=== PATIENT | female | born 1980 ===

== ENCOUNTER 2018-05-01 11:35 | Emergency (ER) | payer OTHER ==
[2018-05-01 14:26] LABS: BASO % 0.4 % (0.0-2.0); EOS # 0.1 K/uL (0.0-0.7); EOS % 0.6 % (0.0-4.0); HEMOGLOBIN 13.9 g/dL (12.0-16.0); LYMPH # 1.7 K/uL (1.0-4.3); LYMPH % 18.2 % (20.0-40.0); MEAN CELL VOLUME 90.2 fl (81.0-99.0); MEAN CORPUSCULAR HEMOGLOBIN 30.6 pg (27.0-31.0); MEAN CORPUSCULAR HGB CONC 33.9 g/dL (33.0-37.0); MEAN PLATELET VOLUME 8.6 fl (7.2-11.7); MONO # 0.8 K/uL (0.0-0.8); MONO % 8.7 % (0.0-10.0); NEUT # 6.6 K/uL (1.8-7.0); NEUT % 72.1 % (50.0-75.0); NRBC % 0.1 % (0.0-0.0); RBC 4.55 Mil/uL (3.80-5.20); RED CELL DISTRIBUTION WIDTH 15.8 % (11.5-14.5); WHITE BLOOD COUNT 9.1 K/uL (4.8-10.8)
[2018-05-01 14:39] LABS: ALB/GLOB RATIO 1.3 (1.0-2.1); ALBUMIN 4.2 g/dL (3.5-5.0); ALT/SGPT 56 U/L (9-52); AST/SGOT 32 U/L (14-36); BLOOD UREA NITROGEN 17 mg/dl (7-17); CALCIUM 9.4 mg/dL (8.4-10.2); GFR NON-AFRICAN AMERICAN > 60
[2018-05-01] MEDS ORDERED: Potassium Chloride 20 mEq ER Tab PO ONE (15:05)
[2018-05-01] MEDS: Potassium Chloride 20 mEq ER Tab PO ONE (15:05)
--- NOTE | 2018-05-01 15:08 | ED PDOC ---
HPI: Eye Injury/Pain Time Seen by Provider: 05/01/18 13:34 Chief Complaint (Nursing): Eye Problem History Per: Patient History/Exam Limitations: no limitations Onset/Duration Of Symptoms: Days Current Symptoms Are (Timing): Still Present Injury To Eye?: No Wears Contact Lens?: No Associated Symptoms: Decreased Vision, Swelling, Discharge From Eye. denies: Pain, FB Sensation, Itching Additional History Per: Patient Additional Complaint(s): 37 y/o female with no significant PMH presents to the ED c/o bilateral eye redness, swelling, and discomfort x 1 week. States she has intermittent yellow eye drainage. Pt has a wide range of associated complaints to include blurry vision, frontal headache, rashes on legs, and feeling tremulous. Describes vision changes as floaters. 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 Pt has never been evaluated by a clinic or PMD. Pt has not taken any medications for her symptoms. She does not wear contact lenses or glasses. Denies chemical exposure, eye trauma, fevers, chills, eye pain, ear pain, sore throat, cough, SOB, chest pain, N/V/D, abdominal pain, urinary symptoms, back pain, neck pain, numbness, weakness, paresthesias. Past Medical History Reviewed: Historical Data, Nursing Documentation, Vital Signs Vital Signs: Last Vital Signs Temp 98 F 05/01/18 11:59 Pulse 88 05/01/18 11:59 Resp 16 05/01/18 11:59 BP 158/95 H 05/01/18 11:59 Pulse Ox 99 05/01/18 11:59 - Family History Family History: States: Unknown Family Hx - Home Medications Home Medications: Ambulatory Orders Medication Instructions Recorded Hydrocortisone 1% Cream [Cortizone 1 appl TP DAILY PRN #1 tube 05/01/18 1% Cream] Metoprolol Succinate [Toprol Xl] 25 mg PO DAILY #30 tab.er.24h 05/01/18 Polymyxin B Sulf/Trimethoprim 1 drop BOTHEYES Q3H #1 bottle 05/01/18 [Polymyxin B-Tmp Eye Drops] - Allergies Allergies/Adverse Reactions: Allergies Allergy/AdvReac Type Severity Reaction Status Date / Time No Known Allergies Allergy Verified 05/01/18 12:02 Review of Systems ROS Statement: Except As Marked, All Systems Reviewed And Found Negative Constitutional: Negative for: Fever, Chills Eyes: Positive for: Vision Change, Conjunctivae Inflammation, Redness. Negative for: Pain ENT: Negative for: Ear Pain, Nose Pain, Nose Congestion, Mouth Pain, Throat Pain, Throat Swelling Cardiovascular: Negative for: Chest Pain, Palpitations, Light Headedness Respiratory: Negative for: Cough, Shortness of Breath Gastrointestinal: Negative for: Nausea, Vomiting, Abdominal Pain Genitourinary Female: Negative for: Dysuria, Frequency Musculoskeletal: Negative for: Neck Pain, Shoulder Pain, Arm Pain, Back Pain, Hand Pain, Leg Pain, Foot Pain Skin: Positive for: Rash (right leg) Neurological: Positive for: Headache, Other ("shaky"). Negative for: Weakness, Numbness, Incoordination, Change in Speech, Confusion, Seizures, Altered Mental Status, Dizziness Physical Exam - Reviewed Nursing Documentation Reviewed: Yes Vital Signs Reviewed: Yes - Physical Exam Appears: Positive for: Well, Non-toxic, No Acute Distress Head Exam: Positive for: ATRAUMATIC, NORMAL INSPECTION, NORMOCEPHALIC Skin: Positive for: Warm, Dry, Rash (eczematous rash on right calf) Eye Exam: Positive for: EOMI, PERRL, Conjunctival injection. Negative for: Periorbital swelling, Periorbital tenderness ENT: Positive for: Normal ENT Inspection Neck: Positive for: Normal, Painless ROM Cardiovascular/Chest: Positive for: Regular Rate, Rhythm Respiratory: Positive for: Normal Breath Sounds. Negative for: Decreased Breath Sounds, Rales, Rhonchi, Wheezing Pulses-Radial (L): 2+ Pulses-Radial (R): 2+ Gastrointestinal/Abdominal: Positive for: Normal Exam, Bowel Sounds (normal), Soft. Negative for: Tenderness Back: Positive for: Normal Inspection Extremity: Positive for: Normal ROM. Negative for: Tenderness, Deformity, Swelling Lymphatic: Positive for: Normal Exam. Negative for: Adenopathy Neurologic/Psych: Positive for: Alert, speech and language assistant II-XII (intact), Oriented, Cerebellar Tests (normal), Gait (steady). Negative for: Motor/Sensory Deficits, Aphasia, Facial Droop - Laboratory Results Result Diagrams: 05/01/18 14:18 05/01/18 14:18 - ECG O2 Sat by Pulse Oximetry: 99 Medical Decision Making Medical Decision Making: Initial Plan: * CBC * CMP * TSH * IVF * Visual acuity Visual acuity: 20/25 bilaterally Potassium found to be 3.3, will give 20mEq KDur. Lab work otherwise unremarkable. 1520 While trying to d/c patient, bp was noted at 157/109. Patient is also complain ing of a new onset worsening headache associated with blurry vision. Denies nausea, vomiting, SOB, focal / neuro deficits, chest pain, or hx of htn. Will order CT head and EKG. CT head: no intracranial hemorrhage. chronic changes as noted in report. EKG: rate 72, NSR, intervals normal, no ST elevations Case discussed with Dr. Hanks. 1645 BP 160/110 Will attempt to lower pressure with oral agents and observe in ED for lowering of BP. Metoprolol 25mg given. 1745 Pressure persistently elevated at 160/109, will give Clonidine 0.1mg 1845 Pressure persistently elevated at 159/108, will give Clonidine 0.2mg Pt given something to eat, resting comfortably in bed with TV on. 1925 Pressure 137/93. Will give prescription for Metoprolol 25mg daily with instructions to followup with PMD or clinic within 2 days for BP check and management. Pt reports resolution of headache, asking to be discharged home. Risks of chronically elevated BP discussed with pt at length. Educated on use of prescription medications and importance of followup with PMD, Opthamology, and neurology. Pt verbalized understanding and agrees with plan of care. Pt stable for discharge home. Impression: Conjunctivitis, Elevated BP reading Plan: * metoprolol * hydrocortisone cream * polymixin B eye drops * increase fluids * PMD/clinic followup * Neurology followup * Opthalmology followup * return for new/worsening symptoms Disposition - Clinical Impression Clinical Impression: Conjunctivitis, Elevated blood pressure reading - Patient ED Disposition Is Patient to be Admitted: No Discussed With Dr.: Thiago Hanks (Recommends lowering of BP with oral medications) Counseled Patient/Family Regarding: Studies Performed, Diagnosis, Need For Followup, Rx Given - Disposition Referrals: Rupert Aguilar MD [Staff Provider] - Edward Adams MD [Medical Doctor] - [facility] [Outside] [facility] [Outside] Disposition: Routine/Home Disposition Time: 15:08 Condition: IMPROVED Additional Instructions: Use gotas para los ojos, cassidy gota por marycruz cada 3 horas mientras est despierto Irena metoprolol acssidy vez al da. Seguimiento con clnica dentro de 2 miles por presin arterial. Seguimiento con neurologa en 2 miles. Seguimiento con oftalmologa en 2 miles. Volver a la jude de emergencias con sntomas nuevos o que empeoran Prescriptions: Hydrocortisone 1% Cream [Cortizone 1% Cream] 1 appl TP DAILY PRN #1 tube PRN Reason: Itching / Pruritus Metoprolol Succinate [Toprol Xl] 25 mg PO DAILY #30 tab.er.24h Polymyxin B Sulf/Trimethoprim [Polymyxin B-Tmp Eye Drops] 1 drop BOTHEYES Q3H #1 bottle Instructions: Conjunctivitis (Pinkeye), Hypertension (ED) Forms: [employer] (Grenadian) Print Language: GAMBIAN
[2018-05-01 15:25] VITALS: RESP 18
--- NOTE | 2018-05-01 15:59 | CT ---
Date of service: 05/01/2018 PROCEDURE: CT HEAD WITHOUT CONTRAST. HISTORY: headache COMPARISON: None available. TECHNIQUE: Axial computed tomography images were obtained through the head/brain without intravenous contrast. Radiation dose: Total exam DLP = 725.14 mGy-cm. This CT exam was performed using one or more of the following dose reduction techniques: Automated exposure control, adjustment of the mA and/or kV according to patient size, and/or use of iterative reconstruction technique. FINDINGS: HEMORRHAGE: No intracranial hemorrhage. BRAIN: Evaluation of the intracranial parenchyma is remarkable only for dense calcifications at the medial bilateral basal ganglia. Intraparenchymal calcifications in patient under 40 years are abnormal, frequently the basis of inflammatory or infectious causes in the past. The differential diagnosis for this pattern is quite broad when the etiology is unknown and could include toxic poisoning (are monoxide, methanol and others), systemic metabolic abnormality (liver disease, hyperglycemia or hypoglycemia, Silviano disease and others), brain degenerative disorders such is Gates disease and neuro degenerative with brain iron accumulation, with neoplasm not excluded though this is symmetry of the current findings. The remainder of the cerebellum, brainstem and cerebellum appear normal. No mass effect. No suspicious extra-axial collection. VENTRICLES: Unremarkable. No hydrocephalus. CALVARIUM: Unremarkable. PARANASAL SINUSES: Unremarkable as visualized. No significant inflammatory changes. MASTOID AIR CELLS: Unremarkable as visualized. No inflammatory changes. OTHER FINDINGS: None. IMPRESSION: Dense bilateral basal ganglia calcifications are identified potentially from post infectious or post inflammatory causes though etiology is nonspecific. There is a lengthy differential diagnosis an neurological follow-up is advised. Please see discussion above. Exam otherwise unremarkable.
[2018-05-01 16:47] VITALS: O2SAT 99
[2018-05-01 19:52] VITALS: BP 137/90; PULSE 76; TEMP 98
--- NOTE | 2018-05-02 07:14 | CARD ---
APPROVED REPORT Date of service: 05/01/2018 EKG Measurement Heart [id number] <Conclusion> Normal sinus rhythm Normal ECG
== END 2018-05-01 19:50 | disposition home or self-care (01) ==
LOC: H.ER 11:35
DX: H10.9 Unspecified conjunctivitis (principal); Z79.899 Other long term (current) drug therapy

== ENCOUNTER 2018-05-31 12:50 | Emergency (ER) | payer SELFPAY ==
[2018-05-31 12:59] VITALS: RESP 18
[2018-05-31] MEDS ORDERED: Sodium Chloride 0.9% 1,000 ML IV STA (13:17)
--- NOTE | 2018-05-31 13:19 | ED PDOC ---
HPI: Hypertension/Hypotension Time Seen by Provider: 05/31/18 13:17 Chief Complaint (Nursing): High Blood Pressure Chief Complaint (Provider): HEADACHE History Per: Patient (38 Y/O FEMALE HERE WITH HEADACHE X 10 DAYS ONGOING. NOTED TO HAVE ELEVATED BLOOD PRESSURE. HAS BEEN ON HCTZ/LISINOPRIL BUT NOTED TO HAVE LOW POTASSIUM AND HCTZ D/C TODAY. WAS STARTED ON MOTRIN AND NORTRIPTYLINE THIS WEEK FOR HEADACHE. SENT TO HOSPITAL FOR ELEVATED BLOOD PRESSURE. DENIES ANY BRYANNA ST PAIN/SOB/ETC.) Past Medical History Reviewed: Historical Data, Nursing Documentation, Vital Signs Vital Signs: Last Vital Signs Temp 97.2 F L 05/31/18 12:56 Pulse 92 H 05/31/18 12:56 Resp 18 05/31/18 12:56 BP 199/127 H 05/31/18 12:56 Pulse Ox 100 05/31/18 12:56 - Medical History PMH: HTN - Family History Family History: States: Unknown Family Hx - Home Medications Home Medications: Ambulatory Orders Medication Instructions Recorded Hydrocortisone 1% Cream [Cortizone 1 appl TP DAILY PRN #1 tube 05/01/18 1% Cream] Metoprolol Succinate [Toprol Xl] 25 mg PO DAILY #30 tab.er.24h 05/01/18 Polymyxin B Sulf/Trimethoprim 1 drop BOTHEYES Q3H #1 bottle 05/01/18 [Polymyxin B-Tmp Eye Drops] - Allergies Allergies/Adverse Reactions: Allergies Allergy/AdvReac Type Severity Reaction Status Date / Time No Known Allergies Allergy Verified 05/31/18 12:56 Review of Systems ROS Statement: Except As Marked, All Systems Reviewed And Found Negative Neurological: Positive for: Headache Physical Exam - Reviewed Nursing Documentation Reviewed: Yes Vital Signs Reviewed: Yes - Physical Exam Appears: Positive for: Well, Non-toxic, No Acute Distress Head Exam: Positive for: ATRAUMATIC, NORMAL INSPECTION, NORMOCEPHALIC Skin: Positive for: Normal Color, Warm, DRY Eye Exam: Positive for: EOMI, Normal appearance, PERRL ENT: Positive for: Normal ENT Inspection Neck: Positive for: Normal, Painless ROM Cardiovascular/Chest: Positive for: Regular Rate, Rhythm Respiratory: Positive for: CNT, Normal Breath Sounds Gastrointestinal/Abdominal: Positive for: Normal Exam, Soft Back: Positive for: Normal Inspection Extremity: Positive for: Normal ROM Neurologic/Psych: Positive for: Alert, Oriented - Laboratory Results Result Diagrams: 05/31/18 13:40 05/31/18 13:40 - ECG O2 Sat by Pulse Oximetry: 100 - Progress ED Course And Treament: REGLAN 10 MG IV X 1 DOSE ACETAMINOPHEN 975MG X 1 DOSE NS 1 LITER 500ML PER HOUR HEAD CT: IMPRESSION: Stable unenhanced head CT with no acute interval findings as compared prior CT dated 05/01/2018. Bilateral medial basal ganglia calcifications are reiterated of uncertain origin. Clinically correlate further. REPEAT BP IMPROVED 142/82 Disposition - Clinical Impression Clinical Impression: Bilateral headaches, Hypertension - Patient ED Disposition Is Patient to be Admitted: No - Disposition Disposition: Routine/Home Disposition Time: 15:05 Condition: FAIR Instructions: Headache, Adult, DASH Diet Print Language: SETSWANA
[2018-05-31 13:50] LABS: URINE BILIRUBIN NEGATIVE (NEGATIVE); URINE BLOOD NEGATIVE (NEGATIVE); URINE CLARITY CLOUDY (Clear); URINE COLOR YELLOW (YELLOW); URINE GLUCOSE (UA) NEG (Normal); URINE LEUKOCYTE ESTERASE TRACE Leu/uL (Negative); URINE PROTEIN NEGATIVE (NEGATIVE); URINE UROBILINOGEN 0.2-1.0 mg/dL (0.2-1.0)
[2018-05-31 14:03] LABS: BASO % 0.2 % (0.0-2.0); EOS % 0.1 % (0.0-4.0); HEMOGLOBIN 12.9 g/dL (12.0-16.0); LYMPH # 1.2 K/uL (1.0-4.3); LYMPH % 9.3 % (20.0-40.0); MEAN CELL VOLUME 90.8 fl (81.0-99.0); MEAN CORPUSCULAR HEMOGLOBIN 30.1 pg (27.0-31.0); MEAN CORPUSCULAR HGB CONC 33.2 g/dL (33.0-37.0); MEAN PLATELET VOLUME 8.5 fl (7.2-11.7); MONO # 0.7 K/uL (0.0-0.8); MONO % 5.5 % (0.0-10.0); NEUT # 10.6 K/uL (1.8-7.0); NEUT % 84.9 % (50.0-75.0); NRBC % 0.1 % (0.0-0.0); PLATELET COUNT 229 K/uL (130-400); RBC 4.28 Mil/uL (3.80-5.20); RED CELL DISTRIBUTION WIDTH 16.2 % (11.5-14.5); WHITE BLOOD COUNT 12.5 K/uL (4.8-10.8)
--- NOTE | 2018-05-31 14:05 | CT ---
Date of service: 05/31/2018 PROCEDURE: CT HEAD WITHOUT CONTRAST. HISTORY: HEADACHE/HTN COMPARISON: Noncontrast head CT 05/01/2018. TECHNIQUE: Axial computed tomography images were obtained through the head/brain without intravenous contrast. Radiation dose: Total exam DLP = 769.65 mGy-cm. This CT exam was performed using one or more of the following dose reduction techniques: Automated exposure control, adjustment of the mA and/or kV according to patient size, and/or use of iterative reconstruction technique. FINDINGS: HEMORRHAGE: No intracranial hemorrhage. BRAIN: Stable dense bilateral medial basal ganglia calcifications are identified once again. Nevertheless, no interval disruption of the corticomedullary differentiation is appreciated overall, above and below the tentorium. There is no cortical edema or mass effect. Midline brain anatomy remains normal appearing as well as the posterior fossa contents. VENTRICLES: Unremarkable. No hydrocephalus. CALVARIUM: Unremarkable. PARANASAL SINUSES: Unremarkable as visualized. No significant inflammatory changes. MASTOID AIR CELLS: Unremarkable as visualized. No inflammatory changes. OTHER FINDINGS: None. IMPRESSION: Stable unenhanced head CT with no acute interval findings as compared prior CT dated 05/01/2018. Bilateral medial basal ganglia calcifications are reiterated of uncertain origin. Clinically correlate further.
[2018-05-31 14:16] LABS: ALB/GLOB RATIO 1.3 (1.0-2.1); ALBUMIN 4.1 g/dL (3.5-5.0); ALT/SGPT 43 U/L (9-52); AST/SGOT 26 U/L (14-36); BLOOD UREA NITROGEN 21 mg/dl (7-17); CALCIUM 9.1 mg/dL (8.4-10.2); GFR NON-AFRICAN AMERICAN > 60
[2018-05-31 14:26] LABS: SQUAMOUS EPITHIAL 5 /hpf (0-5)
[2018-05-31 15:17] LABS: LYMPHOCYTE 10 % (20-50); MONOCYTE 8 % (0-10); NEUTROPHIL 82 % (42-75); PLATELET ESTIMATE NORMAL (NORMAL); TOTAL CELLS COUNTED 100
[2018-05-31 15:18] LABS: ANISOCYTOSIS SLIGHT; LARGE PLATELETS PRESENT; MICROCYTOSIS SLIGHT; OVALOCYTES SLIGHT; POIKILOCYTOSIS SLIGHT; TEARDROP CELLS SLIGHT
[2018-05-31 16:05] VITALS: BP 146/78; PULSE 79; TEMP 97.9; O2SAT 98
--- NOTE | 2018-05-31 18:30 | CARD ---
APPROVED REPORT Date of service: 05/31/2018 EKG Measurement Heart [id number] <Conclusion> Normal sinus rhythm Normal ECG
== END 2018-05-31 16:03 | disposition home or self-care (01) ==
LOC: H.ER 12:50
DX: R51 Headache (principal); I10 Essential (primary) hypertension
CPT/HCPCS: 70450; 80053; 81003; 81025; 83735; 84484; 85025; 93005; 96374; 99284; J2765; J7030

== ENCOUNTER 2018-08-21 12:52 | Emergency (ER) | payer SELFPAY ==
[2018-08-21 12:52] VITALS: BMI 38.6
--- NOTE | 2018-08-21 15:40 | ED PDOC ---
HPI: General Adult Time Seen by Provider: 08/21/18 15:14 Chief Complaint (Nursing): Abnormal Labs Chief Complaint (Provider): Abnormal Labs History Per: Patient History/Exam Limitations: no limitations Onset/Duration Of Symptoms: Days Current Symptoms Are (Timing): Still Present Additional Complaint(s): Connor Hoang is a 38 year old female with a past medical history of hypertension who was sent to the ED by PMD for evaluation of abnormal labs. Patient states that she was recently diagnosed with an adrenal tumor and had lab workup done yesterday when they discovered that her potassium level was low and her PMD recommended her to present to the ED for evaluation. She reports that she is scheduled for a follow up PMD appointment next Sunday and is scheduled for an appointment with her transcription typist next Sunday. Patient also admits that she has had chronic weakness, body aches, and feeling of pressure in chest but states that it has been going on for some time and it isnt worse today. PMD: Lenny Thrasher Past Medical History Reviewed: Historical Data, Nursing Documentation, Vital Signs Vital Signs: Last Vital Signs Temp 97.4 F L 08/21/18 13:58 Pulse 94 H 08/21/18 13:58 Resp 16 08/21/18 13:58 BP 152/102 H 08/21/18 13:58 Pulse Ox 96 08/21/18 13:58 - Medical History PMH: HTN - Surgical History Surgical History: Cholecystectomy Other surgeries: Hysterectomy - Family History Family History: States: Unknown Family Hx - Social History Current smoker - smoking cessation education provided: No Alcohol: None Drugs: Denies - Immunization History Hx Tetanus Toxoid Vaccination: No Hx Influenza Vaccination: No Hx Pneumococcal Vaccination: No - Home Medications Home Medications: Ambulatory Orders Medication Instructions Recorded RX: Prednisone 50 mg PO DAILY #5 tablet 04/12/16 - Allergies Allergies/Adverse Reactions: Allergies Allergy/AdvReac Type Severity Reaction Status Date / Time No Known Allergies Allergy Verified 08/21/18 13:58 Review of Systems ROS Statement: Except As Marked, All Systems Reviewed And Found Negative Constitutional: Positive for: Weakness, Other (body aches ) Cardiovascular: Positive for: Chest Pain (pressure ) Physical Exam - Reviewed Nursing Documentation Reviewed: Yes Vital Signs Reviewed: Yes - Physical Exam Appears: Positive for: Well (overweight ), Non-toxic, No Acute Distress Head Exam: Positive for: ATRAUMATIC, NORMAL INSPECTION, NORMOCEPHALIC Skin: Positive for: Normal Color, Warm, DRY Eye Exam: Positive for: EOMI, Normal appearance, PERRL ENT: Positive for: Normal ENT Inspection Cardiovascular/Chest: Positive for: Regular Rate, Rhythm. Negative for: Murmur Respiratory: Positive for: Normal Breath Sounds. Negative for: Respiratory Distress Gastrointestinal/Abdominal: Positive for: Normal Exam, Soft. Negative for: Tenderness Extremity: Positive for: Normal ROM. Negative for: Deformity, Swelling Neurologic/Psych: Positive for: Alert, Oriented. Negative for: Motor/Sensory Deficits - Laboratory Results Result Diagrams: 08/21/18 16:11 08/21/18 21:10 - ECG ECG Rhythm: Positive for: Normal QRS, Normal ST Segment, Sinus Rhythm Rate: 82 O2 Sat by Pulse Oximetry: 96 (RA) Pulse Ox Interpretation: Normal Medical Decision Making Medical Decision Making: Time: 15:27 A/P: workup for hypokalemia --Basic labs, EKG --If potassium level within normal limits and labs otherwise unremarkable, patient will be discharged -- Will treat based on any abnormalities found Time: 2221 --Patient's potassium improved to 3.7 and patient is already instructed to follow up with transcription typist and PMD. --Return parameters were discussed. Scribe Attestation: Documented by Sheyla Sanchez, acting as a scribe for Terri Miller MD. Provider Scribe Attestation: All medical record entries made by the Scribe were at my direction and personally dictated by me. I have reviewed the chart and agree that the record accurately reflects my personal performance of the history, physical exam, medical decision making, and the department course for this patient. I have also personally directed, reviewed, and agree with the discharge instructions and disposition. Disposition - Clinical Impression Clinical Impression: Hypokalemia - Disposition Disposition: Routine/Home Disposition Time: 22:22 Condition: IMPROVED Additional Instructions: Follow up with transcription typist and primary medical doctor. Return to the emergency department if you develop chest pain, trouble breathing, weakness/dizziness, or other new symptoms. Instructions: Hypokalemia (DC) Forms: [employer] (Russian), [employer] (Sinhala) Print Language: CONGOLESE
[2018-08-21 16:34] LABS: BASO % 0.2 % (0.0-2.0); EOS % 0.2 % (0.0-4.0); HEMOGLOBIN 13.2 g/dL (12.0-16.0); LYMPH # 1.3 K/uL (1.0-4.3); MEAN CELL VOLUME 90.8 fl (81.0-99.0); MEAN CORPUSCULAR HEMOGLOBIN 30.7 pg (27.0-31.0); MEAN CORPUSCULAR HGB CONC 33.8 g/dL (33.0-37.0); MEAN PLATELET VOLUME 8.1 fl (7.2-11.7); MONO # 0.5 K/uL (0.0-0.8); MONO % 4.9 % (0.0-10.0); NEUT # 8.9 K/uL (1.8-7.0); NEUT % 82.7 % (50.0-75.0); NRBC % 0.2 % (0.0-0.0); RBC 4.29 Mil/uL (3.80-5.20); WHITE BLOOD COUNT 10.8 K/uL (4.8-10.8)
[2018-08-21 16:51] LABS: BLOOD UREA NITROGEN 20 mg/dl (7-17); CALCIUM 9.6 mg/dL (8.4-10.2); GFR NON-AFRICAN AMERICAN > 60
[2018-08-21] MEDS ORDERED: Potassium Chloride 20 mEq ER Tab PO ONE ×3 (16:58→20:54)
[2018-08-21] MEDS ORDERED: Potassium CL 10 MEQ/50 ML 100 ML ONE (17:03)
[2018-08-21] MEDS: Potassium CL 10 MEQ/50 ML 50 ML IVPB SCH ×2 (17:09→18:09)
[2018-08-21] MEDS ORDERED: Potassium Chloride 20 mEq ER Tab PO STA (19:54)
[2018-08-21 21:32] LABS: BLOOD UREA NITROGEN 16 mg/dl (7-17); CALCIUM 8.6 mg/dL (8.4-10.2); GFR NON-AFRICAN AMERICAN > 60
[2018-08-22 05:26] VITALS: BP 133/77; RESP 18; TEMP 97.7
[2018-08-24 09:49] VITALS: PULSE 82; O2SAT 96
== END 2018-08-21 22:35 | disposition home or self-care (01) ==
LOC: H.ER 12:52
DX: E87.6 Hypokalemia (principal); I10 Essential (primary) hypertension
CPT/HCPCS: 80048; 81025; 85025; 99284; J3480

== ENCOUNTER 2018-09-08 16:51 | Observation (INO) | payer MEDICAID, SELFPAY ==
[2018-09-08 16:51] VITALS: BMI 38.6
[2018-09-08 17:55] LABS: VENOUS BLOOD GAS BASE EXCESS 4.8 mmol/L (0.0-2.0); VENOUS BLOOD GAS PCO2 45 mmHg (40-60); VENOUS BLOOD GAS PO2 41 mm/Hg (30-55); VENOUS BLOOD PH 7.43 (7.32-7.43)
--- NOTE | 2018-09-08 17:55 | ED PDOC ---
HPI: Chest Pain Time Seen by Provider: 09/08/18 17:10 Chief Complaint (Nursing): Chest Pain Chief Complaint (Provider): Chest Pain History Per: Patient History/Exam Limitations: no limitations Onset/Duration Of Symptoms: Days Current Symptoms Are (Timing): Still Present Additional Complaint(s): 38 y/o female with a PMHx of keith's disease and HTN presents to the ED for evaluation of chest pain and shortness of breath. Patient reports of having mild chest pain over the past six months since being diagnosed with Keith's Disease. Patient states over the last two weeks, symptoms have worsened. Patient notes of getting progressively short of breath and having decreasing exercise tolerance. Patient reports of feeling her whole body getting more swollen, severely weak and notes of developing a rash to the upper chest and legs. Patient states she is additionally feeling anxious and lightheaded. Of note, patient reports of developing a non-productive cough, sore throat and rhinorrhea over the last two days. PMD: Lenny Thrasher Against Medical Advice - AMA Patient Left Against Medical Advice: The patient declines admission to the hospital and wishes to leave the Emergency Department. This action is against my medical advice. This decision was made with informed refusal. The patient was told that admission to the hospital is necessary. Explanation of the reasons why were discussed. The risks of leaving were explained to the patient and include, but are not limited to, worsening of known or currently unknown conditions, permanent disability and from undiagnosed or untreated conditions. The patient has the capacity to make this informed decision and understands my explanation of the current medical problem and risks of leaving. The patient voluntarily accepts these risks and signed an AMA form documenting our conversation. The patient was given the opportunity to ask questions and reconsider. The patient was encouraged to return to the Emergency Department at any time for further care. Past Medical History Reviewed: Historical Data, Nursing Documentation, Vital Signs Vital Signs: Last Vital Signs Temp 97.6 F 09/08/18 16:59 Pulse 98 H 09/08/18 17:09 Resp 16 09/08/18 16:59 BP 144/88 09/08/18 17:09 Pulse Ox 94 L 09/08/18 16:59 - Medical History PMH: [place]qu[place]'s Syndrome (with adrenal mass plan for surgical resection ), HTN - Surgical History Surgical History: Cholecystectomy - Family History Family History: States: No Known Family Hx - Social History Current smoker - smoking cessation education provided: No - Immunization History Hx Tetanus Toxoid Vaccination: No Hx Influenza Vaccination: No Hx Pneumococcal Vaccination: No - Home Medications Home Medications: Ambulatory Orders Medication Instructions Recorded Prednisone 50 mg PO DAILY #5 tablet 04/12/16 - Allergies Allergies/Adverse Reactions: Allergies Allergy/AdvReac Type Severity Reaction Status Date / Time No Known Allergies Allergy Verified 08/21/18 13:58 Review of Systems ROS Statement: Except As Marked, All Systems Reviewed And Found Negative (as per HPI) Constitutional: Positive for: Weakness, Other (decreasing exercise tolerance. 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 Truncal obesity noted) Head Exam: Positive for: ATRAUMATIC, NORMOCEPHALIC Skin: Positive for: Warm, Dry Eye Exam: Positive for: EOMI, PERRL ENT: Negative for: Pharyngeal Erythema, Tonsillar Exudate Neck: Positive for: Painless ROM, Supple Cardiovascular/Chest: Positive for: Regular Rate, Rhythm. Negative for: Murmur Respiratory: Positive for: Normal Breath Sounds. Negative for: Respiratory Distress Gastrointestinal/Abdominal: Positive for: Soft. Negative for: Tenderness Back: Positive for: Normal Inspection. Negative for: Decreased ROM Extremity: Positive for: Other (Non-pitting bilateral leg and arm edema) Lymphatic: Negative for: Adenopathy Neurologic/Psych: Positive for: Alert, Oriented (x3), Mood/Affect (Anxious Mood and Affect). 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 Plan: -- Type and Screen -- VBG -- EKG -- B-Type Natriuretic -- CMP -- Electrolyte, Urine -- Magnesium -- Phosphorus -- Thyroid Stimulating Hormone -- Troponin I -- ED Urine Dipstick -- CBC with Differentials -- D Dimer -- PTT -- Prothrombin Time -- CXR Portable -- Glucose, POC -- Blood Culture -- Urine Culture -- IV Insertion -- Influenza A B -- Urinalysis Accession No. : [id number] Patient Name / ID : TIM RENDON / [id number] Exam Date : 09/08/2018 17:49:34 ( Approved ) Study Comment : Sex / Age : F / 38Y Creator : Michael Butcher MD Dictator : Michael Butcher MD Chief Passenger Ship Steward/Stewardess : Analytical Consultant : Michael Butcher MD Approver2 : Report Date : 09/08/2018 18:23:18 My Comment : Date of service: 09/08/2018 HISTORY: sob COMPARISON: Chest radiograph dated 07/28/2009. FINDINGS: LUNGS: No active pulmonary disease. PLEURA: No significant pleural effusion identified, no pneumothorax apparent. CARDIOVASCULAR: No aortic atherosclerotic calcification present. Normal cardiac size. No pulmonary vascular congestion. OSSEOUS STRUCTURES: No significant abnormalities. VISUALIZED UPPER ABDOMEN: Normal. OTHER FINDINGS: None. IMPRESSION: No active disease. Time: 1917 -- Labs are unremarkable. Patient needs hospitalization for chest pain and shortness of breath with new onset DM. Discussed with Dr. Estrada, hospitalist who will be admitting the clinic patient. Time: 1941 -- Patient is requesting to leave against medical advice. [facility] [employer] Lead Jamel, #[id number] used. __ Scribe Attestation: Documented by Sergio Bella, acting as a scribe for Diamond Mojica MD. Provider Scribe Attestation: All medical record entries made by the Scribe were at my direction and personally dictated by me. I have reviewed the chart and agree that the record accurately reflects my personal performance of the history, physical exam, medical decision making, and the department course for this patient. I have also personally directed, reviewed, and agree with the discharge instructions and disposition. Disposition - Clinical Impression Clinical Impression: Chest pain, Shortness of breath - Patient ED Disposition Is Patient to be Admitted: No Counseled Patient/Family Regarding: Studies Performed, Diagnosis - Disposition Disposition: Against Medical Advice Disposition Time: 19:43 Condition: UNKNOWN
--- NOTE | 2018-09-08 18:26 | RAD ---
Date of service: 09/08/2018 HISTORY: sob COMPARISON: Chest radiograph dated 07/28/2009. FINDINGS: LUNGS: No active pulmonary disease. PLEURA: No significant pleural effusion identified, no pneumothorax apparent. CARDIOVASCULAR: No aortic atherosclerotic calcification present. Normal cardiac size. No pulmonary vascular congestion. OSSEOUS STRUCTURES: No significant abnormalities. VISUALIZED UPPER ABDOMEN: Normal. OTHER FINDINGS: None. IMPRESSION: No active disease.
[2018-09-08 18:28] LABS: BASO % 0.1 % (0.0-2.0); EOS % 0.1 % (0.0-4.0); HEMOGLOBIN 11.5 g/dL (12.0-16.0); LYMPH # 0.9 K/uL (1.0-4.3); LYMPH % 8.4 % (20.0-40.0); MEAN CELL VOLUME 91.3 fl (81.0-99.0); MEAN CORPUSCULAR HEMOGLOBIN 30.2 pg (27.0-31.0); MEAN CORPUSCULAR HGB CONC 33.1 g/dL (33.0-37.0); MEAN PLATELET VOLUME 8.4 fl (7.2-11.7); MONO # 0.7 K/uL (0.0-0.8); MONO % 6.5 % (0.0-10.0); NEUT # 9.3 K/uL (1.8-7.0); NEUT % 84.9 % (50.0-75.0); PLATELET COUNT 222 K/uL (130-400); RBC 3.82 Mil/uL (3.80-5.20); RED CELL DISTRIBUTION WIDTH 17.1 % (11.5-14.5)
[2018-09-08 18:39] LABS: ALB/GLOB RATIO 1.3 (1.0-2.1); ALBUMIN 3.6 g/dL (3.5-5.0); ALT/SGPT 46 U/L (9-52); AST/SGOT 19 U/L (14-36); BLOOD UREA NITROGEN 16 mg/dl (7-17); CALCIUM 8.8 mg/dL (8.4-10.2); GFR NON-AFRICAN AMERICAN > 60
[2018-09-08 18:42] LABS: INR 0.9; PROTHROMBIN TIME 10.6 Seconds (9.8-13.1)
[2018-09-08 18:45] LABS: PARTIAL THROMBOPLASTIN TIME 23.6 Seconds (25.6-37.1)
[2018-09-08 18:48] LABS: B-TYPE NATRIURETIC PEPTIDE 62.8 pg/ml (0-450)
[2018-09-08 18:52] LABS: D DIMER < 200 ng/mlDDU (0-230); SQUAMOUS EPITHIAL 10 /hpf (0-5); URINE BILIRUBIN NEGATIVE (NEGATIVE); URINE BLOOD NEGATIVE (NEGATIVE); URINE CLARITY SLIGHTY-CLOUDY (Clear); URINE COLOR YELLOW (YELLOW); URINE GLUCOSE (UA) >=500 mg/dL (NEGATIVE); URINE LEUKOCYTE ESTERASE TRACE Leu/uL (Negative); URINE PROTEIN NEGATIVE (NEGATIVE); URINE UROBILINOGEN 0.2-1.0 mg/dL (0.2-1.0)
[2018-09-08 19:06] LABS: BANDS 2 % (0-2); LYMPHOCYTE 9 % (20-50); MONOCYTE 5 % (0-10); NEUTROPHIL 84 % (42-75); PLATELET ESTIMATE NORMAL (NORMAL); TOTAL CELLS COUNTED 100
[2018-09-08] MEDS ORDERED: Insulin Regular 100 units/ml SC STA (19:12)
[2018-09-08 19:56] VITALS: BP 147/90; RESP 22; TEMP 98
[2018-09-08 20:09] VITALS: PULSE 91; O2SAT 94
--- NOTE | 2018-09-09 07:53 | CARD ---
APPROVED REPORT Date of service: 09/08/2018 EKG Measurement Heart [id number] <Conclusion> Normal sinus rhythm ST & T wave abnormality, consider lateral ischemia Abnormal ECG
== END 2018-09-08 20:16 | disposition left against medical advice (07) ==
LOC: H.ER 16:51 → H.ERHOLD 19:15
PROVIDERS: ADMIT Student in an Organized Health Care Education/Training Program; ATTEND Student in an Organized Health Care Education/Training Program
DX: R07.9 Chest pain, unspecified (principal); E24.9 Cushing's syndrome, unspecified; I10 Essential (primary) hypertension; R53.1 Weakness
CPT/HCPCS: 71045; 80053; 81003; 82436; 82803; 82948; 83735; 83880; 84100; 84132; 84300; 84443; 84484; 85025; 85378; 85610; 85730; 86850; 86900; 87040; 87086; 87804; 93005; 96372; 99285; G0378

== ENCOUNTER 2018-09-18 15:37 | Observation (INO) | payer MEDICAID, SELFPAY ==
--- NOTE | 2018-09-18 16:32 | ED PDOC ---
HPI: General Adult Time Seen by Provider: 09/18/18 16:10 Chief Complaint (Nursing): Abnormal Labs Chief Complaint (Provider): Abnormal Labs History Per: Patient History/Exam Limitations: no limitations Onset/Duration Of Symptoms: Days (x7) Current Symptoms Are (Timing): Still Present Additional Complaint(s): 38 year old female with a past medical history of Cushings disease and hypertension who is presenting to the ED for evaluation after being sent to the ER for low potassium. Patient reports feeling muscle pain diffusely associated with generalized weakness, body aches, shortness of breath, and fatigue ongoing for 1 week. She admits that she had outpatient blood work done and was called today to present to the ED for a potassium level of 2.9. Patient denies any fevers and offers no other medical complaints at this time. 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 ), HTN - Surgical History Surgical History: Cholecystectomy - Family History Family History: States: Unknown Family Hx - Social History Current smoker - smoking cessation education provided: No Alcohol: None Drugs: Denies - Immunization History Hx Tetanus Toxoid Vaccination: No Hx Influenza Vaccination: No Hx Pneumococcal Vaccination: No - Home Medications Home Medications: Ambulatory Orders Medication Instructions Recorded Doxazosin [Cardura] 1 mg PO HS 09/18/18 Lisinopril [Zestril] 20 mg PO DAILY 09/18/18 Blanco-3 Fatty Acids [Blanco-3] 1 cap PO DAILY 09/18/18 Spironolactone [Aldactone] 50 mg PO HS 09/18/18 amLODIPine [Norvasc] 10 mg PO DAILY 09/18/18 - Allergies Allergies/Adverse Reactions: Allergies Allergy/AdvReac Type Severity Reaction Status Date / Time No Known Allergies Allergy Verified 09/18/18 16:01 Review of Systems ROS Statement: Except As Marked, All Systems Reviewed And Found Negative Constitutional: Positive for: Chills, Weakness (generalized ), Other (fatigue and body aches with facial swelling ). Negative for: Fever Respiratory: Positive for: Shortness of Breath Physical Exam - Reviewed Nursing Documentation Reviewed: Yes Vital Signs Reviewed: Yes - Physical Exam Appears: Positive for: No Acute Distress (tired appearing; chan face consistent with Cushings syndrome ) Head Exam: Positive for: ATRAUMATIC, NORMOCEPHALIC Skin: Positive for: Warm, Dry Eye Exam: Positive for: EOMI, PERRL ENT: Negative for: Pharyngeal Erythema, Tonsillar Exudate Neck: Positive for: Painless ROM, Supple Cardiovascular/Chest: Positive for: Regular Rate, Rhythm. Negative for: Murmur Respiratory: Positive for: Normal Breath Sounds. Negative for: Respiratory Distress Gastrointestinal/Abdominal: Positive for: Normal Exam, Soft, Other (central obesity ). Negative for: Tenderness, Distended, Rebound Back: Positive for: Normal Inspection. Negative for: Muscle Spasm Extremity: Positive for: Other (bilateral lower extremities: tenderness to palpation diffusely with trace edema ) Lymphatic: Negative for: Adenopathy Neurological/Psych: Positive for: Awake, Alert. Negative for: Motor/Sensory Deficits - Laboratory Results Result Diagrams: 09/18/18 16:33 09/18/18 16:33 - ECG ECG: Positive for: Interpreted By Ms ECG Rhythm: Positive for: Normal QRS, Normal ST Segment, Sinus Rhythm Rate: 96 O2 Sat by Pulse Oximetry: 96 (RA) Pulse Ox Interpretation: Normal - Radiology X-Ray: Interpreted by Ms X-Ray Interpretation: No Acute Disease Medical Decision Making Medical Decision Making: Time: 16:17 Impression: hypokalemia Differentials: electrolyte abnormality, dehydration, renal failure Plan: --Blood Type and Screen --VBG --EKG --BNP --CMP --Cortisol --Magnesium --Osmolarity, Serum --Phosphorous --Troponin --ED Urine --ED Urine Dipstick --CBC --Coags --Chest x-ray --Urine Culture --Urinalysis Potassium in labwork 3.[address] Doe Vasquez Scribe Attestation: Documented by Sheyla Sanchez, acting as a scribe for Diamond Mojica MD. Provider Scribe Attestation: All medical record entries made by the Scribe were at my direction and personally dictated by me. I have reviewed the chart and agree that the record accurately reflects my personal performance of the history, physical exam, medical decision making, and the department course for this patient. I have also personally directed, reviewed, and agree with the discharge instructions and disposition. Disposition - Clinical Impression Clinical Impression: Hypokalemia Counseled Patient/Family Regarding: Studies Performed, Diagnosis - Disposition Disposition Time: 17:00 Condition: FAIR - Pt Status Changed To: Hospital Disposition Of: Observation - POA Present On Arrival: None
[2018-09-18 16:47] LABS: VENOUS BLOOD GAS BASE EXCESS 9.4 mmol/L (0.0-2.0); VENOUS BLOOD GAS PCO2 46 mmHg (40-60); VENOUS BLOOD GAS PO2 46 mm/Hg (30-55); VENOUS BLOOD PH 7.48 (7.32-7.43)
--- NOTE | 2018-09-18 17:00 | RAD ---
Date of service: 09/18/2018 HISTORY: hypokalemia COMPARISON: 09/08/2018 FINDINGS: LUNGS: No active pulmonary disease. PLEURA: No significant pleural effusion identified, no pneumothorax apparent. CARDIOVASCULAR: No aortic atherosclerotic calcification present. Normal cardiac size. No pulmonary vascular congestion. OSSEOUS STRUCTURES: No significant abnormalities. VISUALIZED UPPER ABDOMEN: Normal. OTHER FINDINGS: None. IMPRESSION: No active disease. New support apparatus since the prior study:
[2018-09-18 17:01] LABS: BASO % 0.1 % (0.0-2.0); EOS % 0.3 % (0.0-4.0); HEMOGLOBIN 12.8 g/dL (12.0-16.0); LYMPH # 1.3 K/uL (1.0-4.3); LYMPH % 11.4 % (20.0-40.0); MEAN CELL VOLUME 89.9 fl (81.0-99.0); MEAN CORPUSCULAR HEMOGLOBIN 30.1 pg (27.0-31.0); MEAN CORPUSCULAR HGB CONC 33.5 g/dL (33.0-37.0); MEAN PLATELET VOLUME 7.9 fl (7.2-11.7); MONO # 0.7 K/uL (0.0-0.8); MONO % 6.3 % (0.0-10.0); NEUT # 9.2 K/uL (1.8-7.0); NEUT % 81.9 % (50.0-75.0); NRBC % 0.1 % (0.0-0.0); RBC 4.24 Mil/uL (3.80-5.20); RED CELL DISTRIBUTION WIDTH 16.3 % (11.5-14.5); WHITE BLOOD COUNT 11.2 K/uL (4.8-10.8)
[2018-09-18 17:04] LABS: PROTHROMBIN TIME 11.2 Seconds (9.8-13.1)
[2018-09-18 17:07] LABS: PARTIAL THROMBOPLASTIN TIME 24.4 Seconds (25.6-37.1)
[2018-09-18 17:19] LABS: ALB/GLOB RATIO 1.4 (1.0-2.1); ALT/SGPT 66 U/L (9-52); AST/SGOT 35 U/L (14-36); BLOOD UREA NITROGEN 26 mg/dl (7-17); CALCIUM 9.4 mg/dL (8.4-10.2); GFR NON-AFRICAN AMERICAN > 60
[2018-09-18 17:20] LABS: B-TYPE NATRIURETIC PEPTIDE 75.9 pg/ml (0-450)
[2018-09-18] MEDS ORDERED: Potassium Chloride 20 mEq ER Tab PO STA (17:27)
[2018-09-18 17:30] LABS: SQUAMOUS EPITHIAL 3 /hpf (0-5); URINE BACTERIA OCC (<OCC); URINE BILIRUBIN NEGATIVE (NEGATIVE); URINE BLOOD NEGATIVE (NEGATIVE); URINE CLARITY SLIGHTY-CLOUDY (Clear); URINE COLOR YELLOW (YELLOW); URINE GLUCOSE (UA) NEG (NEGATIVE); URINE LEUKOCYTE ESTERASE NEG Leu/uL (Negative); URINE PROTEIN 30 mg/dL (NEGATIVE); URINE UROBILINOGEN 0.2-1.0 mg/dL (0.2-1.0)
[2018-09-18] MEDS ORDERED: Potassium Chloride 20 mEq ER Tab PO ONE (18:15)
--- NOTE | 2018-09-18 19:46 | CP.PCM.CON ---
History of Present Illness - History of Present Illness History of Present Illness: General Surgery Note for Dr. Mirza Reason for consult: left adrenal mass 38 year old Female with PMH that includes recently diagnosed [place]'s disease, left adrenal mass, hypertension and obesity who presents to [facility] ED for hypokale norman after she received a call from her PMD today. Patient was seen and evaluated in the ED. Patient reports generalized fatigue and malaise for last few months but worsening since Sunday. She also states she had been experiencing dizziness, photophobia, flushing, palpitations and vertigo. Patient reports she has robotic adrenalectomy scheduled for 09/25/18 at [address] Jayde Morrison yesterday for cardiac risk stratification for the procedure. Denies any fever/chills, chest pain, SOB, nausea/vomiting, abdominal pain, diarrhea, urinary symptoms, constipation, numbness/tingling. PMH: Keith's disease, left adrenal mass, hypertension and obesity Meds: amlodipine, spironolactone, lisinopril, doxazosin Allergies: NKDA PSH: Cholecystectomy, Tubal ligation FH: Father: DMII, Maternal aunt: unknown [place] Social: Denies tobacco/EtOH/illicit drug use Review of Systems - Review of Systems All systems: reviewed and no additional remarkable complaints except (as per HPI) Past Patient History - Infectious Disease Hx of Infectious Diseases: None - Past Medical History & Family History Past Medical History?: Yes - Past Social History Smoking Status: Never Smoked - CARDIAC Hx Cardiac Disorders: Yes Hx Hypertension: Yes - PULMONARY Hx Respiratory Disorders: No - NEUROLOGICAL Hx Neurological Disorder: No - HEENT Hx HEENT Problems: No - RENAL Other/Comment: KEITH SYNDROME - ENDOCRINE/METABOLIC Other/Comment: KEITH SYNDROME - HEMATOLOGICAL/ONCOLOGICAL Hx Blood Disorders: No Hx Blood Transfusions: No - INTEGUMENTARY Hx Dermatological Problems: No - MUSCULOSKELETAL/RHEUMATOLOGICAL Hx Musculoskeletal Disorders: Yes Hx Back Pain: Yes Hx Falls: No - GASTROINTESTINAL Hx Gastrointestinal Disorders: No - GENITOURINARY/GYNECOLOGICAL Hx Genitourinary Disorders: No - PSYCHIATRIC Hx Psychophysiologic Disorder: No - SURGICAL HISTORY Hx Surgeries: Yes Hx Tubal Ligation: Yes (3 1/2 YEARS AGO) Other/Comment: GALLBLADDER SURGERY - ANESTHESIA Hx Anesthesia: Yes Hx Anesthesia Reactions: No Hx Malignant Hyperthermia: No Meds Allergies/Adverse Reactions: Allergies Allergy/AdvReac Type Severity Reaction Status Date / Time No Known Allergies Allergy Verified 09/18/18 16:01 - Medications Medications: Current Medications Amlodipine Besylate (Norvasc) 10 mg PO DAILY [facility] Doxazosin Mesylate (Cardura) 1 mg PO HS [facility] Enoxaparin Sodium (Lovenox) 40 mg SC DAILY [facility]; Protocol Home Med (Navarre-3 Fatty Acids [Navarre-3]) 1 cap PO DAILY [facility] Lisinopril (Zestril) 20 mg PO DAILY [facility] Pantoprazole Sodium (Protonix Ec Tab) 40 mg PO DAILY [facility] Spironolactone (Aldactone) 50 mg PO HS [facility] Physical Exam - Constitutional Appears: No Acute Distress - Head Exam Head Exam: ATRAUMATIC, NORMOCEPHALIC - Eye Exam Eye Exam: EOMI, Normal appearance - ENT Exam ENT Exam: Mucous Membranes Dry - Respiratory Exam Respiratory Exam: Clear to Auscultation Bilateral, NORMAL BREATHING PATTERN - Cardiovascular Exam Cardiovascular Exam: REGULAR RHYTHM, +S1, +S2 - GI/Abdominal Exam GI & Abdominal Exam: Normal Bowel Sounds, Soft. absent: Tenderness - Rectal Exam Rectal Exam: Deferred - Extremities Exam Extremities exam: Positive for: normal capillary refill, pedal pulses present. Negative for: calf tenderness - Back Exam Back exam: absent: CVA tenderness (L), CVA tenderness (R) - Neurological Exam Neurological exam: Alert, CN II-XII Intact, Oriented x3 - Psychiatric Exam Psychiatric exam: Normal Affect, Normal Mood - Skin Skin Exam: Dry, Warm Additional comments: some flushing noted on extremities Results - Vital Signs Recent Vital Signs: Last Vital Signs Temp 98.1 F 09/18/18 16:01 Pulse 96 H 09/18/18 16:34 Resp 16 09/18/18 16:01 BP 145/84 09/18/18 16:01 Pulse Ox 96 09/18/18 16:34 - Labs Result Diagrams: 09/18/18 16:33 09/18/18 16:33 Labs: Laboratory Results - last 24 hr 09/18/18 09/18/18 09/18/18 16:33 16:33 16:33 WBC 11.2 H RBC 4.24 Hgb 12.8 Hct 38.1 MCV 89.9 MCH 30.1 MCHC 33.5 RDW 16.3 H Plt Count 251 MPV 7.9 Neut % (Auto) 81.9 H Lymph % (Auto) 11.4 L Young % (Auto) 6.3 Eos % (Auto) 0.3 Baso % (Auto) 0.1 Neut # (Auto) 9.2 H Lymph # (Auto) 1.3 Young # (Auto) 0.7 Eos # (Auto) 0.0 Baso # (Auto) 0.0 PT 11.2 INR 1.0 APTT 24.4 L pO2 VBG pH VBG pCO2 VBG HCO3 VBG Total CO2 VBG O2 Sat (Calc) VBG Base Excess VBG Potassium Glucose Lactate FiO2 Sodium 143 Potassium 3.0 L Chloride 102 Carbon Dioxide 32 H Anion Gap 12 BUN 26 H Creatinine 0.9 Est GFR ( Amer) > 60 Est GFR (Non-Af Amer) > 60 POC Glucose (mg/dL) Random Glucose 142 H Serum Osmolality Calcium 9.4 Phosphorus 3.6 Magnesium 2.4 H Total Bilirubin 0.4 AST 35 ALT 66 H Alkaline Phosphatase 71 Troponin I < 0.0120 NT-Pro-B Natriuret Pep 75.9 Total Protein 6.9 Albumin 4.0 Globulin 2.9 Albumin/Globulin Ratio 1.4 Venous Blood Potassium Urine Color Urine Clarity Urine pH Ur Specific [place] Urine Protein Urine Glucose (UA) Urine Ketones Urine Blood Urine Nitrate Urine Bilirubin Urine Urobilinogen Ur Leukocyte Esterase Urine RBC (Auto) Urine Microscopic WBC Ur Squamous Epith Cells Urine Bacteria Blood Type Antibody Screen BBK History Checked 09/18/18 09/18/18 09/18/18 16:33 16:33 16:33 WBC RBC Hgb Hct MCV MCH MCHC RDW Plt Count MPV Neut % (Auto) Lymph % (Auto) Young % (Auto) Eos % (Auto) Baso % (Auto) Neut # (Auto) Lymph # (Auto) Young # (Auto) Eos # (Auto) Baso # (Auto) PT INR APTT pO2 VBG pH VBG pCO2 VBG HCO3 VBG Total CO2 VBG O2 Sat (Calc) VBG Base Excess VBG Potassium Glucose Lactate FiO2 Sodium Potassium Chloride Carbon Dioxide Anion Gap BUN Creatinine Est GFR ( Amer) Est GFR (Non-Af Amer) POC Glucose (mg/dL) Random Glucose Serum Osmolality 307 H Calcium Phosphorus Magnesium Total Bilirubin AST ALT Alkaline Phosphatase Troponin I NT-Pro-B Natriuret Pep Total Protein Albumin Globulin Albumin/Globulin Ratio Venous Blood Potassium Urine Color Yellow Urine Clarity Slighty-cloudy Urine pH 6.0 Ur Specific [place] 1.021 Urine Protein 30 Urine Glucose (UA) Neg Urine Ketones Negative Urine Blood Negative Urine Nitrate Negative Urine Bilirubin Negative Urine Urobilinogen 0.2-1.0 Ur Leukocyte Esterase Neg Urine RBC (Auto) 4 H Urine Microscopic WBC 2 Ur Squamous Epith Cells 3 Urine Bacteria Occ H Blood Type A POSITIVE Antibody Screen Negative BBK History Checked Patient has bt 09/18/18 09/18/18 16:40 16:53 WBC RBC Hgb Hct MCV MCH MCHC RDW Plt Count MPV Neut % (Auto) Lymph % (Auto) Young % (Auto) Eos % (Auto) Baso % (Auto) Neut # (Auto) Lymph # (Auto) Young # (Auto) Eos # (Auto) Baso # (Auto) PT INR APTT pO2 46 VBG pH 7.48 H VBG pCO2 46 VBG HCO3 31.9 VBG Total CO2 35.7 H VBG O2 Sat (Calc) 88.7 H VBG Base Excess 9.4 H VBG Potassium 2.9 L Glucose 144 H Lactate 1.5 FiO2 21.0 Sodium 141.0 Potassium Chloride 105.0 Carbon Dioxide Anion Gap BUN Creatinine Est GFR ( Amer) Est GFR (Non-Af Amer) POC Glucose (mg/dL) 176 H Random Glucose Serum Osmolality Calcium Phosphorus Magnesium Total Bilirubin AST ALT Alkaline Phosphatase Troponin I NT-Pro-B Natriuret Pep Total Protein Albumin Globulin Albumin/Globulin Ratio Venous Blood Potassium 2.9 L Urine Color Urine Clarity Urine pH Ur Specific [place] Urine Protein Urine Glucose (UA) Urine Ketones Urine Blood Urine Nitrate Urine Bilirubin Urine Urobilinogen Ur Leukocyte Esterase Urine RBC (Auto) Urine Microscopic WBC Ur Squamous Epith Cells Urine Bacteria Blood Type Antibody Screen BBK History Checked Assessment & Plan - Assessment and Plan (Free Text) Assessment: 38 F38 year old Female with PMH that includes recently diagnosed Keith's disease, left adrenal mass, hypertension and obesity who presents to [facility] ED for hypokalemia, fatigue, weakness, flushing Plan: -Regular diet -IV fluids -Pain control -Medical management as per primary team -Will continue to follow -Discussed with Dr. Hermes Andino PGY2 - Date & Time Date: 09/18/18 Time: 08:30
--- NOTE | 2018-09-18 20:04 | CP.PCM.HP ---
<Sultan Garett - Last Filed: 09/18/18 21:24> History of Present Illness - History of Present Illness History of Present Illness: CC: low serum potassium HPI: 38 year old Female with PMHx of recently diagnosed (~6 months ago) [place]'s disease 2/2 left adrenal mass, hypertension and obesity prented to [facility] ED for hypokalemia of 2.9 after she received a call from her PMD today. Patient reports generalized bodyaches especially lower extremities, fatigue and tired for last few months but worsened for 1 week. Patient reports she has adrenalectomy scheduled for 09/25/[address] Mirza. Patient recently seen by Dr. Jayde Morrison yesterday at outpatient cardiology for cardiac clearance and was cleared for surgery. Denies any chest pain, dyspnea, nausea, vomiting, abdominal pain or dizziness. ROS: All 12 systems reviwed and negative except as mentioned in HPI. 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, hypertension and obesity Surgical hx: Cholecystectomy in 2008, Tubal ligation in 2014 Social hx: Denies smoking cigarettes, drinking ETOH or using drugs Family hx: Father: DMII, Maternal aunt: unkown [place] Allergies: NKDA Medications: reviewed Present on Admission - Present on Admission Any Indicators Present on Admission: No Review of Systems - Review of Systems Review of Systems: All 12 systems reviewed and negative except as mentioned in HPI Past Patient History - Infectious Disease Hx of Infectious Diseases: None - Past Medical History & Family History Past Medical History?: Yes - Past Social History Smoking Status: Never Smoked - CARDIAC Hx Cardiac Disorders: Yes Hx Hypertension: Yes - PULMONARY Hx Respiratory Disorders: No - NEUROLOGICAL Hx Neurological Disorder: No - HEENT Hx HEENT Problems: No - RENAL Other/Comment: KEITH SYNDROME - ENDOCRINE/METABOLIC Other/Comment: KEITH SYNDROME - HEMATOLOGICAL/ONCOLOGICAL Hx Blood Disorders: No Hx Blood Transfusions: No - INTEGUMENTARY Hx Dermatological Problems: No - MUSCULOSKELETAL/RHEUMATOLOGICAL Hx Musculoskeletal Disorders: Yes Hx Back Pain: Yes Hx Falls: No - GASTROINTESTINAL Hx Gastrointestinal Disorders: No - GENITOURINARY/GYNECOLOGICAL Hx Genitourinary Disorders: No - PSYCHIATRIC Hx Psychophysiologic Disorder: No - SURGICAL HISTORY Hx Surgeries: Yes Hx Tubal Ligation: Yes (3 1/2 YEARS AGO) Other/Comment: GALLBLADDER SURGERY - ANESTHESIA Hx Anesthesia: Yes Hx Anesthesia Reactions: No Hx Malignant Hyperthermia: No Meds Allergies/Adverse Reactions: Allergies Allergy/AdvReac Type Severity Reaction Status Date / Time No Known Allergies Allergy Verified 09/18/18 16:01 Physical Exam - Constitutional Appears: No Acute Distress Additional comments: obese with chan facies - Head Exam Head Exam: NORMAL INSPECTION - Eye Exam Eye Exam: Normal appearance - ENT Exam ENT Exam: Mucous Membranes Moist - Neck Exam Neck exam: Positive for: Normal Inspection - Respiratory Exam Respiratory Exam: Clear to Auscultation Bilateral, NORMAL BREATHING PATTERN. absent: Rhonchi, Wheezes - Cardiovascular Exam Cardiovascular Exam: REGULAR RHYTHM, +S1, +S2 - GI/Abdominal Exam GI & Abdominal Exam: Normal Bowel Sounds, Soft. absent: Tenderness - Extremities Exam Extremities exam: Positive for: normal inspection. Negative for: calf tenderness - Neurological Exam Neurological exam: Alert, Oriented x3 - Psychiatric Exam Psychiatric exam: Normal Affect - Skin Skin Exam: Normal Color Results - Vital Signs Recent Vital Signs: Last Vital Signs Temp 98.1 F 09/18/18 16:01 Pulse 96 H 09/18/18 16:34 Resp 16 09/18/18 16:01 BP 145/84 09/18/18 16:01 Pulse Ox 96 09/18/18 16:34 - Labs Result Diagrams: 09/18/18 16:33 09/18/18 16:33 Labs: Laboratory Results - last 24 hr 09/18/18 09/18/18 09/18/18 16:33 16:33 16:33 WBC 11.2 H RBC 4.24 Hgb 12.8 Hct 38.1 MCV 89.9 MCH 30.1 MCHC 33.5 RDW 16.3 H Plt Count 251 MPV 7.9 Neut % (Auto) 81.9 H Lymph % (Auto) 11.4 L [place] % (Auto) 6.3 Eos % (Auto) 0.3 Baso % (Auto) 0.1 Neut # (Auto) 9.2 H Lymph # (Auto) 1.3 [place] # (Auto) 0.7 Eos # (Auto) 0.0 Baso # (Auto) 0.0 PT 11.2 INR 1.0 APTT 24.4 L pO2 VBG pH VBG pCO2 VBG HCO3 VBG Total CO2 VBG O2 Sat (Calc) VBG Base Excess VBG Potassium Glucose Lactate FiO2 Sodium 143 Potassium 3.0 L Chloride 102 Carbon Dioxide 32 H Anion Gap 12 BUN 26 H Creatinine 0.9 Est GFR ( Amer) > 60 Est GFR (Non-Af Amer) > 60 POC Glucose (mg/dL) Random Glucose 142 H Serum Osmolality Calcium 9.4 Phosphorus 3.6 Magnesium 2.4 H Total Bilirubin 0.4 AST 35 ALT 66 H Alkaline Phosphatase 71 Troponin I < 0.0120 NT-Pro-B Natriuret Pep 75.9 Total Protein 6.9 Albumin 4.0 Globulin 2.9 Albumin/Globulin Ratio 1.4 Venous Blood Potassium Urine Color Urine Clarity Urine pH Ur Specific [place] Urine Protein Urine Glucose (UA) Urine Ketones Urine Blood Urine Nitrate Urine Bilirubin Urine Urobilinogen Ur Leukocyte Esterase Urine RBC (Auto) Urine Microscopic WBC Ur Squamous Epith Cells Urine Bacteria Blood Type Antibody Screen BBK History Checked 09/18/18 09/18/18 09/18/18 16:33 16:33 16:33 WBC RBC Hgb Hct MCV MCH MCHC RDW Plt Count MPV Neut % (Auto) Lymph % (Auto) [place] % (Auto) Eos % (Auto) Baso % (Auto) Neut # (Auto) Lymph # (Auto) [place] # (Auto) Eos # (Auto) Baso # (Auto) PT INR APTT pO2 VBG pH VBG pCO2 VBG HCO3 VBG Total CO2 VBG O2 Sat (Calc) VBG Base Excess VBG Potassium Glucose Lactate FiO2 Sodium Potassium Chloride Carbon Dioxide Anion Gap BUN Creatinine Est GFR ( Amer) Est GFR (Non-Af Amer) POC Glucose (mg/dL) Random Glucose Serum Osmolality 307 H Calcium Phosphorus Magnesium Total Bilirubin AST ALT Alkaline Phosphatase Troponin I NT-Pro-B Natriuret Pep Total Protein Albumin Globulin Albumin/Globulin Ratio Venous Blood Potassium Urine Color Yellow Urine Clarity Slighty-cloudy Urine pH 6.0 Ur Specific [place] 1.021 Urine Protein 30 Urine Glucose (UA) Neg Urine Ketones Negative Urine Blood Negative Urine Nitrate Negative Urine Bilirubin Negative Urine Urobilinogen 0.2-1.0 Ur Leukocyte Esterase Neg Urine RBC (Auto) 4 H Urine Microscopic WBC 2 Ur Squamous Epith Cells 3 Urine Bacteria Occ H Blood Type A POSITIVE Antibody Screen Negative BBK History Checked Patient has bt 09/18/18 09/18/18 16:40 16:53 WBC RBC Hgb Hct MCV MCH MCHC RDW Plt Count MPV Neut % (Auto) Lymph % (Auto) [place] % (Auto) Eos % (Auto) Baso % (Auto) Neut # (Auto) Lymph # (Auto) [place] # (Auto) Eos # (Auto) Baso # (Auto) PT INR APTT pO2 46 VBG pH 7.48 H VBG pCO2 46 VBG HCO3 31.9 VBG Total CO2 35.7 H VBG O2 Sat (Calc) 88.7 H VBG Base Excess 9.4 H VBG Potassium 2.9 L Glucose 144 H Lactate 1.5 FiO2 21.0 Sodium 141.0 Potassium Chloride 105.0 Carbon Dioxide Anion Gap BUN Creatinine Est GFR ( Amer) Est GFR (Non-Af Amer) POC Glucose (mg/dL) 176 H Random Glucose Serum Osmolality Calcium Phosphorus Magnesium Total Bilirubin AST ALT Alkaline Phosphatase Troponin I NT-Pro-B Natriuret Pep Total Protein Albumin Globulin Albumin/Globulin Ratio Venous Blood Potassium 2.9 L Urine Color Urine Clarity Urine pH Ur Specific [place] Urine Protein Urine Glucose (UA) Urine Ketones Urine Blood Urine Nitrate Urine Bilirubin Urine Urobilinogen Ur Leukocyte Esterase Urine RBC (Auto) Urine Microscopic WBC Ur Squamous Epith Cells Urine Bacteria Blood Type Antibody Screen BBK History Checked Assessment & Plan - Assessment and Plan (Free Text) Assessment: 38 year old Female with PMHx of recently diagnosed (~6 months ago) [place]'s disease 2/2 left adrenal mass, hypertension and obesity prented to [facility] ED for hypokalemia of 2.9 after she received a call from her PMD today. Patient reports generalized bodyaches especially lower extremities, fatigue and tired for last few months but worsened for 1 week. In the ED, patient's potassium was 3.0 and ECG shows normal sinus rhythm @97 bpm. No T wave changes or U wave seen. Patient is admitted for hypokemia. Plan: Hypokalemia: -Potassium 3.0 - ECG shows normal sinus rhythm @97 bpm. No T wave changes or U wave seen -s/p 40 meq KCL in ED -F/U BMP in 6 hours -f/u AM labs [place]'s disease 2/2 left adrenal mass -consult general surgery, Dr. Mirza --f/u recs -Consult endocrinolgoist, Dr. Beckham -- f/u recs Secondary HTN -stable -c/w home medications (norvasc 5 mg, doxazosin 1 mg, lisinopril 10 mg and spironolactone 50 mg) DVT prophylaxis -Lovenox 40 mg sc daily Plan discussed with Dr. Doe Bajwa, pgy-[id number] <Levi Azar - Last Filed: 09/19/18 09:56> Results - Vital Signs Recent Vital Signs: Last Vital Signs Temp 98.2 F 09/19/18 08:14 Pulse 93 H 09/19/18 08:29 Resp 20 09/19/18 08:14 BP 145/104 H 09/19/18 08:29 Pulse Ox 98 09/19/18 08:14 - Labs Result Diagrams: 09/19/18 05:30 09/19/18 05:30 Labs: Laboratory Results - last 24 hr 09/18/18 09/18/18 09/18/18 16:33 16:33 16:33 WBC 11.2 H RBC 4.24 Hgb 12.8 Hct 38.1 MCV 89.9 MCH 30.1 MCHC 33.5 RDW 16.3 H Plt Count 251 MPV 7.9 Neut % (Auto) 81.9 H Lymph % (Auto) 11.4 L [place] % (Auto) 6.3 Eos % (Auto) 0.3 Baso % (Auto) 0.1 Neut # (Auto) 9.2 H Lymph # (Auto) 1.3 [place] # (Auto) 0.7 Eos # (Auto) 0.0 Baso # (Auto) 0.0 PT INR APTT pO2 VBG pH VBG pCO2 VBG HCO3 VBG Total CO2 VBG O2 Sat (Calc) VBG Base Excess VBG Potassium Glucose Lactate FiO2 Sodium 143 Potassium 3.0 L Chloride 102 Carbon Dioxide 32 H Anion Gap 12 BUN 26 H Creatinine 0.9 Est GFR ( Amer) > 60 Est GFR (Non-Af Amer) > 60 POC Glucose (mg/dL) Random Glucose 142 H Serum Osmolality Calcium 9.4 Phosphorus 3.6 Magnesium 2.4 H Total Bilirubin 0.4 AST 35 ALT 66 H Alkaline Phosphatase 71 Troponin I < 0.0120 NT-Pro-B Natriuret Pep 75.9 Total Protein 6.9 Albumin 4.0 Globulin 2.9 Albumin/Globulin Ratio 1.4 TSH 3rd Generation Plasma Cortisol PM 16.9 H Venous Blood Potassium Urine Color Urine Clarity Urine pH Ur Specific [place] Urine Protein Urine Glucose (UA) Urine Ketones Urine Blood Urine Nitrate Urine Bilirubin Urine Urobilinogen Ur Leukocyte Esterase Urine RBC (Auto) Urine Microscopic WBC Ur Squamous Epith Cells Urine Bacteria Blood Type Antibody Screen BBK History Checked 09/18/18 09/18/18 09/18/18 16:33 16:33 16:33 WBC RBC Hgb Hct MCV MCH MCHC RDW Plt Count MPV Neut % (Auto) Lymph % (Auto) [place] % (Auto) Eos % (Auto) Baso % (Auto) Neut # (Auto) Lymph # (Auto) [place] # (Auto) Eos # (Auto) Baso # (Auto) PT 11.2 INR 1.0 APTT 24.4 L pO2 VBG pH VBG pCO2 VBG HCO3 VBG Total CO2 VBG O2 Sat (Calc) VBG Base Excess VBG Potassium Glucose Lactate FiO2 Sodium Potassium Chloride Carbon Dioxide Anion Gap BUN Creatinine Est GFR ( Amer) Est GFR (Non-Af Amer) POC Glucose (mg/dL) Random Glucose Serum Osmolality Calcium Phosphorus Magnesium Total Bilirubin AST ALT Alkaline Phosphatase Troponin I NT-Pro-B Natriuret Pep Total Protein Albumin Globulin Albumin/Globulin Ratio TSH 3rd Generation Plasma Cortisol PM Venous Blood Potassium Urine Color Yellow Urine Clarity Slighty-cloudy Urine pH 6.0 Ur Specific [place] 1.021 Urine Protein 30 Urine Glucose (UA) Neg Urine Ketones Negative Urine Blood Negative Urine Nitrate Negative Urine Bilirubin Negative Urine Urobilinogen 0.2-1.0 Ur Leukocyte Esterase Neg Urine RBC (Auto) 4 H Urine Microscopic WBC 2 Ur Squamous Epith Cells 3 Urine Bacteria Occ H Blood Type A POSITIVE Antibody Screen Negative BBK History Checked Patient has bt 09/18/18 09/18/18 09/18/18 16:33 16:40 16:53 WBC RBC Hgb Hct MCV MCH MCHC RDW Plt Count MPV Neut % (Auto) Lymph % (Auto) [place] % (Auto) Eos % (Auto) Baso % (Auto) Neut # (Auto) Lymph # (Auto) [place] # (Auto) Eos # (Auto) Baso # (Auto) PT INR APTT pO2 46 VBG pH 7.48 H VBG pCO2 46 VBG HCO3 31.9 VBG Total CO2 35.7 H VBG O2 Sat (Calc) 88.7 H VBG Base Excess 9.4 H VBG Potassium 2.9 L Glucose 144 H Lactate 1.5 FiO2 21.0 Sodium 141.0 Potassium Chloride 105.0 Carbon Dioxide Anion Gap BUN Creatinine Est GFR ( Amer) Est GFR (Non-Af Amer) POC Glucose (mg/dL) 176 H Random Glucose Serum Osmolality 307 H Calcium Phosphorus Magnesium Total Bilirubin AST ALT Alkaline Phosphatase Troponin I NT-Pro-B Natriuret Pep Total Protein Albumin Globulin Albumin/Globulin Ratio TSH 3rd Generation Plasma Cortisol PM Venous Blood Potassium 2.9 L Urine Color Urine Clarity Urine pH Ur Specific [place] Urine Protein Urine Glucose (UA) Urine Ketones Urine Blood Urine Nitrate Urine Bilirubin Urine Urobilinogen Ur Leukocyte Esterase Urine RBC (Auto) Urine Microscopic WBC Ur Squamous Epith Cells Urine Bacteria Blood Type Antibody Screen BBK History Checked 09/18/18 09/18/18 09/19/18 22:49 22:53 05:22 WBC RBC Hgb Hct MCV MCH MCHC RDW Plt Count MPV Neut % (Auto) Lymph % (Auto) [place] % (Auto) Eos % (Auto) Baso % (Auto) Neut # (Auto) Lymph # (Auto) [place] # (Auto) Eos # (Auto) Baso # (Auto) PT INR APTT pO2 VBG pH VBG pCO2 VBG HCO3 VBG Total CO2 VBG O2 Sat (Calc) VBG Base Excess VBG Potassium Glucose Lactate FiO2 Sodium 144 Potassium 3.7 Chloride 105 Carbon Dioxide 31 H Anion Gap 12 BUN 24 H Creatinine 0.8 Est GFR ( Amer) > 60 Est GFR (Non-Af Amer) > 60 POC Glucose (mg/dL) 211 H 140 H Random Glucose 197 H Serum Osmolality Calcium 9.0 Phosphorus Magnesium Total Bilirubin AST ALT Alkaline Phosphatase Troponin I NT-Pro-B Natriuret Pep Total Protein Albumin Globulin Albumin/Globulin Ratio TSH 3rd Generation Plasma Cortisol PM Venous Blood Potassium Urine Color Urine Clarity Urine pH Ur Specific [place] Urine Protein Urine Glucose (UA) Urine Ketones Urine Blood Urine Nitrate Urine Bilirubin Urine Urobilinogen Ur Leukocyte Esterase Urine RBC (Auto) Urine Microscopic WBC Ur Squamous Epith Cells Urine Bacteria Blood Type Antibody Screen BBK History Checked 09/19/18 09/19/18 05:30 05:30 WBC 8.4 RBC 3.92 Hgb 12.1 Hct 35.6 MCV 90.9 MCH 30.9 MCHC 34.0 RDW 16.8 H Plt Count 239 MPV 8.0 Neut % (Auto) 78.8 H Lymph % (Auto) 13.8 L [place] % (Auto) 6.9 Eos % (Auto) 0.3 Baso % (Auto) 0.2 Neut # (Auto) 6.6 Lymph # (Auto) 1.2 [place] # (Auto) 0.6 Eos # (Auto) 0.0 Baso # (Auto) 0.0 PT INR APTT pO2 VBG pH VBG pCO2 VBG HCO3 VBG Total CO2 VBG O2 Sat (Calc) VBG Base Excess VBG Potassium Glucose Lactate FiO2 Sodium 141 Potassium 3.5 L Chloride 105 Carbon Dioxide 29 Anion Gap 11 BUN 19 H Creatinine 0.7 Est GFR ( Amer) > 60 Est GFR (Non-Af Amer) > 60 POC Glucose (mg/dL) Random Glucose 151 H Serum Osmolality Calcium 9.0 Phosphorus Magnesium 2.6 H Total Bilirubin 0.4 AST 24 ALT 59 H Alkaline Phosphatase 63 Troponin I NT-Pro-B Natriuret Pep Total Protein 6.4 Albumin 3.6 Globulin 2.8 Albumin/Globulin Ratio 1.3 TSH 3rd Generation 0.74 Plasma Cortisol PM Venous Blood Potassium Urine Color Urine Clarity Urine pH Ur Specific [place] Urine Protein Urine Glucose (UA) Urine Ketones Urine Blood Urine Nitrate Urine Bilirubin Urine Urobilinogen Ur Leukocyte Esterase Urine RBC (Auto) Urine Microscopic WBC Ur Squamous Epith Cells Urine Bacteria Blood Type Antibody Screen BBK History Checked Attending/Attestation - Attestation I have personally seen and examined this patient.: Yes I have fully participated in the care of the patient.: Yes I have reviewed all pertinent clinical information: Yes Notes (Text): 09/19/18 09:54 Patient seen and examined. Case discussed and agreed with assessment and plan. 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
[2018-09-18 22:46] VITALS: BMI 34.6
[2018-09-18 23:22] LABS: BLOOD UREA NITROGEN 24 mg/dl (7-17); GFR NON-AFRICAN AMERICAN > 60
[2018-09-19 05:14] VITALS: RESP 20
[2018-09-19 06:00] LABS: BASO % 0.2 % (0.0-2.0); EOS % 0.3 % (0.0-4.0); HEMOGLOBIN 12.1 g/dL (12.0-16.0); LYMPH # 1.2 K/uL (1.0-4.3); LYMPH % 13.8 % (20.0-40.0); MEAN CELL VOLUME 90.9 fl (81.0-99.0); MEAN CORPUSCULAR HEMOGLOBIN 30.9 pg (27.0-31.0); MONO # 0.6 K/uL (0.0-0.8); MONO % 6.9 % (0.0-10.0); NEUT # 6.6 K/uL (1.8-7.0); NEUT % 78.8 % (50.0-75.0); NRBC % 0.2 % (0.0-0.0); RBC 3.92 Mil/uL (3.80-5.20); RED CELL DISTRIBUTION WIDTH 16.8 % (11.5-14.5); WHITE BLOOD COUNT 8.4 K/uL (4.8-10.8)
[2018-09-19 06:21] LABS: ALB/GLOB RATIO 1.3 (1.0-2.1); ALBUMIN 3.6 g/dL (3.5-5.0); ALT/SGPT 59 U/L (9-52); AST/SGOT 24 U/L (14-36); BLOOD UREA NITROGEN 19 mg/dl (7-17); GFR NON-AFRICAN AMERICAN > 60
[2018-09-19] MEDS ORDERED: Potassium Chloride 20 mEq ER Tab PO ONE ×2 (06:40→10:53)
[2018-09-19] MEDS ORDERED: Omega-3-Acid Ethyl Esters 1 GM Cap PO SCH (09:00)
[2018-09-19] MEDS ORDERED: Enoxaparin 40 mg Syringe SC SCH (09:00)
[2018-09-19] MEDS ORDERED: Pantoprazole 40 mg EC Tab PO SCH (09:00)
--- NOTE | 2018-09-19 09:07 | CARD ---
APPROVED REPORT Date of service: 09/18/2018 EKG Measurement Heart [id number] <Conclusion> Normal sinus rhythm Normal ECG
--- NOTE | 2018-09-19 10:23 | CP.PCM.PN ---
Subjective - Date & Time of Evaluation Date of Evaluation: 09/19/18 Time of Evaluation: 07:15 - Subjective Subjective: Patient seen and examined this am at bedisde. State she is feeling well and denies VALDIVIA, f/c, n/v, abdominal pain, CP and SOB. Objective - Vital Signs/Intake and Output Vital Signs (last 24 hours): Temp Pulse Resp BP Pulse Ox 98.2 F 93 H 20 145/104 H 98 09/19/18 08:14 09/19/18 08:29 09/19/18 08:14 09/19/18 08:29 09/19/18 08:14 - Medications Medications: Current Medications Amlodipine Besylate (Norvasc) 10 mg PO DAILY [facility] Last Admin: 09/19/18 08:29 Dose: 10 mg Doxazosin Mesylate (Cardura) 1 mg PO HS [facility] Enoxaparin Sodium (Lovenox) 40 mg SC DAILY [facility]; Protocol Last Admin: 09/19/18 08:30 Dose: 40 mg Lisinopril (Zestril) 20 mg PO DAILY [facility] Last Admin: 09/19/18 08:28 Dose: 20 mg [id number] Ethyl Esters (Lovaza) 1 gm PO DAILY [facility] Last Admin: 09/19/18 08:29 Dose: 1 gm Pantoprazole Sodium (Protonix Ec Tab) 40 mg PO DAILY [facility] Last Admin: 09/19/18 08:28 Dose: 40 mg Spironolactone (Aldactone) 50 mg PO HS [facility] Last Admin: 09/19/18 01:33 Dose: Not Given - Labs Labs: 09/19/18 05:30 09/19/18 05:30 PT 11.2 Seconds (9.8-13.1) 09/18/18 16:33 INR 1.0 09/18/18 16:33 APTT 24.4 Seconds (25.6-37.1) L 09/18/18 16:33 - Constitutional Appears: Well, Non-toxic, No Acute Distress, Other (cushingoid, chan facies) - Head Exam Head Exam: ATRAUMATIC Additional comments: chan facies - Eye Exam Eye Exam: EOMI - Respiratory Exam Respiratory Exam: NORMAL BREATHING PATTERN - Cardiovascular Exam Cardiovascular Exam: REGULAR RHYTHM - GI/Abdominal Exam GI & Abdominal Exam: Soft. absent: Tenderness, Rebound - Neurological Exam Neurological Exam: Alert, Awake, Oriented x3 - Psychiatric Exam Psychiatric exam: Normal Affect, Normal Mood - Skin Skin Exam: Dry, Intact, Normal Color, Warm Assessment and Plan - Assessment and Plan (Free Text) Assessment: 38 year old Female with PMH that includes recently diagnosed Keith's disease, left adrenal mass, hypertension and obesity who presents to [facility] ED for hypoka lemia, fatigue, weakness, flushing Plan: -Regular diet -IV fluids -Pain control -Medical management as per primary team -Will continue to follow -further recs per Dr. Hermes Fernandes, PGY 1
[2018-09-19 12:14] VITALS: BP 125/85; PULSE 100; TEMP 97.6; O2SAT 96
--- NOTE | 2018-09-19 12:22 | CP.PCM.DIS ---
<Khadijah Lucy Sarmiento - Last Filed: 09/19/18 13:10> Provider - Provider Date of Admission: 09/18/18 17:34 Attending physician: Levi Azar MD Consults: 09/18/18 18:10 Endocrinology Consult Stat Comment: Consulting Provider: Haleigh Beckham Consulting Physician: Haleigh Beckham Reason for Consult: [place] syndrome, Left Adrenal Mass General Surgery Consult Stat Comment: Consulting Provider: Janet Mirza Consulting Physician: Janet Mirza Reason for Consult: left adrenal mass Time Spent in preparation of Discharge (in minutes): 33 Diagnosis - Discharge Diagnosis (1) Hypokalemia Status: Acute Priority: High (2) Elevated blood pressure reading Status: Chronic Priority: Medium (3) [place] syndrome Status: Chronic Priority: Medium (4) Left adrenal mass Status: Chronic Priority: Medium Hospital Course - Lab Results Lab Results: Most Recent Lab Values WBC 8.4 K/uL (4.8-10.8) 09/19/18 05:30 RBC 3.92 Mil/uL (3.80-5.20) 09/19/18 05:30 Hgb 12.1 g/dL (12.0-16.0) 09/19/18 05:30 Hct 35.6 % (34.0-47.0) 09/19/18 05:30 MCV 90.9 fl (81.0-99.0) 09/19/18 05:30 MCH 30.9 pg (27.0-31.0) 09/19/18 05:30 MCHC 34.0 g/dL (33.0-37.0) 09/19/18 05:30 RDW 16.8 % (11.5-14.5) H 09/19/18 05:30 Plt Count 239 K/uL (130-400) 09/19/18 05:30 MPV 8.0 fl (7.2-11.7) 09/19/18 05:30 Neut % (Auto) 78.8 % (50.0-75.0) H 09/19/18 05:30 Lymph % (Auto) 13.8 % (20.0-40.0) L 09/19/18 05:30 [place] % (Auto) 6.9 % (0.0-10.0) 09/19/18 05:30 Eos % (Auto) 0.3 % (0.0-4.0) 09/19/18 05:30 Baso % (Auto) 0.2 % (0.0-2.0) 09/19/18 05:30 Neut # (Auto) 6.6 K/uL (1.8-7.0) 09/19/18 05:30 Lymph # (Auto) 1.2 K/uL (1.0-4.3) 09/19/18 05:30 [place] # (Auto) 0.6 K/uL (0.0-0.8) 09/19/18 05:30 Eos # (Auto) 0.0 K/uL (0.0-0.7) 09/19/18 05:30 Baso # (Auto) 0.0 K/uL (0.0-0.2) 09/19/18 05:30 PT 11.2 Seconds (9.8-13.1) 09/18/18 16:33 INR 1.0 09/18/18 16:33 APTT 24.4 Seconds (25.6-37.1) L 09/18/18 16:33 pO2 46 mm/Hg (30-55) 09/18/18 16:40 VBG pH 7.48 (7.32-7.43) H 09/18/18 16:40 VBG pCO2 46 mmHg (40-60) 09/18/18 16:40 VBG HCO3 31.9 mmol/L 09/18/18 16:40 VBG Total CO2 35.7 mmol/L (22-28) H 09/18/18 16:40 VBG O2 Sat (Calc) 88.7 % (40-65) H 09/18/18 16:40 VBG Base Excess 9.4 mmol/L (0.0-2.0) H 09/18/18 16:40 VBG Potassium 2.9 mmol/L (3.6-5.2) L 09/18/18 16:40 Sodium 141.0 mmol/L (132-148) 09/18/18 16:40 Chloride 105.0 mmol/L (98-107) 09/18/18 16:40 Glucose 144 mg/dL (65-105) H 09/18/18 16:40 Lactate 1.5 mmol/L (0.7-2.1) 09/18/18 16:40 FiO2 21.0 % 09/18/18 16:40 Sodium 141 mmol/l (132-148) 09/19/18 05:30 Potassium 3.5 MMOL/L (3.6-5.0) L 09/19/18 05:30 Chloride 105 mmol/L (98-107) 09/19/18 05:30 Carbon Dioxide 29 mmol/L (22-30) 09/19/18 05:30 Anion Gap 11 (10-20) 09/19/18 05:30 BUN 19 mg/dl (7-17) H 09/19/18 05:30 Creatinine 0.7 mg/dl (0.7-1.2) 09/19/18 05:30 Est GFR ( Amer) > 60 09/19/18 05:30 Est GFR (Non-Af Amer) > 60 09/19/18 05:30 POC Glucose (mg/dL) 203 mg/dL (65-110) H 09/19/18 11:12 Random Glucose 151 mg/dL (65-105) H 09/19/18 05:30 Serum Osmolality 307 mosm/kg (272-300) H 09/18/18 16:33 Calcium 9.0 mg/dL (8.4-10.2) 09/19/18 05:30 Phosphorus 3.6 mg/dl (2.5-4.5) 09/18/18 16:33 Magnesium 2.6 MG/DL (1.6-2.3) H 09/19/18 05:30 Total Bilirubin 0.4 mg/dl (0.2-1.3) 09/19/18 05:30 AST 24 U/L (14-36) 09/19/18 05:30 ALT 59 U/L (9-52) H 09/19/18 05:30 Alkaline Phosphatase 63 U/L (38-126) 09/19/18 05:30 Troponin I < 0.0120 ng/mL (0.00-0.120) 09/18/18 16:33 NT-Pro-B Natriuret Pep 75.9 pg/ml (0-450) 09/18/18 16:33 Total Protein 6.4 G/DL (6.3-8.2) 09/19/18 05:30 Albumin 3.6 g/dL (3.5-5.0) 09/19/18 05:30 Globulin 2.8 gm/dL (2.2-3.9) 09/19/18 05:30 Albumin/Globulin Ratio 1.3 (1.0-2.1) 09/19/18 05:30 TSH 3rd Generation 0.74 mIU/ML (0.46-4.68) 09/19/18 05:30 Plasma Cortisol PM 16.9 ug/dL (1.7-14.1) H 09/18/18 16:33 Venous Blood Potassium 2.9 mmol/L (3.6-5.2) L 09/18/18 16:40 Urine Color Yellow (YELLOW) 09/18/18 16:33 Urine Clarity Slighty-cloudy (Clear) 09/18/18 16:33 Urine pH 6.0 (5.0-8.0) 09/18/18 16:33 Ur Specific [place] 1.021 (1.003-1.030) 09/18/18 16:33 Urine Protein 30 mg/dL (NEGATIVE) 09/18/18 16:33 Urine Glucose (UA) Neg mg/dL (NEGATIVE) 09/18/18 16:33 Urine Ketones Negative mg/dL (NEGATIVE) 09/18/18 16:33 Urine Blood Negative (NEGATIVE) 09/18/18 16:33 Urine Nitrate Negative (NEGATIVE) 09/18/18 16:33 Urine Bilirubin Negative (NEGATIVE) 09/18/18 16:33 Urine Urobilinogen 0.2-1.0 mg/dL (0.2-1.0) 09/18/18 16:33 Ur Leukocyte Esterase Neg Igor/uL (Negative) 09/18/18 16:33 Urine RBC (Auto) 4 /hpf (0-3) H 09/18/18 16:33 Urine Microscopic WBC 2 /hpf (0-5) 09/18/18 16:33 Ur Squamous Epith Cells 3 /hpf (0-5) 09/18/18 16:33 Urine Bacteria Occ (<OCC) H 09/18/18 16:33 Blood Type A POSITIVE 09/18/18 16:33 Antibody Screen Negative 09/18/18 16:33 BBK History Checked Patient has bt 09/18/18 16:33 - Hospital Course Hospital Course: 38 Y/O female with PMH of [place]'s disease due to left adrenal mass diagnosed 6 months ago, obesity and HTN sent to [facility] ED by PMD for hypokalemia of 2.9, patient also reported c/o fatigue, LE weakness and cramps which had worsened in the last 3 to 4 days. In the ED patient's chemistry confirmed hypokalemia K 3.0 with Mag normal 2.4, Na 143, EKG NSR w/ no ST segment T wave abnormalities noted. Patient was admitted to [facility] due to symptomatic hypokalemia. During Hptal course Potassium was replaced with rounds of oral doses and monitoring of blood level with BMP, improving K to 3.7. Patient today endorses feeling better, denies weakness of LE or cramps. Patient is for DC home today with instructions to f/u as outpatient with PMD, she is hemodinamically stable, VS stable, denies chest pain, SOB, abdominal pain, N/V/D, fever or dizziness. Of note patient reports she has adrenalectomy surgery scheduled for 09/25/[address] Mirza, also she was evaluated by surgery during this stay and endocrinology Dr Beckham. Patient will be discharge on KCL 10 meq PO QD. F/u OP with PMD. Patient is stable, Potassium 3.5 at discharge. Discharge Exam - Head Exam Head Exam: ATRAUMATIC, NORMOCEPHALIC - Eye Exam Eye Exam: EOMI - ENT Exam ENT Exam: Mucous Membranes Moist - Respiratory Exam Respiratory Exam: Clear to PA & Lateral - Cardiovascular Exam Cardiovascular Exam: REGULAR RHYTHM, +S1, +S2 - GI/Abdominal Exam GI & Abdominal Exam: Soft. absent: Tenderness - Neurological Exam Neurological exam: Alert, Oriented x3 - Psychiatric Exam Psychiatric exam: Normal Affect - Skin Skin Exam: Normal Color, Warm Discharge Plan - Discharge Medications Prescriptions: Potassium Chloride [Klor-Con 10] 10 meq PO DAILY #10 ter - Follow Up Plan Condition: FAIR Disposition: HOME/ ROUTINE Instructions: Hypokalemia (DC) Additional Instructions: follow up appt in the clinic in 1 week ED precautions given Referrals: [facility] [place] [Outside] <Levi Azar - Last Filed: 09/19/18 13:33> Provider - Provider Date of Admission: 09/18/18 17:34 Attending physician: Levi Azar MD Consults: 09/18/18 18:10 Endocrinology Consult Stat Comment: Consulting Provider: Haleigh Beckham Consulting Physician: Haleigh Beckham Reason for Consult: [place] syndrome, Left Adrenal Mass General Surgery Consult Stat Comment: Consulting Provider: Janet Mirza Consulting Physician: Janet Mirza Reason for Consult: left adrenal mass Hospital Course - Lab Results Lab Results: Most Recent Lab Values WBC 8.4 K/uL (4.8-10.8) 09/19/18 05:30 RBC 3.92 Mil/uL (3.80-5.20) 09/19/18 05:30 Hgb 12.1 g/dL (12.0-16.0) 09/19/18 05:30 Hct 35.6 % (34.0-47.0) 09/19/18 05:30 MCV 90.9 fl (81.0-99.0) 09/19/18 05:30 MCH 30.9 pg (27.0-31.0) 09/19/18 05:30 MCHC 34.0 g/dL (33.0-37.0) 09/19/18 05:30 RDW 16.8 % (11.5-14.5) H 09/19/18 05:30 Plt Count 239 K/uL (130-400) 09/19/18 05:30 MPV 8.0 fl (7.2-11.7) 09/19/18 05:30 Neut % (Auto) 78.8 % (50.0-75.0) H 09/19/18 05:30 Lymph % (Auto) 13.8 % (20.0-40.0) L 09/19/18 05:30 [place] % (Auto) 6.9 % (0.0-10.0) 09/19/18 05:30 Eos % (Auto) 0.3 % (0.0-4.0) 09/19/18 05:30 Baso % (Auto) 0.2 % (0.0-2.0) 09/19/18 05:30 Neut # (Auto) 6.6 K/uL (1.8-7.0) 09/19/18 05:30 Lymph # (Auto) 1.2 K/uL (1.0-4.3) 09/19/18 05:30 [place] # (Auto) 0.6 K/uL (0.0-0.8) 09/19/18 05:30 Eos # (Auto) 0.0 K/uL (0.0-0.7) 09/19/18 05:30 Baso # (Auto) 0.0 K/uL (0.0-0.2) 09/19/18 05:30 PT 11.2 Seconds (9.8-13.1) 09/18/18 16:33 INR 1.0 09/18/18 16:33 APTT 24.4 Seconds (25.6-37.1) L 09/18/18 16:33 pO2 46 mm/Hg (30-55) 09/18/18 16:40 VBG pH 7.48 (7.32-7.43) H 09/18/18 16:40 VBG pCO2 46 mmHg (40-60) 09/18/18 16:40 VBG HCO3 31.9 mmol/L 09/18/18 16:40 VBG Total CO2 35.7 mmol/L (22-28) H 09/18/18 16:40 VBG O2 Sat (Calc) 88.7 % (40-65) H 09/18/18 16:40 VBG Base Excess 9.4 mmol/L (0.0-2.0) H 09/18/18 16:40 VBG Potassium 2.9 mmol/L (3.6-5.2) L 09/18/18 16:40 Sodium 141.0 mmol/L (132-148) 09/18/18 16:40 Chloride 105.0 mmol/L (98-107) 09/18/18 16:40 Glucose 144 mg/dL (65-105) H 09/18/18 16:40 Lactate 1.5 mmol/L (0.7-2.1) 09/18/18 16:40 FiO2 21.0 % 09/18/18 16:40 Sodium 141 mmol/l (132-148) 09/19/18 05:30 Potassium 3.5 MMOL/L (3.6-5.0) L 09/19/18 05:30 Chloride 105 mmol/L (98-107) 09/19/18 05:30 Carbon Dioxide 29 mmol/L (22-30) 09/19/18 05:30 Anion Gap 11 (10-20) 09/19/18 05:30 BUN 19 mg/dl (7-17) H 09/19/18 05:30 Creatinine 0.7 mg/dl (0.7-1.2) 09/19/18 05:30 Est GFR ( Amer) > 60 09/19/18 05:30 Est GFR (Non-Af Amer) > 60 09/19/18 05:30 POC Glucose (mg/dL) 203 mg/dL (65-110) H 09/19/18 11:12 Random Glucose 151 mg/dL (65-105) H 09/19/18 05:30 Serum Osmolality 307 mosm/kg (272-300) H 09/18/18 16:33 Calcium 9.0 mg/dL (8.4-10.2) 09/19/18 05:30 Phosphorus 3.6 mg/dl (2.5-4.5) 09/18/18 16:33 Magnesium 2.6 MG/DL (1.6-2.3) H 09/19/18 05:30 Total Bilirubin 0.4 mg/dl (0.2-1.3) 09/19/18 05:30 AST 24 U/L (14-36) 09/19/18 05:30 ALT 59 U/L (9-52) H 09/19/18 05:30 Alkaline Phosphatase 63 U/L (38-126) 09/19/18 05:30 Troponin I < 0.0120 ng/mL (0.00-0.120) 09/18/18 16:33 NT-Pro-B Natriuret Pep 75.9 pg/ml (0-450) 09/18/18 16:33 Total Protein 6.4 G/DL (6.3-8.2) 09/19/18 05:30 Albumin 3.6 g/dL (3.5-5.0) 09/19/18 05:30 Globulin 2.8 gm/dL (2.2-3.9) 09/19/18 05:30 Albumin/Globulin Ratio 1.3 (1.0-2.1) 09/19/18 05:30 TSH 3rd Generation 0.74 mIU/ML (0.46-4.68) 09/19/18 05:30 Plasma Cortisol PM 16.9 ug/dL (1.7-14.1) H 09/18/18 16:33 Venous Blood Potassium 2.9 mmol/L (3.6-5.2) L 09/18/18 16:40 Urine Color Yellow (YELLOW) 09/18/18 16:33 Urine Clarity Slighty-cloudy (Clear) 09/18/18 16:33 Urine pH 6.0 (5.0-8.0) 09/18/18 16:33 Ur Specific [place] 1.021 (1.003-1.030) 09/18/18 16:33 Urine Protein 30 mg/dL (NEGATIVE) 09/18/18 16:33 Urine Glucose (UA) Neg mg/dL (NEGATIVE) 09/18/18 16:33 Urine Ketones Negative mg/dL (NEGATIVE) 09/18/18 16:33 Urine Blood Negative (NEGATIVE) 09/18/18 16:33 Urine Nitrate Negative (NEGATIVE) 09/18/18 16:33 Urine Bilirubin Negative (NEGATIVE) 09/18/18 16:33 Urine Urobilinogen 0.2-1.0 mg/dL (0.2-1.0) 09/18/18 16:33 Ur Leukocyte Esterase Neg Igor/uL (Negative) 09/18/18 16:33 Urine RBC (Auto) 4 /hpf (0-3) H 09/18/18 16:33 Urine Microscopic WBC 2 /hpf (0-5) 09/18/18 16:33 Ur Squamous Epith Cells 3 /hpf (0-5) 09/18/18 16:33 Urine Bacteria Occ (<OCC) H 09/18/18 16:33 Blood Type A POSITIVE 09/18/18 16:33 Antibody Screen Negative 09/18/18 16:33 BBK History Checked Patient has bt 09/18/18 16:33 Attending/Attestation - Attestation I have personally seen and examined this patient.: Yes I have fully participated in the care of the patient.: Yes I have reviewed all pertinent clinical information, including history, physical exam and plan: Yes Notes (Text): 09/19/18 13:32 Patient seen and examined. Casr discussed and agreed with assessment. Patient discharged in stable condition. She will follow up with Dr Mirza for surgical removal of left adrenal mass on September 25.
--- NOTE | 2018-09-20 02:22 | CON ---
DATE: 09/19/2018 LOCATION: In room 403. HISTORY OF PRESENT ILLNESS: This is a 38-year-old female with recent diagnosis of [place] syndrome with an underlying adrenal adenoma and is now being referred for endocrine evaluation and management. PAST MEDICAL HISTORY: As mentioned above, the patient has been diagnosed two months ago with a left adrenal adenoma and MRI showed a 3.0 x 2.3 cm left adrenal gland mass as noted and has also a history of refractory hypertension with underlying obesity as noted. PAST SURGICAL HISTORY: She had a tubal ligation in 2014 and a cholecystectomy in 2008. FAMILY HISTORY: Positive for hypertension and heart disease. Positive also for diabetes in the paternal side of her family. SOCIAL HISTORY: The patient has a supportive family. No known substance use. REVIEW OF SYSTEMS: Recent generalized body weakness with episodic bouts of dizziness and lightheadedness. No chest pains or palpitations or PND. Her oral intake has been variable with occasional nausea and dyspepsia. No recent alterations of bowel and urinary patterns. PHYSICAL EXAMINATION: GENERAL: This is an obese female, in no apparent distress. VITAL SIGNS: Blood pressure of 150/90, pulse of 100 beats per minute and regular, temperature 98, respirations 20, height 5 feet 4 inches, and weight is 201 pounds. HEENT: Head normocephalic. Eyes anicteric with pink conjunctivae. Funduscopy not possible at this time. Ears, nose and throat otherwise normal. NECK: Supple. Thyroid gland is normal size. No carotid bruits or any cervical adenopathy. CARDIOPULMONARY: Some adynamic precordium. S1 and S2. Rapid and regular. LUNGS: Clear to auscultation. ABDOMEN: Obese and soft with positive bowel sounds. EXTREMITIES: No peripheral edema. Pulses are +2 bilaterally. LABORATORY DATA: Her chemistry showed a BUN of 19, sodium 141, potassium 3.5, chloride 105, CO2 of 29, glucose 151, and creatinine 0.7. Her A1c is 5.9%. Her initial potassium was reported as 3. ASSESSMENT: This is a 38-year-old female with a previous known diagnosis of [place] syndrome related to an underlying left adrenal adenoma with concomitant elevation of cortisol level done randomly in the evening with a value of 16.9 mcg/dL. She is scheduled actually for adrenalectomy on 09/25/2018 as noted and will be done by Dr. Janet Mirza. However, with a persistent hypokalemia, we also have to make certain that we are not missing an aldosterone-secreting adenoma with the same adrenal gland as noted. However, the histopathology will tell us the exact nature of this adrenal adenoma postoperatively. PLAN OF MANAGEMENT: We will obtain a fasting serum cortisol level to be obtained today with an ACTH level as ordered. We will also obtain baseline thyroid studies and a hemoglobin A1c as ordered. We will obtain serial chemistries and supplement accordingly as needed. We will also do a 24-hour urinary free cortisol if the patient will stay another night in this hospital. We will follow. We will also consider a plasma aldosterone and plasma renin activity if not already done in the previous admission. Haleigh Beckham MD
[2018-09-20] MEDS ORDERED: Potassium Chloride 10 mEq ER Tab PO SCH (09:00)
== END 2018-09-19 13:30 | disposition home or self-care (01) ==
LOC: H.ER 15:37 → H.ERHOLD 17:34 → H.TEL 23:10
DX: E87.6 Hypokalemia (principal); E24.9 Cushing's syndrome, unspecified; E66.9 Obesity, unspecified; Z68.34 Body mass index [BMI] 34.0-34.9, adult; R03.0 Elevated blood-pressure reading, without diagnosis of hypertension
CPT/HCPCS: 36415; 71045; 80053; 81003; 81025; 82533; 82803; 82948; 83036; 83735; 83880; 83930; 84100; 84443; 84484; 85025; 85610; 85730; 86850; 86900; 87086; 93005; 96372; 99285; G0378; J1650

== ENCOUNTER 2018-09-25 11:16 | Inpatient (IN) | payer MEDICAID, SELFPAY ==
[2018-09-25] MEDS ORDERED: Bupivacaine HCl 0.5% PF (30 ml) Inj ONE (11:39)
[2018-09-25] MEDS ORDERED: Lidocaine 1% Inj (20ml) ONE (11:40)
[2018-09-25] MEDS ORDERED: Propofol 10 mg/ml Inj (20 ML) ONE (12:17)
[2018-09-25] MEDS ORDERED: Rocuronium 10 mg/ml (5 ml) ONE ×2 (12:18→12:20)
[2018-09-25] MEDS ORDERED: Midazolam 2 MG/2 ML VIAL ONE (12:18)
[2018-09-25] MEDS ORDERED: Lidocaine 4% (Laryng-O-Jet) Kit MM ONE (12:19)
[2018-09-25] MEDS ORDERED: Phenylephrine 10 mg/ml Inj ONE (12:23)
[2018-09-25] MEDS ORDERED: Succinylcholine Chloride 20 mg/ml Syr (5 ml) IV ONE (12:27)
[2018-09-25] MEDS ORDERED: Lactated Ringer's 1,000 ML IV ONE ×2 (13:15→14:50)
[2018-09-25] MEDS ORDERED: Sodium Chloride 0.9% 1,000 ML IV ONE (13:16)
[2018-09-25] MEDS ORDERED: Desflurane Inhalation Anesthetic Liq (240 ml) ONE (14:23)
[2018-09-25] MEDS ORDERED: Bupivacaine 0.25%-Epinephrine 1:200,000 (30 ml) Inj ONE (16:01)
[2018-09-25] MEDS ORDERED: HEMOSTATIC MATRIX 10 ML DIS.NEEDLE TOP ONE (16:08)
[2018-09-25] MEDS ORDERED: Neostigmine 1:1000 (1 mg/ml) Inj ONE (16:13)
[2018-09-25] MEDS ORDERED: HYDROmorphone 0.5 mg/0.5 ml ISec IVP PRN (17:04)
--- NOTE | 2018-09-25 17:12 | PCM.ANESB5 ---
Transverse Abdominis Block - Transverse Abdominis Plane Date of Procedure: 09/25/18 Anesthesiologist: Mikhail Del Cid Pre-Procedure Diagnosis: [place]'s Post-Procedure Diagnosis: Same Procedure Performed: Transverse Abdominis Plane Nerve Block Left - Procedure Transverse Abdominis Plane Nerve Block: The procedure was explained to the patient that it is for post-operative pain management and would be performed after surgery. Consent was obtained prior to surgery after a thorough discussion with the patient regarding the benefits and possible complications of transverse abdominis plane block. After the surgery had concluded and before the patient emerged from general anesthesia, time-out was held with the circulating nurse to re-confirm the appropriate block. With the patient in right lateral decubitus position, the ultrasound probe was placed transverse to the LEFT abdominal wall at the mid-axillary line above the iliac crest of the appropriate side. The LEFT skin, subcutaneous tissue, fat, external oblique muscle, internal oblique muscle, and the transverse abdominis muscle were identified. The general area of the block site was then prepped with Chloraprep. At this point, a # 21-gauge Stimuplex 4-inch needle was inserted posterior to and in plane with the ultrasound probe and directed anteriorly. Needle was advanced under direct ultrasound visualization until it reached the plane between the internal oblique and transverse abdominis muscles. After appropriate placement, 2mL of local anesthetic solution was injected. When the transverse abdominis plane was observed expanding in an ellipsoid way, the rest of the solution was slowly injected. A total of ___30__ mL of __0.25__ % bupivacaine with [id number] epinephrine was used for this block. The needle was then removed and sterile dressing was applied. The patient had stable vital signs throughout and had no untoward complications after emergence from general anesthesia in the recovery room.
--- NOTE | 2018-09-25 17:14 | PCM.SURG1 ---
Surgeon's Initial Post Op Note - Surgeon's Notes Surgeon: Dr. Lockwood Control Panel Builder: Dr. Chris, Dr. Reeves PGY3, Dr. Andino PGY2 Type of Anesthesia: General Endo Anesthesia Administered By: Dr. Del Cid, Dr. Fischer Pre-Operative Diagnosis: [place] Operative Findings: See operative dictation Post-Operative Diagnosis: Same Operation Performed: Robotic Adrenalectomy Specimen/Specimens Removed: Adrenal Gland Estimated Blood Loss: EBL {In ML}: 20 Blood Products Given: N/A Drains Used: No Drains Post-Op Condition: Good Date of Surgery/Procedure: 09/25/18 Time of Surgery/Procedure: 17:17
[2018-09-25] MEDS ORDERED: Lactated Ringer's 1,000 ML IV SCH (17:15)
[2018-09-25] MEDS ORDERED: Hydrocortisone- 50 MG in Sodium Chloride 0.9% 100 ML IV SCH (18:00)
[2018-09-25] MEDS: Lactated Ringer's 1,000 ML IV SCH (22:30)
[2018-09-26 05:07] LABS: HEMOGLOBIN 11.5 g/dL (12.0-16.0); MEAN CELL VOLUME 91.6 fl (81.0-99.0); MEAN CORPUSCULAR HEMOGLOBIN 30.2 pg (27.0-31.0); RBC 3.81 Mil/uL (3.80-5.20); WHITE BLOOD COUNT 9.9 K/uL (4.8-10.8)
[2018-09-26 05:14] LABS: BLOOD UREA NITROGEN 14 mg/dl (7-17); CALCIUM 9.1 mg/dL (8.4-10.2); GFR NON-AFRICAN AMERICAN > 60
[2018-09-26] MEDS: Lactated Ringer's 1,000 ML IV SCH (05:30)
[2018-09-26] MEDS ORDERED: ceFAZolin 1 GM in Sodium Chloride 0.9% 100 ML IVPB SCH (06:30)
[2018-09-26] MEDS: ceFAZolin 1 GM in Sodium Chloride 0.9% 100 ML IVPB SCH ×2 (07:37→15:56)
[2018-09-26] MEDS: Omega-3-Acid Ethyl Esters 1 GM Cap PO SCH (08:37)
[2018-09-26] MEDS: Potassium Chloride 10 mEq ER Tab PO SCH (08:37)
[2018-09-26] MEDS: Oxycodone/Acetaminophen 5/325 mg Tab PO PRN ×3 (09:00→17:53)
[2018-09-27] MEDS: Oxycodone/Acetaminophen 5/325 mg Tab PO PRN ×2 (01:37→12:38)
[2018-09-27] MEDS: Potassium Chloride 10 mEq ER Tab PO SCH (09:03)
[2018-09-27] MEDS: Omega-3-Acid Ethyl Esters 1 GM Cap PO SCH (09:04)
--- NOTE | 2018-09-27 10:22 | CP.PCM.DIS ---
Provider - Provider Date of Admission: 09/25/18 17:06 Attending physician: Jean Lockwood MD Time Spent in preparation of Discharge (in minutes): 35 Diagnosis - Discharge Diagnosis (1) [place] syndrome Status: Resolved Priority: Medium (2) Left adrenal mass Status: Resolved Priority: Medium Hospital Course - Lab Results Lab Results: Most Recent Lab Values WBC 9.9 K/uL (4.8-10.8) 09/26/18 05:00 RBC 3.81 Mil/uL (3.80-5.20) 09/26/18 05:00 Hgb 11.5 g/dL (12.0-16.0) L 09/26/18 05:00 Hct 34.9 % (34.0-47.0) 09/26/18 05:00 MCV 91.6 fl (81.0-99.0) 09/26/18 05:00 MCH 30.2 pg (27.0-31.0) 09/26/18 05:00 MCHC 33.0 g/dL (33.0-37.0) 09/26/18 05:00 RDW 17.0 % (11.5-14.5) H 09/26/18 05:00 Plt Count 223 K/uL (130-400) 09/26/18 05:00 Sodium 140 mmol/l (132-148) 09/26/18 05:00 Potassium 3.7 MMOL/L (3.6-5.0) 09/26/18 05:00 Chloride 103 mmol/L (98-107) 09/26/18 05:00 Carbon Dioxide 31 mmol/L (22-30) H 09/26/18 05:00 Anion Gap 10 (10-20) 09/26/18 05:00 BUN 14 mg/dl (7-17) 09/26/18 05:00 Creatinine 0.6 mg/dl (0.7-1.2) L 09/26/18 05:00 Est GFR ( Amer) > 60 09/26/18 05:00 Est GFR (Non-Af Amer) > 60 09/26/18 05:00 POC Glucose (mg/dL) 112 mg/dL (65-110) H 09/27/18 07:07 Random Glucose 109 mg/dL (65-105) H 09/26/18 05:00 Calcium 9.1 mg/dL (8.4-10.2) 09/26/18 05:00 Cortisol AM Sample 35.1 ug/dL (4.46-22.7) H 09/26/18 05:00 Blood Type A POSITIVE 09/25/18 12:15 Antibody Screen Negative 09/25/18 12:15 Crossmatch See Detail 09/25/18 12:15 BBK History Checked Patient has bt 09/25/18 12:15 - Hospital Course Hospital Course: Pt was admitted on 09/25/18 for a robotic adrenalectomy. The surgery was unevenful. Her post operative course was likewise unevenful. Imediatly post p she was placed on low does mineralcorticoids which were discontineud without any issue, she was also discontinued from her multiple blood pressure medications which she tolerated well. She was kept for a second day due to pain and concern over her 12 stairs. Today she loos well no distress and is clear for disharge home. Discharge Exam - Head Exam Head Exam: ATRAUMATIC, NORMOCEPHALIC - Eye Exam Eye Exam: EOMI, Normal appearance - Respiratory Exam Respiratory Exam: NORMAL BREATHING PATTERN - Cardiovascular Exam Cardiovascular Exam: +S1, +S2 - GI/Abdominal Exam GI & Abdominal Exam: Soft. absent: Distended, Firm, Guarding, Hernia, Rigid, Tenderness Additional comments: Incisions well approximated with neha in place. - Neurological Exam Neurological exam: Alert, Oriented x3 - Psychiatric Exam Psychiatric exam: Normal Affect, Normal Mood - Skin Skin Exam: Dry, Intact Discharge Plan - Follow Up Plan Condition: GOOD Disposition: HOME/ ROUTINE Patient education suggested?: Yes Instructions: Adrenalectomy, Laparoscopic Surgery Additional Instructions: No heavy lifting over 20lbs for 4 weeks nothing over 40 lbs for 8 weeks. You may shower however no soaking or baths. If you develop new or concerning symptoms please return to the ED. Otherwise followup in family medicine clinic for adjustment of your home medications as they will likely change after the surgery. Follow up in surgery clinic in 2 weeks. For pain take advil and/or tylenol as decribed on the bottle.
[2018-09-27 12:35] VITALS: BP 119/84; PULSE 90; RESP 26; TEMP 97.8; O2SAT 95
--- NOTE | 2018-09-28 18:35 | OP ---
PROCEDURE DATE: 09/25/2018 PREOPERATIVE DIAGNOSIS: Adrenal adenoma causing [place]. POSTOPERATIVE DIAGNOSIS: Adrenal adenoma causing Keith. PROCEDURE: Robotic left adrenalectomy. SURGEONS: Jean Lockwood MD and Allan Chris M.D. SURGEON ISRAEL: Jay Reeves, PGY-3. CHECK CLERK: Dr. Andino, PGY-2 TYPE OF ANESTHESIA: General anesthesia. ANESTHESIOLOGISTS: Kenny Del Cid MD and Justin Fischer MD INDICATIONS: This is a 38-year-old female who presented to clinic with poorly controlled hypertension, on multiple medications, abdominal striae, buffalo hump; typical Cushingoid species. 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 So, therefore, a left adrenalectomy was indicated. The risks, benefits, and alternatives of surgery were discussed with the patient and informed consent was contained prior to entry to the operating room by Dr. Lockwood himself. DETAILS OF THE OPERATION: The patient was brought to the operating room, was placed on the operating table in the supine position. Time-outs were performed using both pre-induction and pre-incision safety checklist to verify the correct patient, procedure, site, additional criteria, critical information. Prior to beginning the procedure, intravenous antibiotics and subcutaneous heparin were administered. After induction of general endotracheal anesthesia, a Zuniga catheter was inserted. The abdomen was prepped in the usual sterile fashion. The patient was then positioned in a full right lateral decubitus position with appropriate padding. The abdomen was approached under direct visualization using an optical 8 mm trocar and pneumoperitoneum was induced. The next three 8-mm trocars were then placed along the costal margin extending from medial to lateral and a 12mm assist port was placed inferior to the medial 8mm port the robot was docked and the camera was inserted and targeted. All the instruments were then placed inside the abdomen. Next, exploration of the abdomen showed no damage had occurred during placement of the trocars. Then the splenic flexure was mobilized and the white line of Toldt then incised using the robotic monopolar mega. The colon was then bluntly dissected in the alveolar plane under direct visualization. It was retracted medially, layer by layer in a pristine fashion until the psoas tendon was then visible. Just medial to the psoas tendon, the gonadal vein was then identified. The dissection was then continued superiorly tracing the gonadal vein until it reached the renal vein. The renal vein was then followed to adrenal takeoff. Using Hem-o-martha clips, the gonadal vein was then doubly clipped on the side closest to the renal vein and singly clipped on the side distal to the renal vein. It was then cut using a robotic vessel sealer. All tissue planes were very visible. There was no distortion of the tissue plane. Dissection was then carried out using the vessel sealer hugging up against the left kidney until the adrenal gland had been completely dissected off the kidney. Hemostasis was maintained the whole time with minimal blood loss. All arterial supply to the adrenal gland was dissected using the robotic vessel sealer without any issues. The left adrenal gland was then placed in a impermeable EndoCatch bag and was removed through the patient care nursing assistant port. The extraction site was then closed using a 0 PDS suture. Pneumoperitoneum was released to 5 mmHg and then re-inflated to check for bleeding. No bleeding was noted. The rest of the abdomen was inspected. The robot was then undocked. The ports were removed. All port sites were closed using a 2-0 Vicryl stitch as well as a 4-0 Monocryl suture and neha after nurses reported all counts being correct. There was minimal blood loss. Dr. Allan Chris and Dr. Jean Lockwood were in the room all time until the patient was extubated. The patient tolerated the procedure well and was transferred to the ICU for monitoring. Jay Reeves DO Jean Lockwood M.D. LELE
== END 2018-09-27 15:00 | disposition home or self-care (01) | DRG 401 ==
LOC: H.OPSURG 11:16 → H.ICU/CCU 17:06
PROVIDERS: ADMIT Urology; ATTEND Urology
PROC: 3E0T3BZ Introduction of Anesthetic Agent into Peripheral Nerves and Plexi, Percutaneous Approach (ICD-10-PCS; 2018-09-25)
PROC: 0GT24ZZ Resection of Left Adrenal Gland, Percutaneous Endoscopic Approach (ICD-10-PCS; principal; 2018-09-25 13:00)
PROC: 8E0W4CZ Robotic Assisted Procedure of Trunk Region, Percutaneous Endoscopic Approach (ICD-10-PCS; 2018-09-25 13:00)
DX: E24.9 Cushing's syndrome, unspecified (principal); I10 Essential (primary) hypertension; D13.4 Benign neoplasm of liver; D35.00 Benign neoplasm of unspecified adrenal gland

== ENCOUNTER 2018-10-02 16:55 | Inpatient (IN) | payer MEDICAID, SELFPAY ==
--- NOTE | 2018-10-02 17:34 | ED PDOC ---
HPI: General Adult Time Seen by Provider: 10/02/18 17:11 Chief Complaint (Nursing): Palpitations Chief Complaint (Provider): rapid heart rate History Per: Garden Worker ([id number]) History/Exam Limitations: no limitations Current Symptoms Are (Timing): Still Present Severity: Moderate Recently: Treated By A Physician, Hospitalized Additional Complaint(s): 38yo female one week post op from lap partial adrenalectomy, went for followup to clinic today found to be tachycardic with some mild SOB in clinic, sent to ED for further eval. Denies fever, admits to mild cough, notes ongoing mild abd pain, denies bleeding or drainage from surgical sites. Admits to some leg pains/swelling, denies falls, syncope, vomiting or diarrhea. 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 ), HTN Denies: Chronic Kidney Disease - Surgical History Surgical History: Cholecystectomy Other surgeries: as per HPI - Family History Family History: States: Unknown Family Hx - Living Arrangements Living Arrangements: With Family - Social History Current smoker - smoking cessation education provided: No - Immunization History Hx Tetanus Toxoid Vaccination: No Hx Influenza Vaccination: No Hx Pneumococcal Vaccination: No - Home Medications Home Medications: Ambulatory Orders Medication Instructions Recorded Doxazosin [Cardura] 1 mg PO HS 09/18/18 Lisinopril [Zestril] 20 mg PO DAILY 09/18/18 [place]-3 Fatty Acids [[place]-3] 1 cap PO DAILY 09/18/18 Spironolactone [Aldactone] 50 mg PO HS 09/18/18 amLODIPine [Norvasc] 10 mg PO DAILY 09/18/18 Potassium Chloride [Klor-Con 10] 10 meq PO DAILY #10 ter 09/19/18 - Allergies Allergies/Adverse Reactions: Allergies Allergy/AdvReac Type Severity Reaction Status Date / Time No Known Allergies Allergy Verified 10/02/18 17:01 Review of Systems Constitutional: Positive for: Weakness, Malaise. Negative for: Fever Respiratory: Positive for: Cough, Shortness of Breath Gastrointestinal: Negative for: Nausea, Abdominal Pain Genitourinary Female: Negative for: Dysuria Musculoskeletal: Negative for: Neck Pain Skin: Negative for: Rash, Lesions Neurological: Negative for: Weakness, Numbness Psych: Negative for: Anxiety Physical Exam - Reviewed Nursing Documentation Reviewed: Yes Vital Signs Reviewed: Yes - Physical Exam Appears: Positive for: Non-toxic, No Acute Distress Head Exam: Positive for: ATRAUMATIC, NORMAL INSPECTION, NORMOCEPHALIC Skin: Positive for: Normal Color, Warm, DRY Eye Exam: Positive for: EOMI, Normal appearance, PERRL ENT: Positive for: Normal ENT Inspection Neck: Positive for: Normal, Painless ROM Cardiovascular/Chest: Positive for: Regular Rate, Rhythm Respiratory: Positive for: Decreased Breath Sounds Gastrointestinal/Abdominal: Positive for: Soft. Negative for: Tenderness, Guarding Back: Positive for: Normal Inspection Extremity: Positive for: Normal ROM Neurological/Psych: Positive for: Awake, Alert, Normal Tone. Negative for: Mood/Affect - Laboratory Results Result Diagrams: 10/02/18 17:39 10/02/18 17:39 - ECG ECG: Positive for: Interpreted By Fl ECG Rhythm: Positive for: Normal QRS, Normal ST Segment, Sinus Tachycardia, Nons pecific Changes O2 Sat by Pulse Oximetry: 98 Pulse Ox Interpretation: Normal - Radiology X-Ray: Interpreted by Fl X-Ray Interpretation: Other (poor inspiratory effort) Medical Decision Making Medical Decision Making: labs and CTA chest/ abd pel ordered to r/o PE and eval surgical site given unexplained resting tachycardia labs reviewed and normal WBC, normal lactate CTA prelim read +bilateral pneumonia, neg for PE, surgical beds post operative inflammatory changes noted Antibiotics initiated after cultures obtained IVF initiated admit hospitalist for clinic, Dr Montez aware 945pm tylenol and morphine ordered for post operative pain, 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
[2018-10-02 17:54] LABS: BASO % 0.7 % (0.0-2.0); EOS # 0.1 K/uL (0.0-0.7); EOS % 1.4 % (0.0-4.0); HEMOGLOBIN 12.4 g/dL (12.0-16.0); LYMPH # 1.4 K/uL (1.0-4.3); MEAN CELL VOLUME 89.2 fl (81.0-99.0); MEAN CORPUSCULAR HEMOGLOBIN 29.8 pg (27.0-31.0); MEAN CORPUSCULAR HGB CONC 33.4 g/dL (33.0-37.0); MEAN PLATELET VOLUME 8.2 fl (7.2-11.7); MONO # 0.5 K/uL (0.0-0.8); MONO % 8.1 % (0.0-10.0); NEUT # 4.4 K/uL (1.8-7.0); NEUT % 67.8 % (50.0-75.0); NRBC % 0.1 % (0.0-0.0); RBC 4.17 Mil/uL (3.80-5.20); RED CELL DISTRIBUTION WIDTH 17.2 % (11.5-14.5); WHITE BLOOD COUNT 6.5 K/uL (4.8-10.8)
[2018-10-02 18:05] LABS: ALB/GLOB RATIO 1.3 (1.0-2.1); ALBUMIN 4.1 g/dL (3.5-5.0); ALT/SGPT 211 U/L (9-52); AST/SGOT 101 U/L (14-36); BLOOD UREA NITROGEN 13 mg/dl (7-17); GFR NON-AFRICAN AMERICAN > 60
[2018-10-02 18:18] LABS: B-TYPE NATRIURETIC PEPTIDE 30.1 pg/ml (0-450)
[2018-10-02 19:27] LABS: VENOUS BLOOD GAS BASE EXCESS 2.4 mmol/L (0.0-2.0); VENOUS BLOOD GAS PCO2 42 mmHg (40-60); VENOUS BLOOD GAS PO2 26 mm/Hg (30-55); VENOUS BLOOD PH 7.42 (7.32-7.43)
[2018-10-02 20:34] LABS: SQUAMOUS EPITHIAL 5 /hpf (0-5); URINE BACTERIA RARE (<OCC); URINE BILIRUBIN NEGATIVE (NEGATIVE); URINE BLOOD MODERATE (NEGATIVE); URINE CLARITY SLIGHTY-CLOUDY (Clear); URINE COLOR YELLOW (YELLOW); URINE GLUCOSE (UA) NEG (NEGATIVE); URINE LEUKOCYTE ESTERASE TRACE Leu/uL (Negative); URINE PROTEIN NEGATIVE (NEGATIVE); URINE UROBILINOGEN 0.2-1.0 mg/dL (0.2-1.0)
[2018-10-02] MEDS ORDERED: Piperacillin/Tazobact 4.5 GM in Sodium Chloride 0.9% 100 ML IVPB STA (21:31)
[2018-10-02] MEDS ORDERED: Sodium Chloride 0.9% 1,000 ML IV STA ×2 (21:32→21:43)
[2018-10-02] MEDS ORDERED: Vancomycin 1 g Inj ONE (21:46)
[2018-10-02] MEDS ORDERED: Sodium Chloride 3% for Inhalation 4 ML VIAL.NEB IH PRN (23:23)
[2018-10-02 23:55] VITALS: BMI 38.1
--- NOTE | 2018-10-03 00:45 | CP.PCM.HP ---
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 --Pt complains of 2 days Hx of mild chest pain, mild SOB, generalized bodyaches, nausea, lack of appetite, generalized weakness, headache, chills, tremors. No ill contacts. No recent travel. Pt denies fever, sweats, nasal congestion, cough, vomiting, diarrhea or new onset rash. PMD: Dr Lenny Thrasher at [facility]. NKDA Meds: Norvasc 5 MG Once a day; Lisinopril 10 MG Once a day; Spironolactone 50mg PO HS, KCL 10 mEq PO daily. Pt reports she recently stopped Doxazosin as per PCP. 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 -SHx: Denies smoking cigarettes, drinking ETOH or using drugs -FHx: Father: DMII, Maternal aunt: unkown [place] ED Course: --VS: WNL except for HR 126-high. --Lactic acid 1.3-WNL. --CMP wnl except for elevated AST/ALT 101/211. --Pro-BNP 30.1-wnl, troponin neg. --CT Chest/Abdomen/Pelvis: no evidence of PE, b/l lower lobes consolidation (pneumonia), moderate cardiomegaly w/ pulmonary venous congestive changes, non- obstructing calculus in lower pole of R kidney. Present on Admission - Present on Admission Any Indicators Present on Admission: No Review of Systems - Constitutional Constitutional: Chills, Weakness. absent: Fever - EENT Eyes: absent: Change in Vision Nose/Mouth/Throat: absent: Nasal Congestion, Throat Swelling, Neck Pain, Neck Mass - Cardiovascular Cardiovascular: Chest Pain, Dyspnea, Palpitations. absent: Pedal Edema - Respiratory Respiratory: Dyspnea. absent: Cough, Wheezing - Gastrointestinal Gastrointestinal: Nausea. absent: Diarrhea, Vomiting - Genitourinary Genitourinary: absent: Dysuria, Flank Pain, Hematuria Past Patient History - Infectious Disease Hx of Infectious Diseases: None - Past Medical History & Family History Past Medical History?: Yes - Past Social History Smoking Status: Never Smoked - CARDIAC Hx Hypertension: Yes - PULMONARY Hx Respiratory Disorders: No - NEUROLOGICAL Hx Neurological Disorder: No - HEENT Hx HEENT Problems: No - RENAL Hx Chronic Kidney Disease: No - ENDOCRINE/METABOLIC Hx Endocrine Disorders: Yes Other/Comment: KEITH SYNDROME - HEMATOLOGICAL/ONCOLOGICAL Hx Blood Disorders: No Hx Blood Transfusions: No Other/Comment: keith syndrome - INTEGUMENTARY Hx Dermatological Problems: No - MUSCULOSKELETAL/RHEUMATOLOGICAL Hx Musculoskeletal Disorders: No Hx Back Pain: Yes Hx Falls: No - GASTROINTESTINAL Hx Gastrointestinal Disorders: No - GENITOURINARY/GYNECOLOGICAL Hx Genitourinary Disorders: No - PSYCHIATRIC Hx Psychophysiologic Disorder: No Hx Substance Use: No - SURGICAL HISTORY Hx Cholecystectomy: Yes - ANESTHESIA Hx Anesthesia: Yes Hx Anesthesia Reactions: No Hx Malignant Hyperthermia: No Meds Allergies/Adverse Reactions: Allergies Allergy/AdvReac Type Severity Reaction Status Date / Time No Known Allergies Allergy Verified 10/02/18 17:01 Physical Exam - Constitutional Appears: No Acute Distress - Head Exam Head Exam: ATRAUMATIC, NORMAL INSPECTION - Eye Exam Eye Exam: EOMI, Normal appearance - ENT Exam ENT Exam: Mucous Membranes Moist - Neck Exam Neck exam: Positive for: Full Rom, Normal Inspection. Negative for: Meningismus - Respiratory Exam Respiratory Exam: Decreased Breath Sounds (on b/l lower lobes.), NORMAL ARTI ATHING PATTERN. absent: Rhonchi, Wheezes, Respiratory Distress - Cardiovascular Exam Cardiovascular Exam: Tachycardia, +S1, +S2 - GI/Abdominal Exam GI & Abdominal Exam: Soft. absent: Guarding, Rebound, Rigid, Tenderness Additional comments: Presence of striae on inspection. - Extremities Exam Extremities exam: Positive for: full ROM, normal inspection. Negative for: calf tenderness, pedal edema, tenderness - Back Exam Back exam: absent: CVA tenderness (L), CVA tenderness (R) - Neurological Exam Neurological exam: Alert, Oriented x3 - Psychiatric Exam Psychiatric exam: Normal Affect, Normal Mood Results - Vital Signs Recent Vital Signs: Last Vital Signs Temp 99.5 F 10/02/18 22:29 Pulse 111 H 10/02/18 23:30 Resp 16 10/02/18 22:29 BP 127/80 10/02/18 22:29 Pulse Ox 98 10/02/18 23:39 - Labs Result Diagrams: 10/02/18 17:39 10/02/18 17:39 Labs: Laboratory Results - last 24 hr 10/02/18 10/02/18 10/02/18 17:39 17:39 17:39 WBC 6.5 RBC 4.17 Hgb 12.4 Hct 37.2 MCV 89.2 D MCH 29.8 MCHC 33.4 RDW 17.2 H Plt Count 229 MPV 8.2 Neut % (Auto) 67.8 Lymph % (Auto) 22.0 [place] % (Auto) 8.1 Eos % (Auto) 1.4 Baso % (Auto) 0.7 Neut # (Auto) 4.4 Lymph # (Auto) 1.4 [place] # (Auto) 0.5 Eos # (Auto) 0.1 Baso # (Auto) 0.0 pO2 VBG pH VBG pCO2 VBG HCO3 VBG Total CO2 VBG O2 Sat (Calc) VBG Base Excess VBG Potassium Glucose Lactate FiO2 Sodium 139 Potassium 4.1 Chloride 103 Carbon Dioxide 27 Anion Gap 13 BUN 13 Creatinine 0.7 Est GFR ( Amer) > 60 Est GFR (Non-Af Amer) > 60 POC Glucose (mg/dL) Random Glucose 131 H Calcium 10.0 Total Bilirubin 1.3 AST 101 H D ALT 211 H D Alkaline Phosphatase 88 Troponin I < 0.0120 NT-Pro-B Natriuret Pep 30.1 Total Protein 7.2 Albumin 4.1 Globulin 3.2 Albumin/Globulin Ratio 1.3 Venous Blood Potassium Urine Color Urine Clarity Urine pH Ur Specific [place] Urine Protein Urine Glucose (UA) Urine Ketones Urine Blood Urine Nitrate Urine Bilirubin Urine Urobilinogen Ur Leukocyte Esterase Urine RBC (Auto) Urine Microscopic WBC Ur Squamous Epith Cells Urine Bacteria Blood Type A POSITIVE Antibody Screen Negative BBK History Checked Patient has bt 10/02/18 10/02/18 10/02/18 17:52 19:10 19:39 WBC RBC Hgb Hct MCV MCH MCHC RDW Plt Count MPV Neut % (Auto) Lymph % (Auto) [place] % (Auto) Eos % (Auto) Baso % (Auto) Neut # (Auto) Lymph # (Auto) [place] # (Auto) Eos # (Auto) Baso # (Auto) pO2 26 L VBG pH 7.42 VBG pCO2 42 VBG HCO3 25.5 VBG Total CO2 28.5 H VBG O2 Sat (Calc) 52.2 VBG Base Excess 2.4 H VBG Potassium 4.1 Glucose 113 H Lactate 1.3 FiO2 21.0 Sodium 138.0 Potassium Chloride 105.0 Carbon Dioxide Anion Gap BUN Creatinine Est GFR ( Amer) Est GFR (Non-Af Amer) POC Glucose (mg/dL) 119 H Random Glucose Calcium Total Bilirubin AST ALT Alkaline Phosphatase Troponin I NT-Pro-B Natriuret Pep Total Protein Albumin Globulin Albumin/Globulin Ratio Venous Blood Potassium 4.1 Urine Color Yellow Urine Clarity Slighty-cloudy Urine pH 6.0 Ur Specific [place] 1.009 Urine Protein Negative Urine Glucose (UA) Neg Urine Ketones Negative Urine Blood Moderate Urine Nitrate Negative Urine Bilirubin Negative Urine Urobilinogen 0.2-1.0 Ur Leukocyte Esterase Trace Urine RBC (Auto) 6 H Urine Microscopic WBC 5 Ur Squamous Epith Cells 5 Urine Bacteria Rare Blood Type Antibody Screen BBK History Checked Assessment & Plan - Assessment and Plan (Free Text) Assessment: 38 year old Female with 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 --Pro-BNP 30.1-wnl, troponin neg. --CT Chest/Abdomen/Pelvis: no evidence of PE, b/l lower lobes consolidation (pneumonia), moderate cardiomegaly w/ pulmonary venous congestive changes, non- obstructing calculus in lower pole of R kidney. PLAN: >Sinus tachycardia --Afebrile, no leukocytosis, no lactic acidosis, s/p robotic surgery 1 week ago. --Well's score of 3.0 points => Moderate risk group: 16.2% chance of PE in an ED population. --Unknown etiology, PE ruled out by CT Chest, no clear septic picture. --Thyroid profile ordered. --Metoprolol 12.5mg PO Q12H initiated. >Bilateral Lower Lobe pneumonia. --Likely hospital-acquired pneumonia. --Pro-calcitonin, Strep penumo Ag, Legonela Ag, Mycoplasma Ab and sputum culture ordered. --Vancomycin IV, Zosyn IV and IV Azithromycin were ordered as empiric treatment. 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 >Transaminitis --CMP wnl except for elevated AST/ALT 101/211. --No liver abnormalities on CT Abdomen. --Repeat CMP. 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 Beckham >DVT prophylaxis -Lovenox 40 mg sc daily Case discussed with Dr Zi Montez PGY-2 - Date & Time Date: 10/02/18 Time: 22:44 <Richard Pinon - Last Filed: 10/03/18 06:25> Results - Vital Signs Recent Vital Signs: Last Vital Signs Temp 98.1 F 10/03/18 04:31 Pulse 97 H 10/03/18 04:43 Resp 19 10/03/18 04:43 BP 122/80 10/03/18 04:31 Pulse Ox 96 10/03/18 03:59 - Labs Result Diagrams: 10/02/18 17:39 10/02/18 17:39 Labs: Laboratory Results - last 24 hr 10/02/18 10/02/18 10/02/18 17:39 17:39 17:39 WBC 6.5 RBC 4.17 Hgb 12.4 Hct 37.2 MCV 89.2 D MCH 29.8 MCHC 33.4 RDW 17.2 H Plt Count 229 MPV 8.2 Neut % (Auto) 67.8 Lymph % (Auto) 22.0 [place] % (Auto) 8.1 Eos % (Auto) 1.4 Baso % (Auto) 0.7 Neut # (Auto) 4.4 Lymph # (Auto) 1.4 [place] # (Auto) 0.5 Eos # (Auto) 0.1 Baso # (Auto) 0.0 pO2 VBG pH VBG pCO2 VBG HCO3 VBG Total CO2 VBG O2 Sat (Calc) VBG Base Excess VBG Potassium Glucose Lactate FiO2 Sodium 139 Potassium 4.1 Chloride 103 Carbon Dioxide 27 Anion Gap 13 BUN 13 Creatinine 0.7 Est GFR ( Amer) > 60 Est GFR (Non-Af Amer) > 60 POC Glucose (mg/dL) Random Glucose 131 H Calcium 10.0 Total Bilirubin 1.3 AST 101 H D ALT 211 H D Alkaline Phosphatase 88 Troponin I < 0.0120 NT-Pro-B Natriuret Pep 30.1 Total Protein 7.2 Albumin 4.1 Globulin 3.2 Albumin/Globulin Ratio 1.3 Venous Blood Potassium Urine Color Urine Clarity Urine pH Ur Specific [place] Urine Protein Urine Glucose (UA) Urine Ketones Urine Blood Urine Nitrate Urine Bilirubin Urine Urobilinogen Ur Leukocyte Esterase Urine RBC (Auto) Urine Microscopic WBC Ur Squamous Epith Cells Urine Bacteria Blood Type A POSITIVE Antibody Screen Negative BBK History Checked Patient has bt 10/02/18 10/02/18 10/02/18 17:52 19:10 19:39 WBC RBC Hgb Hct MCV MCH MCHC RDW Plt Count MPV Neut % (Auto) Lymph % (Auto) [place] % (Auto) Eos % (Auto) Baso % (Auto) Neut # (Auto) Lymph # (Auto) [place] # (Auto) Eos # (Auto) Baso # (Auto) pO2 26 L VBG pH 7.42 VBG pCO2 42 VBG HCO3 25.5 VBG Total CO2 28.5 H VBG O2 Sat (Calc) 52.2 VBG Base Excess 2.4 H VBG Potassium 4.1 Glucose 113 H Lactate 1.3 FiO2 21.0 Sodium 138.0 Potassium Chloride 105.0 Carbon Dioxide Anion Gap BUN Creatinine Est GFR ( Amer) Est GFR (Non-Af Amer) POC Glucose (mg/dL) 119 H Random Glucose Calcium Total Bilirubin AST ALT Alkaline Phosphatase Troponin I NT-Pro-B Natriuret Pep Total Protein Albumin Globulin Albumin/Globulin Ratio Venous Blood Potassium 4.1 Urine Color Yellow Urine Clarity Slighty-cloudy Urine pH 6.0 Ur Specific [place] 1.009 Urine Protein Negative Urine Glucose (UA) Neg Urine Ketones Negative Urine Blood Moderate Urine Nitrate Negative Urine Bilirubin Negative Urine Urobilinogen 0.2-1.0 Ur Leukocyte Esterase Trace Urine RBC (Auto) 6 H Urine Microscopic WBC 5 Ur Squamous Epith Cells 5 Urine Bacteria Rare Blood Type Antibody Screen BBK History Checked Attending/Attestation - Attestation I have personally seen and examined this patient.: Yes I have fully participated in the care of the patient.: Yes I have reviewed all pertinent clinical information: Yes Notes (Text): Patient seen and examined with the resident, agree with above Seen by her PMD for f/u after robotic surgery for adrenalectomy for Keith Disease. Noted to be tachycardic and thus referred here for further evaluation. Reports mild sob, no palpitations. EKG with sinus tachycardia, no acute ischemic changes noted CT chest/abd/pelvis - negative for PE, noted to have lower lobe infiltrates - started on broad spectrum Abx Afebrile. Hemodynamically stable. Started on Lopressor for rate control, BP stable Endocrinology for their expert opinion.
[2018-10-03] MEDS: Piperacillin/Tazobact 4.5 GM in Sodium Chloride 0.9% 100 ML IVPB SCH ×2 (05:33→13:25)
[2018-10-03 06:14] LABS: HEMOGLOBIN 10.8 g/dL (12.0-16.0); MEAN CELL VOLUME 89.4 fl (81.0-99.0); MEAN CORPUSCULAR HEMOGLOBIN 30.4 pg (27.0-31.0); RBC 3.54 Mil/uL (3.80-5.20); RED CELL DISTRIBUTION WIDTH 17.7 % (11.5-14.5); WHITE BLOOD COUNT 4.6 K/uL (4.8-10.8)
[2018-10-03 06:31] LABS: ALB/GLOB RATIO 1.2 (1.0-2.1); ALBUMIN 3.3 g/dL (3.5-5.0); ALT/SGPT 179 U/L (9-52); AST/SGOT 80 U/L (14-36); BLOOD UREA NITROGEN 9 mg/dl (7-17); CALCIUM 8.8 mg/dL (8.4-10.2); GFR NON-AFRICAN AMERICAN > 60
[2018-10-03 06:48] LABS: T3 1.51 nmol/L (1.49-2.60)
[2018-10-03 08:03] VITALS: RESP 18
[2018-10-03] MEDS ORDERED: Potassium Chloride 10 mEq ER Tab PO SCH (09:00)
[2018-10-03] MEDS ORDERED: Vancomycin 1.5 GM in Sodium Chloride 0.9% 500 ML IVPB SCH (09:00)
[2018-10-03] MEDS ORDERED: Azithromycin 500 MG in Sodium Chloride 0.9% 250 ML IVPB SCH (09:00)
[2018-10-03] MEDS ORDERED: Enoxaparin 40 mg Syringe SC SCH (09:00)
--- NOTE | 2018-10-03 10:54 | CP.PCM.DIS ---
Provider - Provider Date of Admission: 10/02/18 21:43 Attending physician: Richard Pinon Consults: 10/02/18 23:22 Endocrinology Consult Routine Comment: Consulting Provider: Haleigh Beckham Consulting Physician: Haleigh Beckham Reason for Consult: Keith disease, tachycardia, s/p L aderenalectomy Time Spent in preparation of Discharge (in minutes): 20 Diagnosis - Discharge Diagnosis (1) Atelectasis of both lungs Status: Acute (2) Tachycardia Status: Acute (3) Keith syndrome Status: Resolved Priority: Medium Hospital Course - Lab Results Lab Results: Most Recent Lab Values WBC 4.6 K/uL (4.8-10.8) L 10/03/18 05:45 RBC 3.54 Mil/uL (3.80-5.20) L 10/03/18 05:45 Hgb 10.8 g/dL (12.0-16.0) L 10/03/18 05:45 Hct 31.7 % (34.0-47.0) L 10/03/18 05:45 MCV 89.4 fl (81.0-99.0) 10/03/18 05:45 MCH 30.4 pg (27.0-31.0) 10/03/18 05:45 MCHC 34.0 g/dL (33.0-37.0) 10/03/18 05:45 RDW 17.7 % (11.5-14.5) H 10/03/18 05:45 Plt Count 201 K/uL (130-400) 10/03/18 05:45 MPV 8.2 fl (7.2-11.7) 10/02/18 17:39 Neut % (Auto) 67.8 % (50.0-75.0) 10/02/18 17:39 Lymph % (Auto) 22.0 % (20.0-40.0) 10/02/18 17:39 [place] % (Auto) 8.1 % (0.0-10.0) 10/02/18 17:39 Eos % (Auto) 1.4 % (0.0-4.0) 10/02/18 17:39 Baso % (Auto) 0.7 % (0.0-2.0) 10/02/18 17:39 Neut # (Auto) 4.4 K/uL (1.8-7.0) 10/02/18 17:39 Lymph # (Auto) 1.4 K/uL (1.0-4.3) 10/02/18 17:39 [place] # (Auto) 0.5 K/uL (0.0-0.8) 10/02/18 17:39 Eos # (Auto) 0.1 K/uL (0.0-0.7) 10/02/18 17:39 Baso # (Auto) 0.0 K/uL (0.0-0.2) 10/02/18 17:39 pO2 26 mm/Hg (30-55) L 10/02/18 19:10 VBG pH 7.42 (7.32-7.43) 10/02/18 19:10 VBG pCO2 42 mmHg (40-60) 10/02/18 19:10 VBG HCO3 25.5 mmol/L 10/02/18 19:10 VBG Total CO2 28.5 mmol/L (22-28) H 10/02/18 19:10 VBG O2 Sat (Calc) 52.2 % (40-65) 10/02/18 19:10 VBG Base Excess 2.4 mmol/L (0.0-2.0) H 10/02/18 19:10 VBG Potassium 4.1 mmol/L (3.6-5.2) 10/02/18 19:10 Sodium 138.0 mmol/L (132-148) 10/02/18 19:10 Chloride 105.0 mmol/L (98-107) 10/02/18 19:10 Glucose 113 mg/dL (65-105) H 10/02/18 19:10 Lactate 1.3 mmol/L (0.7-2.1) 10/02/18 19:10 FiO2 21.0 % 10/02/18 19:10 Sodium 139 mmol/l (132-148) 10/03/18 05:45 Potassium 4.0 MMOL/L (3.6-5.0) 10/03/18 05:45 Chloride 106 mmol/L (98-107) 10/03/18 05:45 Carbon Dioxide 25 mmol/L (22-30) 10/03/18 05:45 Anion Gap 12 (10-20) 10/03/18 05:45 BUN 9 mg/dl (7-17) 10/03/18 05:45 Creatinine 0.7 mg/dl (0.7-1.2) 10/03/18 05:45 Est GFR ( Amer) > 60 10/03/18 05:45 Est GFR (Non-Af Amer) > 60 10/03/18 05:45 POC Glucose (mg/dL) 119 mg/dL (65-110) H 10/02/18 17:52 Random Glucose 151 mg/dL (65-105) H 10/03/18 05:45 Calcium 8.8 mg/dL (8.4-10.2) 10/03/18 05:45 Total Bilirubin 1.3 mg/dl (0.2-1.3) 10/03/18 05:45 AST 80 U/L (14-36) H D 10/03/18 05:45 ALT 179 U/L (9-52) H 10/03/18 05:45 Alkaline Phosphatase 71 U/L (38-126) 10/03/18 05:45 Troponin I < 0.0120 ng/mL (0.00-0.120) 10/02/18 17:39 NT-Pro-B Natriuret Pep 30.1 pg/ml (0-450) 10/02/18 17:39 Total Protein 6.1 G/DL (6.3-8.2) L 10/03/18 05:45 Albumin 3.3 g/dL (3.5-5.0) L 10/03/18 05:45 Globulin 2.8 gm/dL (2.2-3.9) 10/03/18 05:45 Albumin/Globulin Ratio 1.2 (1.0-2.1) 10/03/18 05:45 Free T4 1.88 ng/dL (0.78-2.19) 10/03/18 05:45 Total T3 1.51 nmol/L (1.49-2.60) 10/03/18 05:45 TSH 3rd Generation 2.65 mIU/ML (0.46-4.68) 10/03/18 05:45 Venous Blood Potassium 4.1 mmol/L (3.6-5.2) 10/02/18 19:10 Urine Color Yellow (YELLOW) 10/02/18 19:39 Urine Clarity Slighty-cloudy (Clear) 10/02/18 19:39 Urine pH 6.0 (5.0-8.0) 10/02/18 19:39 Ur Specific [place] 1.009 (1.003-1.030) 10/02/18 19:39 Urine Protein Negative mg/dL (NEGATIVE) 10/02/18 19:39 Urine Glucose (UA) Neg mg/dL (NEGATIVE) 10/02/18 19:39 Urine Ketones Negative mg/dL (NEGATIVE) 10/02/18 19:39 Urine Blood Moderate (NEGATIVE) 10/02/18 19:39 Urine Nitrate Negative (NEGATIVE) 10/02/18 19:39 Urine Bilirubin Negative (NEGATIVE) 10/02/18 19:39 Urine Urobilinogen 0.2-1.0 mg/dL (0.2-1.0) 10/02/18 19:39 Ur Leukocyte Esterase Trace Igor/uL (Negative) 10/02/18 19:39 Urine RBC (Auto) 6 /hpf (0-3) H 10/02/18 19:39 Urine Microscopic WBC 5 /hpf (0-5) 10/02/18 19:39 Ur Squamous Epith Cells 5 /hpf (0-5) 10/02/18 19:39 Urine Bacteria Rare (<OCC) 10/02/18 19:39 Blood Type A POSITIVE 10/02/18 17:39 Antibody Screen Negative 10/02/18 17:39 BBK History Checked Patient has bt 10/02/18 17:39 - Hospital Course Hospital Course: 38 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 Patient admitted for evaluation and treatment of sinus tachycardia and B/L lower lobe pneumonia. -ED Course: --VS: WNL except for HR 126-high. --Lactic acid 1.3-WNL. --CMP wnl except for elevated AST/ALT 101/211. --Pro-BNP 30.1-wnl, troponin neg. CT Chest/Abdomen/Pelvis: no evidence of PE, b/l lower lobes consolidation (pneumonia), moderate cardiomegaly w/ pulmonary venous congestive changes, non- obstructing calculus in lower pole of R kidney. During her stay patient had no sign of sepsis, PE was ruled out, Patient was placed on metoprolol 12.5mg PO Q12H. DUe patient CT finding, Patient placed on Vanco/Zosyn and IV azithromycin for emperic treatment . Pro-calcitonin, strep ag, legonela ag, mycoplasma, and sputum culture were ordered and should be followed as Outpatient Patient seen and examined at bedside today. No acute event overnight. Patient denies fever, chills, chest pain, sob, abd pain, constipation, diarrhea. disuria or polyuria. Patient remain afebrile, and with no leukocytosis. Patient will be discharged home to follow up with PCP. Eduaction given to patient, Patient urged to use spirometry, Medication add: Metoprolol 12.5 q12h Levaquin 750mg for 5 days. Need to follow up Pro-calcitonin strep ag legonela ag mycoplasma and sputum Patient need to follow up with Surgery for surgical wound check and stable removal. Discharge Exam - Head Exam Head Exam: ATRAUMATIC, NORMAL INSPECTION - Eye Exam Eye Exam: EOMI, Normal appearance, PERRL Pupil Exam: NORMAL ACCOMODATION, PERRL - Respiratory Exam Respiratory Exam: Clear to PA & Lateral, NORMAL BREATHING PATTERN, UNREMARKABLE - Cardiovascular Exam Cardiovascular Exam: REGULAR RHYTHM, +S1, +S2 - GI/Abdominal Exam GI & Abdominal Exam: Normal Bowel Sounds, Unremarkable Additional comments: surgical scar noted on abdomen with stables - Rectal Exam Rectal Exam: NORMAL INSPECTION - Extremities Exam Extremities exam: normal inspection - Back Exam Back exam: NORMAL INSPECTION - Neurological Exam Neurological exam: Alert, CN II-XII Intact, Normal Gait, Oriented x3, Reflexes Normal - Psychiatric Exam Psychiatric exam: Normal Affect, Normal Mood Discharge Plan - Discharge Medications Prescriptions: levoFLOXacin [Levaquin] 750 mg PO DAILY #5 tab Metoprolol Tartrate 12.5 mg PO Q12H #60 tablet - Follow Up Plan Condition: FAIR Disposition: HOME/ ROUTINE Instructions: Cardioversion (DC)
--- NOTE | 2018-10-03 11:15 | CARD ---
APPROVED REPORT Date of service: 10/02/2018 EKG Measurement Heart [id number] <Conclusion> Sinus tachycardia Otherwise normal ECG
--- NOTE | 2018-10-03 11:20 | CT ---
Date of service: 10/02/2018 PROCEDURE: CT Chest, Abdomen and Pelvis with intravenous contrast HISTORY: post op adenalectomy, chest/abd pain/tachycardia COMPARISON: None available. TECHNIQUE: IV dose administered: 95 cc Visipaque 320 Radiation dose: Total exam DLP = 1170.89 mGy-cm. This CT exam was performed using one or more of the following dose reduction techniques: Automated exposure control, adjustment of the mA and/or kV according to patient size, and/or use of iterative reconstruction technique. FINDINGS: CT CHEST WITH CONTRAST: LUNGS: Dependent lower lobe platelike atelectasis. No nodule, mass or consolidation. 1 cm granuloma anterior segment right upper lobe. MEDIASTINUM: Unremarkable. Normal caliber aorta and pulmonary arterial trunk. No aortic dissection. Normal size heart. LYMPH NODES: Unremarkable. PLEURA: Unremarkable. No pneumothorax. No pleural fluid. BONES: Unremarkable. OTHER FINDINGS: None. CT ABDOMEN AND PELVIS: LIVER: Hepatic steatosis. No focal masses. No intrahepatic bile duct dilatation or perihepatic ascites. GALLBLADDER AND BILE DUCTS: Status post cholecystectomy. No abnormality is seen in the gallbladder fossa. PANCREAS: Unremarkable. No gross lesion or ductal dilatation. SPLEEN: Unremarkable. ADRENALS: Unremarkable. No mass. KIDNEYS AND URETERS: Unremarkable. No hydronephrosis. No solid mass. VASCULATURE: No aortic atherosclerotic calcification or mural plaque present. Unremarkable. No aortic aneurysm. BOWEL: Diverticulosis without an acute inflammatory component or other associated pathologic process. APPENDIX: A normal appendix is visualized in it's entirety. PERITONEUM: Unremarkable. No free fluid. No free air. LYMPH NODES: Unremarkable. No enlarged lymph nodes. BLADDER: Unremarkable. REPRODUCTIVE: Unremarkable. BONES: No acute fracture. OTHER FINDINGS: None. IMPRESSION: No significant or acute findings to account for/ related to the clinical presentation. Additional benign and/or incidental findings described above. Concordant results (preliminary interpretation) provided by [email or web address]. Procedure Completed: 19:38. Preliminary Report: Interpreted and electronically signed: 21:25. Final Interpretation: 11:16.October 03, 2018.
--- NOTE | 2018-10-03 11:34 | RAD ---
Date of service: 10/02/2018 HISTORY: Tachycardia, shortness of breath. COMPARISON: 09/18/2018. FINDINGS: LUNGS: No active pulmonary disease. PLEURA: No significant pleural effusion identified, no pneumothorax apparent. CARDIOVASCULAR: No atherosclerotic calcification present Cardiomegaly. No evidence of acute, significant cardiovascular disease. OSSEOUS STRUCTURES: No significant abnormalities. VISUALIZED UPPER ABDOMEN: Normal. OTHER FINDINGS: None. IMPRESSION: No active disease. No significant interval change compared to the prior examination(s).
[2018-10-03 12:06] VITALS: BP 121/84; PULSE 105; TEMP 97.9; O2SAT 98
--- NOTE | 2018-10-04 01:32 | CON ---
DATE: 10/03/2018 ENDOCRINOLOGY CONSULTATION LOCATION: Room 414. HISTORY OF PRESENT ILLNESS: This is a 38-year-old female with known history of Keith syndrome and underwent a recent left adrenalectomy and is now admitted with sudden onset of fever and pleuritic chest pain and has been evaluated to have pneumonia and currently receiving IV antibiotic management and is being referred now for endocrine evaluation. PAST MEDICAL HISTORY: As mentioned above, history of [place] disease with a previous left adrenal adenoma which was resected more than a week ago and underwent a left adrenalectomy as noted. FAMILY HISTORY: Positive for hypertension and diabetes. SOCIAL HISTORY The patient has supportive family. No known substance use. REVIEW OF SYSTEMS: Admits to episodic bouts of dizziness and lightheadedness with generalized body weakness. No chest pains but admits to productive cough with pleuritic chest pain and episodic bouts of shortness of breath. Her oral intake has been variable with very poor appetite as noted. No recent alterations of bowel and urinary patterns. PHYSICAL EXAMINATION: GENERAL: An average-built female, in no apparent distress. VITAL SIGNS: With a blood pressure of 140/80, pulse of 100 beats per minute and regular, temperature 98, respirations 20. Height is 5 feet 4 inches. Weight is 222 pounds. HEENT: Head: Normocephalic. Eyes: Anicteric with pink conjunctivae. Funduscopy not possible at this time. Ears, nose and throat otherwise normal. NECK: Supple. Thyroid gland is normal in size. No carotid bruits or cervical adenopathy. CARDIOPULMONARY: Some adynamic precordium. S1 and S2 are rapid and regular. LUNGS: Clear to auscultation. ABDOMEN: Flat, soft with positive bowel sounds. EXTREMITIES: No peripheral edema. Pulses are +2 bilaterally. LABORATORY DATA: Chemistry showed a BUN of 9, sodium 139, potassium 4, chloride 106, CO2 of 25, glucose 151 and creatinine 0.7. Her TSH is 2.65. No cortisol level has been done. ASSESSMENT AND PLAN: This is a 38-year-old female with known history of Keith syndrome and underwent a left adrenalectomy and is now being referred for further endocrine evaluation and management. We will concur with the present medical management for community-acquired pneumonia at this time. We will obtain a baseline fasting cortisol level and adrenocorticotropic hormone level, and this will guide our future management accordingly. The pathology of the adrenal adenoma would be interesting to know, and we will try to see if it is available already from the histopathology lab. We will follow and advise accordingly. Haleigh Beckham MD
== END 2018-10-03 15:48 | disposition home or self-care (01) | DRG 143 ==
LOC: H.ER 16:55 → H.ERHOLD 21:43 → H.TEL 10-03 03:56
PROVIDERS: ADMIT Hospitalist; ATTEND Hospitalist
DX: J98.11 Atelectasis (principal); E24.9 Cushing's syndrome, unspecified; I15.9 Secondary hypertension, unspecified; R00.0 Tachycardia, unspecified; E66.9 Obesity, unspecified; Z90.49 Acquired absence of other specified parts of digestive tract; D35.00 Benign neoplasm of unspecified adrenal gland; Z68.38 Body mass index [BMI] 38.0-38.9, adult; Z83.3 Family history of diabetes mellitus; Z98.51 Tubal ligation status; E11.9 Type 2 diabetes mellitus without complications

== ENCOUNTER 2018-10-06 13:14 | Inpatient (IN) | payer MEDICAID, SELFPAY ==
[2018-10-06 13:15] VITALS: BMI 38.1
[2018-10-06] MEDS ORDERED: Sodium Chloride 0.9% 1,000 ML IV SCH (13:45)
[2018-10-06 14:25] LABS: BASO # 0.1 K/uL (0.0-0.2); EOS # 0.1 K/uL (0.0-0.7); EOS % 2.2 % (0.0-4.0); HEMOGLOBIN 11.4 g/dL (12.0-16.0); LYMPH # 1.3 K/uL (1.0-4.3); LYMPH % 24.8 % (20.0-40.0); MEAN CELL VOLUME 89.6 fl (81.0-99.0); MEAN CORPUSCULAR HEMOGLOBIN 30.2 pg (27.0-31.0); MEAN CORPUSCULAR HGB CONC 33.7 g/dL (33.0-37.0); MEAN PLATELET VOLUME 8.4 fl (7.2-11.7); MONO # 0.5 K/uL (0.0-0.8); MONO % 9.1 % (0.0-10.0); NEUT # 3.4 K/uL (1.8-7.0); NEUT % 62.9 % (50.0-75.0); NRBC % 0.1 % (0.0-0.0); RBC 3.78 Mil/uL (3.80-5.20); RED CELL DISTRIBUTION WIDTH 17.8 % (11.5-14.5); WHITE BLOOD COUNT 5.4 K/uL (4.8-10.8)
[2018-10-06 14:50] LABS: ALB/GLOB RATIO 1.3 (1.0-2.1); ALBUMIN 3.8 g/dL (3.5-5.0); ALT/SGPT 219 U/L (9-52); AST/SGOT 134 U/L (14-36); BLOOD UREA NITROGEN 6 mg/dl (7-17); CALCIUM 9.6 mg/dL (8.4-10.2); GFR NON-AFRICAN AMERICAN > 60
[2018-10-06 14:54] LABS: SQUAMOUS EPITHIAL 31 /hpf (0-5); URINE BACTERIA OCC (<OCC); URINE BILIRUBIN NEGATIVE (NEGATIVE); URINE BLOOD NEGATIVE (NEGATIVE); URINE CLARITY CLOUDY (Clear); URINE COLOR YELLOW (YELLOW); URINE GLUCOSE (UA) NEG (NEGATIVE); URINE HYALINE CAST 0-2 /hpf (0-2); URINE LEUKOCYTE ESTERASE SMALL Leu/uL (Negative); URINE PROTEIN 30 mg/dL (NEGATIVE); URINE UROBILINOGEN 0.2-1.0 mg/dL (0.2-1.0)
--- NOTE | 2018-10-06 15:00 | ED PDOC ---
HPI: Psych/Substance Abuse Time Seen by Provider: 10/06/18 13:23 Chief Complaint (Nursing): Abdominal Pain Chief Complaint (Provider): Anxiety History Per: Patient History/Exam Limitations: no limitations Onset/Duration Of Symptoms: Days Current Symptoms Are (Timing): Still Present Additional Complaint(s): 38 y/o female with a PMHx of HTN and Eden's Disease presents to the ED complaining of anxiety associated with nausea, body aches and abdominal pain. Patient was seen here two weeks ago on 09/25/2018 when she had an adrenal mass removed. At that time, patient was admitted and then discharged home three days later. Patient returned to this ER on 10/02/2018 complaining of shortness of breath, chest pain and back pain. Patient was then worked up for a Pulmonary Embolism that resulted negative. Patient was admitted for bilateral pneumonia and discharged on with antibiotics. Since then, patient reports shortness has not improved but persists. Patient additionally notes of feeling anxious since night after being discharged. Patient states abdominal pain has persisted and has not increased or decreased in intensity. Otherwise, patient denies fever and urinary complaints. PMD: none provided Past Medical History Reviewed: Historical Data, Nursing Documentation, Vital Signs Vital Signs: Last Vital Signs Temp Pulse 138 H 10/06/18 13:18 Resp BP Pulse Ox - Medical History PMH: Keith's Syndrome (with adrenal mass plan for surgical resection ), HTN Denies: Chronic Kidney Disease - Surgical History Surgical History: Cholecystectomy - Family History Family History: States: Unknown Family Hx - Immunization History Hx Tetanus Toxoid Vaccination: No Hx Influenza Vaccination: No Hx Pneumococcal Vaccination: No - Home Medications Home Medications: Ambulatory Orders Medication Instructions Recorded Doxazosin [Cardura] 1 mg PO HS 09/18/18 Lisinopril [Zestril] 20 mg PO DAILY 09/18/18 Orange-3 Fatty Acids [Orange-3] 1 cap PO DAILY 09/18/18 Spironolactone [Aldactone] 50 mg PO HS 09/18/18 amLODIPine [Norvasc] 10 mg PO DAILY 09/18/18 Metoprolol Tartrate 12.5 mg PO Q12H #60 tablet 10/03/18 levoFLOXacin [Levaquin] 750 mg PO DAILY #5 tab 10/03/18 - Allergies Allergies/Adverse Reactions: Allergies Allergy/AdvReac Type Severity Reaction Status Date / Time No Known Allergies Allergy Verified 10/02/18 17:01 Review of Systems ROS Statement: Except As Marked, All Systems Reviewed And Found Negative Constitutional: Positive for: Other (myaglia). Negative for: Fever Cardiovascular: Positive for: Chest Pain Respiratory: Positive for: Shortness of Breath Gastrointestinal: Positive for: Nausea, Abdominal Pain. Negative for: Vomiting Genitourinary Female: Negative for: Dysuria, Frequency, Hematuria Musculoskeletal: Positive for: Back Pain Psych: Positive for: Anxiety Physical Exam - Reviewed Nursing Documentation Reviewed: Yes Vital Signs Reviewed: Yes - Physical Exam Appears: Positive for: Non-toxic, Uncomfortable Head Exam: Positive for: NORMAL INSPECTION (Morales face consistent with Eden's Disease) Skin: Positive for: Normal Color Eye Exam: Positive for: Normal appearance ENT: Positive for: Normal ENT Inspection Neck: Positive for: Normal Cardiovascular/Chest: Positive for: Tachycardia Respiratory: Positive for: Normal Breath Sounds (clear to auscultation bilaterally). Negative for: Respiratory Distress Pulses-Dorsalis Pedis (L): 2+ Pulses-Dorsalis Pedis (R): 2+ Pulses-Radial (L): 2+ Pulses-Radial (R): 2+ Gastrointestinal/Abdominal: Positive for: Soft, Other (Large; Four small incisions to the left of the abdomen with neha in place. No signs of infection at the site, no drainage and no induration). Negative for: Bowel Sounds (normoactive), Tenderness Back: Positive for: Normal Inspection. Negative for: L CVA Tenderness, R CVA Tenderness Extremity: Negative for: Swelling Neurological/Psych: Positive for: Awake, Alert, Normal Tone, Oriented - Laboratory Results Result Diagrams: 10/06/18 14:00 10/06/18 14:00 Lab Results: Troponin I < 0.0120 ng/mL (0.00-0.120) 10/06/18 14:00 Total Bilirubin 0.9 mg/dl (0.2-1.3) 10/06/18 14:00 AST 134 U/L (14-36) H D 10/06/18 14:00 ALT 219 U/L (9-52) H D 10/06/18 14:00 Alkaline Phosphatase 74 U/L (38-126) 10/06/18 14:00 Total Protein 6.8 G/DL (6.3-8.2) 10/06/18 14:00 Albumin 3.8 g/dL (3.5-5.0) 10/06/18 14:00 Globulin 3.0 gm/dL (2.2-3.9) 10/06/18 14:00 Albumin/Globulin Ratio 1.3 (1.0-2.1) 10/06/18 14:00 Urine POC: Negative - ECG ECG Rhythm: Positive for: Sinus Tachycardia Interpretation Of Abn EKG: hr: 128 , ekg reviewed by dr. moulton Rate: 128 Medical Decision Making Medical Decision Making: Time: 1357 Plan: -- EKG -- CMP -- Cortisol PM -- Magnesium -- Phosphorus -- Troponin I -- ED Urine -- CBC with Differentials -- D Dimer -- CXR Two Views -- Ativan 0.5 mg IVP -- Sodium Chloride IV 1000 mls/hr -- Zofran Inj 4 mg IVP -- Urinalysis -- Case discussed with Dr. Moulton. Will re-evaluate patient. 15:45: Pt reports anxiety improved post ativan. ivf infusing, will re-evaluate. 1645: Dr. Beckham called to notify that patient returned to ed and may be in adrenal crisis, cortisol level two days ago resulted <0.2 no replacement was given. Md recommend pt to be given solu-cortef q8h first dose stat. Dr. Valencia called for admission, MD will come to ED to eval and admit. b/p:115/76 hr:126. Pt tolerating PO fluids and patient ate a plum from home. 1700: Blood work from today reviewed medical decision admit to inpatient Telemetry. Dr. valencia evaluated PT in ed. Time: 1533 CXR RESULTS HISTORY: SOB COMPARISON: Made with chest radiograph and CTA of the chest both dated 10/02/2018 TECHNIQUE: Chest PA and lateral views FINDINGS: LUNGS: No active pulmonary disease. No change small calcified granuloma right middle lobe PLEURA: No significant pleural effusion identified. No pneumothorax apparent. CARDIOVASCULAR: No aortic atherosclerotic calcification present. Normal cardiac size. No pulmonary vascular congestion. OSSEOUS STRUCTURES: Old healed fracture deformity right anterior 2nd rib with mild surrounding callus formation. VISUALIZED UPPER ABDOMEN: Normal. OTHER FINDINGS: None. IMPRESSION: No active disease. Small calcified granuloma right middle lobe unchanged. Fracture deformity right anterior 2nd rib with some surrounding callus. Scribe Attestation: Documented by Sergio Bella, acting as a scribe Madelyn Morrison NP. Provider Scribe Attestation: All medical record entries made by the Scribe were at my direction and personally dictated by me. I have reviewed the chart and agree that the record accurately reflects my personal performance of the history, physical exam, medical decision making, and the department course for this patient. I have also personally directed, reviewed, and agree with the discharge instructions and disposition. Disposition - Clinical Impression Clinical Impression: Adrenal crisis syndrome - Patient ED Disposition Is Patient to be Admitted: Yes Counseled Patient/Family Regarding: Diagnosis - Disposition Disposition Time: 17:00 Condition: SERIOUS - Pt Status Changed To: Hospital Disposition Of: Inpatient - Admit Certification Admit to Inpatient:: After my assessment, the patient will require hospitalization for at least two midnights. This is because of the severity of symptoms shown, intensity of services needed, and/or the medical risk in this patient being treated as an outpatient. - POA Present On Arrival: None
--- NOTE | 2018-10-06 15:57 | RAD ---
Date of service: 10/06/2018 HISTORY: SOB COMPARISON: Made with chest radiograph and CTA of the chest both dated 10/02/2018 TECHNIQUE: Chest PA and lateral views FINDINGS: LUNGS: No active pulmonary disease. No change small calcified granuloma right middle lobe PLEURA: No significant pleural effusion identified. No pneumothorax apparent. CARDIOVASCULAR: No aortic atherosclerotic calcification present. Normal cardiac size. No pulmonary vascular congestion. OSSEOUS STRUCTURES: Old healed fracture deformity right anterior 2nd rib with mild surrounding callus formation. VISUALIZED UPPER ABDOMEN: Normal. OTHER FINDINGS: None. IMPRESSION: No active disease. Small calcified granuloma right middle lobe unchanged. Fracture deformity right anterior 2nd rib with some surrounding callus.
--- NOTE | 2018-10-06 18:13 | CP.PCM.HP ---
<Robbie Montezo - Last Filed: 10/06/18 18:56> History of Present Illness - History of Present Illness History of Present Illness: 38 year old F with a PMHx of [place]'s disease s/p L adrenalectomy on 09/25/18, hypertension and obesity presented to ED complaining of worsening anxiety and ge neralized body aches. --Pt complains of 7 days Hx of mild constant chest pain that aggravates with lying on left side, SOB with prolonged talking, generalized body aches, nausea, lack of appetite, generalized weakness, headache, chills, tremors and daily cramping diffuse abdominal pain. Pt had an episode of non-bloody vomiting today. No ill contacts. No recent travel. --Pt explains feeling more anxious and sad about the fact the she cannot take care of her children because of her feeling extremely tired and weak. Pt reports fatigue and lack of appetite. Pt denies suicidal ideation, harm to others. No much improvement after Ativan administration in ED. --Pt had a L adrenalectomy on 09/25/18. Pt was admitted on 10/02/18 due to tachycardia and SOB, PE ruled out, pneumonia found on CT. Pt discharged on 10/03/18 with treatment of PO Metoprolol and Levofloxacin. During this last admission, AM cortisol was <0.2 which is low. PMD: Dr Lenny Thrasher at [facility]. NKDA Meds: Norvasc 5 MG Once a day; Lisinopril 10 MG Once a day; Spironolactone 50mg PO HS, KCL 10 mEq PO daily. 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 -SHx: Denies smoking cigarettes, drinking ETOH or using drugs -FHx: Father: DMII, Maternal aunt: unkown [place] ED Course: --VS showed tachycardia at 138. --CBC unremarkable, CMP showed transaminitis AST/ALT 134/219. --IV fluids bolus, IV Zofran and IV Ativan 0.5mg were administered. --IV Hydrocortisone 100mg was administered. Present on Admission - Present on Admission Any Indicators Present on Admission: No Review of Systems - Constitutional Constitutional: Chills, Weakness - EENT Nose/Mouth/Throat: Neck Pain. absent: Sore Throat, Neck Mass - Cardiovascular Cardiovascular: Chest Pain, Dyspnea - Respiratory Respiratory: Dyspnea, Dyspnea on Exertion. absent: Cough, Hemoptysis - Gastrointestinal Gastrointestinal: Cramping, Nausea, Vomiting. absent: Abdominal Pain - Genitourinary Genitourinary: absent: Dysuria, Hematuria, Urinary Frequency - Endocrine Endocrine: Change in Body Appearance, Change in Libido, Fatigue, Palpitations Past Patient History - Infectious Disease Hx of Infectious Diseases: None - Past Medical History & Family History Past Medical History?: Yes - Past Social History Smoking Status: Never Smoked - CARDIAC Hx Hypertension: Yes - PULMONARY Hx Respiratory Disorders: No - NEUROLOGICAL Hx Neurological Disorder: No - HEENT Hx HEENT Problems: No - RENAL Hx Chronic Kidney Disease: No - ENDOCRINE/METABOLIC Hx Endocrine Disorders: Yes - HEMATOLOGICAL/ONCOLOGICAL Hx Blood Disorders: No - INTEGUMENTARY Hx Dermatological Problems: No - MUSCULOSKELETAL/RHEUMATOLOGICAL Hx Musculoskeletal Disorders: No Hx Falls: No - GASTROINTESTINAL Hx Gastrointestinal Disorders: No - GENITOURINARY/GYNECOLOGICAL Hx Genitourinary Disorders: No - PSYCHIATRIC Hx Psychophysiologic Disorder: No Hx Substance Use: No - SURGICAL HISTORY Hx Cholecystectomy: Yes - ANESTHESIA Hx Anesthesia: Yes Hx Anesthesia Reactions: No Hx Malignant Hyperthermia: No Meds Allergies/Adverse Reactions: Allergies Allergy/AdvReac Type Severity Reaction Status Date / Time No Known Allergies Allergy Verified 10/02/18 17:01 Physical Exam - Constitutional Appears: No Acute Distress - Head Exam Head Exam: ATRAUMATIC - Eye Exam Eye Exam: EOMI, PERRL - ENT Exam ENT Exam: Mucous Membranes Moist - Neck Exam Neck exam: Positive for: Full Rom Additional comments: Adipose tissue accumulation in upper back between shoulders. - Respiratory Exam Respiratory Exam: NORMAL BREATHING PATTERN. absent: Rhonchi, Wheezes, Respiratory Distress - Cardiovascular Exam Cardiovascular Exam: Tachycardia, +S1, +S2 - GI/Abdominal Exam GI & Abdominal Exam: Soft. absent: Distended, Guarding, Rebound, Rigid, Tenderness Additional comments: Presence of several pigmented striae on lower abdominal area. - Extremities Exam Extremities exam: Positive for: full ROM, normal capillary refill. Negative for: calf tenderness, joint swelling, tenderness - Back Exam Back exam: absent: CVA tenderness (L), CVA tenderness (R) - Neurological Exam Neurological exam: Alert, Oriented x3 Results - Vital Signs Recent Vital Signs: Last Vital Signs Temp Pulse 128 H 10/06/18 17:37 Resp BP Pulse Ox - Labs Result Diagrams: 10/06/18 14:00 10/06/18 14:00 Labs: Laboratory Results - last 24 hr 10/06/18 10/06/18 10/06/18 14:00 14:00 14:10 WBC 5.4 RBC 3.78 L Hgb 11.4 L Hct 33.8 L MCV 89.6 MCH 30.2 MCHC 33.7 RDW 17.8 H Plt Count 221 MPV 8.4 Neut % (Auto) 62.9 Lymph % (Auto) 24.8 [place] % (Auto) 9.1 Eos % (Auto) 2.2 Baso % (Auto) 1.0 Neut # (Auto) 3.4 Lymph # (Auto) 1.3 [place] # (Auto) 0.5 Eos # (Auto) 0.1 Baso # (Auto) 0.1 Sodium 138 Potassium 4.1 Chloride 105 Carbon Dioxide 24 Anion Gap 13 BUN 6 L Creatinine 0.8 Est GFR ( Amer) > 60 Est GFR (Non-Af Amer) > 60 Random Glucose 120 H Calcium 9.6 Phosphorus 5.0 H Magnesium 1.7 Total Bilirubin 0.9 AST 134 H D ALT 219 H D Alkaline Phosphatase 74 Troponin I < 0.0120 Total Protein 6.8 Albumin 3.8 Globulin 3.0 Albumin/Globulin Ratio 1.3 Urine Color Yellow Urine Clarity Cloudy Urine pH 6.0 Ur Specific [place] 1.014 Urine Protein 30 Urine Glucose (UA) Neg Urine Ketones Negative Urine Blood Negative Urine Nitrate Negative Urine Bilirubin Negative Urine Urobilinogen 0.2-1.0 Ur Leukocyte Esterase Small Urine RBC (Auto) 2 Urine Microscopic WBC 15 H Ur Squamous Epith Cells 31 H Urine Bacteria Occ H Hyaline Casts 0-2 Assessment & Plan - Assessment and Plan (Free Text) Assessment: 38 year old Female with PMHx of [place]'s disease s/p L adrenalectomy on 09/25/18, hypertension and obesity is admitted for evaluation and management of adrenal crisis. --AM Cortisol <0.2-extremely low, on 10/03/18. PLAN: >Adrenal Crisis --Hypocortisolism, symptomatic --IV Hydrocortisone 100mg Q8H --Endocrinology consult, Dr Beckham. --Discontinue Spironolactone as per adrenal insufficiency. --F/U labs: PM cortisol and ACTH. 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 >Sinus tachycardia --PE ruled out by CT Chest. --Thyroid profile WNL 3 days ago --Continue: Metoprolol 12.5mg PO Q12H --F/U vital signs. >Anxiety --Likely related to organic cause, hypocortisolism. --S/P Ativan 0.5mg. --F/U symptoms. 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 --Stable, BP is wnl today. --Discontinue Spironolactone and hypotensive medications. --Metoprolol 12.5mg PO Q12H initiated for tachycardia. >Transaminitis --Elevated AST/ALT: 134/219. --No liver abnormalities on CT Abdomen. --Repeat CMP. >DVT prophylaxis --Lovenox 40 mg sc daily --Consult endocrinolgoist, Dr. Beckham Case discussed with Dr Doe Montez PGY-2 - Date & Time Date: 10/06/18 Time: 18:31 <Levi Azar - Last Filed: 10/06/18 19:25> Results - Vital Signs Recent Vital Signs: Last Vital Signs Temp 98 F 10/06/18 18:50 Pulse 128 H 10/06/18 19:07 Resp 17 10/06/18 18:50 BP 119/71 10/06/18 18:50 Pulse Ox 98 10/06/18 18:50 - Labs Result Diagrams: 10/06/18 14:00 10/06/18 14:00 Labs: Laboratory Results - last 24 hr 10/06/18 10/06/18 10/06/18 14:00 14:00 14:10 WBC 5.4 RBC 3.78 L Hgb 11.4 L Hct 33.8 L MCV 89.6 MCH 30.2 MCHC 33.7 RDW 17.8 H Plt Count 221 MPV 8.4 Neut % (Auto) 62.9 Lymph % (Auto) 24.8 [place] % (Auto) 9.1 Eos % (Auto) 2.2 Baso % (Auto) 1.0 Neut # (Auto) 3.4 Lymph # (Auto) 1.3 [place] # (Auto) 0.5 Eos # (Auto) 0.1 Baso # (Auto) 0.1 Sodium 138 Potassium 4.1 Chloride 105 Carbon Dioxide 24 Anion Gap 13 BUN 6 L Creatinine 0.8 Est GFR ( Amer) > 60 Est GFR (Non-Af Amer) > 60 Random Glucose 120 H Calcium 9.6 Phosphorus 5.0 H Magnesium 1.7 Total Bilirubin 0.9 AST 134 H D ALT 219 H D Alkaline Phosphatase 74 Troponin I < 0.0120 Total Protein 6.8 Albumin 3.8 Globulin 3.0 Albumin/Globulin Ratio 1.3 Urine Color Yellow Urine Clarity Cloudy Urine pH 6.0 Ur Specific [place] 1.014 Urine Protein 30 Urine Glucose (UA) Neg Urine Ketones Negative Urine Blood Negative Urine Nitrate Negative Urine Bilirubin Negative Urine Urobilinogen 0.2-1.0 Ur Leukocyte Esterase Small Urine RBC (Auto) 2 Urine Microscopic WBC 15 H Ur Squamous Epith Cells 31 H Urine Bacteria Occ H Hyaline Casts 0-2 Attending/Attestation - Attestation I have personally seen and examined this patient.: Yes I have fully participated in the care of the patient.: Yes I have reviewed all pertinent clinical information: Yes Notes (Text): 10/06/18 19:19 Patient seen and examined with resident. Case discussed and agreed with assessment and plan of management. 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 Patient now has adrenal insufficiency and needed supplement.
[2018-10-06] MEDS ORDERED: Hydrocortisone- 100 MG in Sodium Chloride 0.9% 100 ML IV SCH (21:00)
[2018-10-06] MEDS: Sodium Chloride 0.9% 1,000 ML IV SCH (22:09)
[2018-10-07] MEDS ORDERED: Hydrocortisone- 100 MG in Sodium Chloride 0.9% 100 ML IV SCH (01:00)
[2018-10-07] MEDS: Sodium Chloride 0.9% 1,000 ML IV SCH ×3 (02:32→17:17)
--- NOTE | 2018-10-07 05:41 | CON ---
DATE: 10/06/2018 ENDOCRINOLOGY CONSULTATION LOCATION: Room 407. HISTORY OF PRESENT ILLNESS: This is a 38-year-old female with known history of Keith disease and underwent a left robotic adrenalectomy and presenting here with progressive dizziness and lightheadedness with GI related manifestations and is now being referred for evaluation of adrenal insufficiency. PAST MEDICAL HISTORY: As mentioned above. She had a left adrenal adenoma and underwent a left adrenalectomy on 09/25/2018 and was admitted actually a week ago with pneumonia and persistent tachycardia, and a random cortisol obtained at that time was only resulted upon discharge with a cortisol level of less than 0.2 as noted. History of hypertension and dyslipidemia with underlying obesity. PAST SURGICAL HISTORY: She had a prior cholecystectomy in 2008 and tubal ligation in 2014. SOCIAL HISTORY: The patient has supportive family. No known substance use. FAMILY HISTORY: Positive hypertension and diabetes. REVIEW OF SYSTEMS: Admits to generalized body weakness with progressive bouts of dizziness and lightheadedness and suboptimal energy level. No chest pains or palpitations but admits to episodic shortness of breath especially on exertion. Her oral intake has been variable with nausea, dyspepsia, anorexia and vague upper abdominal pain. No alterations of bowel and urinary patterns. PHYSICAL EXAMINATION: GENERAL: This is an obese female in no apparent distress. VITAL SIGNS: With a blood pressure of 140/80, pulse of 100 beats per minute and regular, temperature 99, respirations 20. Height is 5 feet 3 inches. Weight is 201 pounds. HEENT: Head: Normocephalic. Eyes: Anicteric with pink conjunctivae. Funduscopy not possible at this time. Ears, nose and throat otherwise normal. NECK: Supple. Thyroid gland is normal in size. No carotid bruits or any cervical adenopathy. CARDIOPULMONARY: Some adynamic precordium. S1 and S2 are rapid and regular. Lungs are clear to auscultation. ABDOMEN: Obese, soft with positive bowel sounds. EXTREMITIES: No peripheral edema. Pulses are +2 bilaterally. LABORATORY DATA: Her serum cortisol done with the previous admission was less than 0.2 mcg/dL. The chemistries showed a BUN of 6, sodium 138, potassium 4.1, chloride 105, CO2 of 24, glucose 120, and creatinine 0.8. The p.m. cortisol done today was 4.57. 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 She now has postsurgical adrenal insufficiency with associated gastrointestinal related complaints and constitutional symptoms thereof. PLAN OF MANAGEMENT: We will initiate a stat dose of hydrocortisone given as 100 mg IV piggyback today followed by a maintenance dosing of 100 mg IV piggyback every 8 hours. We will repeat serum cortisol levels and switch her over to oral steroid replacement therapy upon discharge at a recommended dose of 20 mg every 8 a.m. and 10 mg at every 6 p.m. as ordered. We will follow and advise accordingly. Haleigh Beckham MD
[2018-10-07 05:52] LABS: BASO % 0.4 % (0.0-2.0); EOS % 0.2 % (0.0-4.0); HEMOGLOBIN 10.3 g/dL (12.0-16.0); LYMPH # 1.2 K/uL (1.0-4.3); LYMPH % 17.5 % (20.0-40.0); MEAN CELL VOLUME 90.4 fl (81.0-99.0); MEAN CORPUSCULAR HEMOGLOBIN 30.6 pg (27.0-31.0); MEAN CORPUSCULAR HGB CONC 33.8 g/dL (33.0-37.0); MEAN PLATELET VOLUME 8.3 fl (7.2-11.7); MONO # 0.2 K/uL (0.0-0.8); MONO % 3.2 % (0.0-10.0); NEUT # 5.5 K/uL (1.8-7.0); NEUT % 78.7 % (50.0-75.0); RBC 3.38 Mil/uL (3.80-5.20); RED CELL DISTRIBUTION WIDTH 18.1 % (11.5-14.5); WHITE BLOOD COUNT 6.9 K/uL (4.8-10.8)
[2018-10-07 06:08] LABS: ALB/GLOB RATIO 1.2 (1.0-2.1); ALBUMIN 3.5 g/dL (3.5-5.0); ALT/SGPT 197 U/L (9-52); AST/SGOT 95 U/L (14-36); BLOOD UREA NITROGEN 5 mg/dl (7-17); CALCIUM 9.5 mg/dL (8.4-10.2); GFR NON-AFRICAN AMERICAN > 60; HDL CHOLESTEROL 23 MG/DL (30-70)
[2018-10-07 06:14] LABS: LDL CHOLESTEROL 69 mg/dL (0-129)
--- NOTE | 2018-10-07 08:55 | CP.PCM.PN ---
<Devora Cobb - Last Filed: 10/07/18 17:11> Subjective - Date & Time of Evaluation Date of Evaluation: 10/07/18 Time of Evaluation: 09:16 - Subjective Subjective: Patient was seen and examined this morning. Patient complaining of suprapubic pain but denies any dysuria. She also reports some nausea. Denies any vomitting, f/c/chest pain or shortness of breath. Objective - Vital Signs/Intake and Output Vital Signs (last 24 hours): Temp Pulse Resp BP Pulse Ox 98.2 F 100 H 20 112/73 95 10/07/18 08:04 10/07/18 08:04 10/07/18 08:04 10/07/18 08:04 10/07/18 08:04 - Medications Medications: Current Medications Docusate Sodium (Colace) 100 mg PO BID PRN PRN Reason: Constipation Hydrocortisone Sodium Succinate (Solu-Cortef) 100 mg IV Q8H [facility] Last Admin: 10/07/18 02:12 Dose: Not Given Sodium Chloride (Sodium Chloride 0.9%) 1,000 mls @ 1,000 mls/hr IV .Q1H [facility] Stop: 10/07/18 13:37 Last Admin: 10/06/18 14:24 Dose: 1,000 mls/hr Sodium Chloride (Sodium Chloride 0.9%) 1,000 mls @ 125 mls/hr IV .Q8H [facility] Stop: 10/07/18 19:20 Last Admin: 10/07/18 02:32 Dose: Not Given Ceftriaxone Sodium 1 gm/ (Sodium Chloride) 100 mls @ 100 mls/hr IVPB DAILY [facility]; Protocol Metoprolol Tartrate (Lopressor) 12.5 mg PO Q12H [facility] Last Admin: 10/06/18 21:23 Dose: Not Given Pantoprazole Sodium (Protonix Ec Tab) 40 mg PO DAILY [facility] - Labs Labs: 10/07/18 04:30 10/07/18 04:30 - Constitutional Appears: Non-toxic - Head Exam Head Exam: ATRAUMATIC, NORMAL INSPECTION Additional comments: facial plethora noted - Eye Exam Eye Exam: EOMI - ENT Exam ENT Exam: Mucous Membranes Moist - Respiratory Exam Respiratory Exam: Clear to Ausculation Bilateral. absent: Rhonchi, Wheezes - Cardiovascular Exam Cardiovascular Exam: Tachycardia, +S1, +S2 - GI/Abdominal Exam GI & Abdominal Exam: Soft, Normal Bowel Sounds. 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 1. Adrenal Crisis -Hypocortisolism, symptomatic with AM Cortisol <0.2 on 10/03/18. -C/w IV Hydrocortisone 100mg Q8H today; Start Hydrocortisone 20mg PO tomorrow 8am, decrease to 10mg 6pm tomorrow, and discharge home tomorrow with PO hydroco rtisone 10mg PO QD as per Dr. Beckham with repeat AM cortisol levels in 4 wks. - Dr Beckham recommendations appreciated. -PM cortisol 4.57 -F/U ACTH. 2. 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 3.Sinus tachycardia -PE ruled out by CT Chest. -Thyroid profile wnl -Continue: Metoprolol 12.5mg PO Q12H -BP: 120/75, P-100; cont. to monitor vs 4. Anxiety -Likely related to hypocortisolism. -S/P Ativan 0.5mg. 5. 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 -Stable, BP BP: 120/75. -Metoprolol 12.5mg PO Q12H initiated for tachycardia. -Monitor vs. 6.Transaminitis (Acute) -Elevated AST/ALT: 134/219 10/06/18. Trending down- AST/ALT: 95/197 -No liver abnormalities on CT Abdomen. --Repeat CMP. 7. UTI -15 WBC & small leuk on UA -suprapubic pain -Started ceftriaxone 1g IV QD today 7. DVT prophylaxis -Lovenox 40 mg sc daily <Levi Azar D - Last Filed: 10/07/18 17:29> Objective - Vital Signs/Intake and Output Vital Signs (last 24 hours): Temp Pulse Resp BP Pulse Ox 97.7 F 117 H 20 120/75 96 10/07/18 15:51 10/07/18 15:51 10/07/18 15:51 10/07/18 15:51 10/07/18 15:51 - Medications Medications: Current Medications Docusate Sodium (Colace) 100 mg PO BID PRN PRN Reason: Constipation Hydrocortisone (Cortef) 20 mg PO ONCE ONE Stop: 10/08/18 08:01 Hydrocortisone (Cortef) 20 mg PO QAM [facility] Hydrocortisone (Cortef) 10 mg PO QPM [facility] Sodium Chloride (Sodium Chloride 0.9%) 1,000 mls @ 125 mls/hr IV .Q8H [facility] Stop: 10/07/18 19:20 Last Admin: 10/07/18 17:10 Dose: Not Given Ceftriaxone Sodium 1 gm/ (Sodium Chloride) 100 mls @ 100 mls/hr IVPB DAILY [facility]; Protocol Last Admin: 10/07/18 11:35 Dose: 100 mls/hr Sodium Chloride (Sodium Chloride 0.9%) 1,000 mls @ 100 mls/hr IV .Q10H [facility] Stop: 10/08/18 17:09 Last Admin: 10/07/18 17:17 Dose: 100 mls/hr Metoprolol Tartrate (Lopressor) 12.5 mg PO Q12H [facility] Last Admin: 10/07/18 10:24 Dose: 12.5 mg Pantoprazole Sodium (Protonix Ec Tab) 40 mg PO DAILY [facility] Last Admin: 10/07/18 10:25 Dose: 40 mg - Labs Labs: 10/07/18 04:30 10/07/18 04:30 Attending/Attestation - Attestation I have personally seen and examined this patient.: Yes I have fully participated in the care of the patient.: Yes I have reviewed all pertinent clinical information, including history, physical exam and plan: Yes Notes (Text): 10/07/18 17:28 Patient seen and examined with resident. Case discussed and agreed with assessm ent and plan. Hydrocortisone switched from IV to PO.
--- NOTE | 2018-10-07 09:10 | CARD ---
APPROVED REPORT Date of service: 10/06/2018 EKG Measurement Heart [id number] <Conclusion> Sinus tachycardia Otherwise normal ECG
[2018-10-07] MEDS: Pantoprazole 40 mg EC Tab PO SCH (10:25)
[2018-10-07 13:55] LABS: HEPATITIS B SURFACE AG Negative (NEGATIVE)
[2018-10-07 14:01] LABS: HEPATITIS A IGM NEGATIVE (NEGATIVE); HEPATITIS B CORE AB NEGATIVE (NEGATIVE)
[2018-10-07 14:12] LABS: HEPATITIS C ANTIBODY NEGATIVE (NEGATIVE)
[2018-10-07] MEDS ORDERED: Hydrocortisone- 100 MG in Sodium Chloride 0.9% 100 ML IV STA (17:35)
--- NOTE | 2018-10-08 00:59 | PN ---
DATE: 10/07/2018 ENDOCRINOLOGY FOLLOWUP NOTE LOCATION: Room 407. SUBJECTIVE: This is a 38-year-old female with Keith syndrome and with recent left adrenalectomy, presenting here with generalized body weakness and progressive dizziness and lightheadedness and hypotension and is now improving clinically and metabolically as noted thereof. LABORATORY DATA: Her repeat chemistry showed a BUN of 5, sodium 140, potassium 4.4, chloride 108, CO2 of 25, glucose 151 and creatinine 0.7. Her repeat cortisol level done today is 32.2 as noted. ASSESSMENT: This is a 38-year-old female with postoperative and surgical hypoadrenalism or adrenal insufficiency on the background of Keith syndrome as noted. PLAN OF MANAGEMENT: We will continue the IV hydrocortisone given as 100 mg every 8 hours today as ordered. Moreover, we will switch over starting tomorrow morning to oral steroid therapy with hydrocortisone given as 20 mg every 08:00 a.m. and 10 mg every 06:00 p.m. as ordered. We will obtain serial chemistries and supplement accordingly needed. We will follow. Haleigh Beckham MD
[2018-10-08] MEDS: Sodium Chloride 0.9% 1,000 ML IV SCH ×3 (01:16→14:03)
[2018-10-08 06:52] LABS: BASO % 0.4 % (0.0-2.0); EOS % 0.6 % (0.0-4.0); LYMPH # 2.2 K/uL (1.0-4.3); LYMPH % 27.1 % (20.0-40.0); MEAN CELL VOLUME 91.4 fl (81.0-99.0); MEAN CORPUSCULAR HEMOGLOBIN 30.2 pg (27.0-31.0); MEAN CORPUSCULAR HGB CONC 33.1 g/dL (33.0-37.0); MEAN PLATELET VOLUME 8.6 fl (7.2-11.7); MONO # 0.6 K/uL (0.0-0.8); MONO % 7.8 % (0.0-10.0); NEUT # 5.2 K/uL (1.8-7.0); NEUT % 64.1 % (50.0-75.0); NRBC % 0.1 % (0.0-0.0); RBC 2.98 Mil/uL (3.80-5.20); WHITE BLOOD COUNT 8.2 K/uL (4.8-10.8)
[2018-10-08 07:07] LABS: ALB/GLOB RATIO 1.2 (1.0-2.1); ALBUMIN 3.2 g/dL (3.5-5.0); ALT/SGPT 148 U/L (9-52); AST/SGOT 62 U/L (14-36); BLOOD UREA NITROGEN 8 mg/dl (7-17); CALCIUM 9.2 mg/dL (8.4-10.2); GFR NON-AFRICAN AMERICAN > 60
[2018-10-08 08:33] VITALS: BP 109/66; PULSE 94; RESP 20; TEMP 97.8; O2SAT 99
[2018-10-08] MEDS: Pantoprazole 40 mg EC Tab PO SCH (10:11)
--- NOTE | 2018-10-08 12:27 | CP.PCM.DIS ---
<Devora Cobb - Last Filed: 10/08/18 17:07> Provider - Provider Date of Admission: 10/06/18 17:03 Attending physician: Levi Azar MD Consults: 10/06/18 18:09 Endocrinology Consult Stat Comment: Consulting Provider: Haleigh Beckham Consulting Physician: Haleigh Beckham Reason for Consult: adrenal insufficiency Time Spent in preparation of Discharge (in minutes): 45 Hospital Course - Lab Results Lab Results: Most Recent Lab Values WBC 8.2 K/uL (4.8-10.8) 10/08/18 05:40 RBC 2.98 Mil/uL (3.80-5.20) L 10/08/18 05:40 Hgb 9.0 g/dL (12.0-16.0) L 10/08/18 05:40 Hct 27.3 % (34.0-47.0) L 10/08/18 05:40 MCV 91.4 fl (81.0-99.0) 10/08/18 05:40 MCH 30.2 pg (27.0-31.0) 10/08/18 05:40 MCHC 33.1 g/dL (33.0-37.0) 10/08/18 05:40 RDW 18.0 % (11.5-14.5) H 10/08/18 05:40 Plt Count 211 K/uL (130-400) 10/08/18 05:40 MPV 8.6 fl (7.2-11.7) 10/08/18 05:40 Neut % (Auto) 64.1 % (50.0-75.0) 10/08/18 05:40 Lymph % (Auto) 27.1 % (20.0-40.0) 10/08/18 05:40 Stokes % (Auto) 7.8 % (0.0-10.0) 10/08/18 05:40 Eos % (Auto) 0.6 % (0.0-4.0) 10/08/18 05:40 Baso % (Auto) 0.4 % (0.0-2.0) 10/08/18 05:40 Neut # (Auto) 5.2 K/uL (1.8-7.0) 10/08/18 05:40 Lymph # (Auto) 2.2 K/uL (1.0-4.3) 10/08/18 05:40 Stokes # (Auto) 0.6 K/uL (0.0-0.8) 10/08/18 05:40 Eos # (Auto) 0.0 K/uL (0.0-0.7) 10/08/18 05:40 Baso # (Auto) 0.0 K/uL (0.0-0.2) 10/08/18 05:40 Sodium 143 mmol/l (132-148) 10/08/18 05:40 Potassium 3.5 MMOL/L (3.6-5.0) L 10/08/18 05:40 Chloride 111 mmol/L (98-107) H 10/08/18 05:40 Carbon Dioxide 25 mmol/L (22-30) 10/08/18 05:40 Anion Gap 11 (10-20) 10/08/18 05:40 BUN 8 mg/dl (7-17) 10/08/18 05:40 Creatinine 0.8 mg/dl (0.7-1.2) 10/08/18 05:40 Est GFR ( Amer) > 60 10/08/18 05:40 Est GFR (Non-Af Amer) > 60 10/08/18 05:40 Random Glucose 145 mg/dL (65-105) H 10/08/18 05:40 Calcium 9.2 mg/dL (8.4-10.2) 10/08/18 05:40 Phosphorus 5.0 mg/dl (2.5-4.5) H 10/06/18 14:00 Magnesium 1.9 MG/DL (1.6-2.3) 10/07/18 04:30 Total Bilirubin 0.2 mg/dl (0.2-1.3) 10/08/18 05:40 AST 62 U/L (14-36) H D 10/08/18 05:40 ALT 148 U/L (9-52) H D 10/08/18 05:40 Alkaline Phosphatase 60 U/L (38-126) 10/08/18 05:40 Troponin I < 0.0120 ng/mL (0.00-0.120) 10/06/18 14:00 Total Protein 5.9 G/DL (6.3-8.2) L 10/08/18 05:40 Albumin 3.2 g/dL (3.5-5.0) L 10/08/18 05:40 Globulin 2.7 gm/dL (2.2-3.9) 10/08/18 05:40 Albumin/Globulin Ratio 1.2 (1.0-2.1) 10/08/18 05:40 Triglycerides 163 mg/DL (0-149) H 10/07/18 04:30 Cholesterol 119 mg/dL (0-199) 10/07/18 04:30 LDL Cholesterol Direct 69 mg/dL (0-129) 10/07/18 04:30 HDL Cholesterol 23 MG/DL (30-70) L 10/07/18 04:30 TSH 3rd Generation 0.60 mIU/ML (0.46-4.68) 10/07/18 04:30 Cortisol AM Sample 32.2 ug/dL (4.46-22.7) H 10/07/18 04:30 Plasma Cortisol PM 4.57 ug/dL (1.7-14.1) 10/06/18 15:46 ACTH 10 pg/mL (6-50) 10/06/18 20:42 Urine Color Yellow (YELLOW) 10/06/18 14:10 Urine Clarity Cloudy (Clear) 10/06/18 14:10 Urine pH 6.0 (5.0-8.0) 10/06/18 14:10 Ur Specific [place] 1.014 (1.003-1.030) 10/06/18 14:10 Urine Protein 30 mg/dL (NEGATIVE) 10/06/18 14:10 Urine Glucose (UA) Neg mg/dL (NEGATIVE) 10/06/18 14:10 Urine Ketones Negative mg/dL (NEGATIVE) 10/06/18 14:10 Urine Blood Negative (NEGATIVE) 10/06/18 14:10 Urine Nitrate Negative (NEGATIVE) 10/06/18 14:10 Urine Bilirubin Negative (NEGATIVE) 10/06/18 14:10 Urine Urobilinogen 0.2-1.0 mg/dL (0.2-1.0) 10/06/18 14:10 Ur Leukocyte Esterase Small Igor/uL (Negative) 10/06/18 14:10 Urine RBC (Auto) 2 /hpf (0-3) 10/06/18 14:10 Urine Microscopic WBC 15 /hpf (0-5) H 10/06/18 14:10 Ur Squamous Epith Cells 31 /hpf (0-5) H 10/06/18 14:10 Urine Bacteria Occ (<OCC) H 10/06/18 14:10 Hyaline Casts 0-2 /hpf (0-2) 10/06/18 14:10 Hepatitis A IgM Ab Negative (NEGATIVE) 10/07/18 04:30 Hep Bs Antigen Negative (NEGATIVE) 10/07/18 04:30 Hep B Core IgM Ab Negative (NEGATIVE) 10/07/18 04:30 Hepatitis C Antibody Negative (NEGATIVE) 10/07/18 04:30 - Hospital Course Hospital Course: 38 year old Female with PMHx of HTN, obesity & [place]'s disease s/p L adrenalectomy on 09/25/18 admitted for evaluation and management of adrenal lovely is AM Cortisol <0.2 on 10/03/18. Patient was seen and examined this morning. Patient's AM cortisol today 10/08 was low, 1.2, decreased from 32.2 yesterday. 1. Adrenal Crisis -As per Dr. Beckham continue Hydrocortisone 20mg 8am and 10mg 6pm daily x 3o days. -Repeat AM cortisol level in 4 weeks. If levels >8, then no need for continued hydrocortisone. 2. hx of [place] disease 3. Sinus tachycardia -Metoprolol increased to 25mg PO BID 4. 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 Transaminitis (acute) 7. UTI -C/w Keflex 500mg BID x 3 days - Date & Time of H&P Date of H&P: 10/08/18 Time of H&P: 10:32 Discharge Exam - Head Exam Head Exam: ATRAUMATIC, NORMAL INSPECTION Additional comments: round facies - ENT Exam ENT Exam: Mucous Membranes Moist - Respiratory Exam Respiratory Exam: Clear to PA & Lateral. absent: Wheezes - Cardiovascular Exam Cardiovascular Exam: +S1, +S2 Additional comments: borderline tachycardia - GI/Abdominal Exam GI & Abdominal Exam: Normal Bowel Sounds, Soft, Tenderness. absent: Guarding, Rebound, Rigid Additional comments: abnormal sutures removed; surgical sites healing well - Extremities Exam Extremities exam: pedal pulses present - Neurological Exam Neurological exam: Alert, Oriented x3 - Psychiatric Exam Psychiatric exam: Anxious - Skin Skin Exam: Dry Discharge Plan - Discharge Medications Prescriptions: Cephalexin [Keflex] 500 mg PO BID #6 capsule Hydrocortisone [Cortef] 20 mg PO QAM@0800 #30 tab Hydrocortisone [Cortef] 10 mg PO QPM #30 tab Metoprolol Tartrate [Lopressor] 25 mg PO Q12H #60 tab - Follow Up Plan Condition: SERIOUS Disposition: HOME/ ROUTINE Instructions: Adrenal Crisis Additional Instructions: hacer meghana con ramsey doctor primario dentro 1 semana Referrals: [facility] [Outside] Haleigh Beckham MD [Medical Doctor] - <Levi Azar - Last Filed: 10/08/18 17:26> Provider - Provider Date of Admission: 10/06/18 17:03 Attending physician: Levi Azar MD Consults: 10/06/18 18:09 Endocrinology Consult Stat Comment: Consulting Provider: Haleigh Beckham Consulting Physician: Haleigh Beckham Reason for Consult: adrenal insufficiency Hospital Course - Lab Results Lab Results: Most Recent Lab Values WBC 8.2 K/uL (4.8-10.8) 10/08/18 05:40 RBC 2.98 Mil/uL (3.80-5.20) L 10/08/18 05:40 Hgb 9.0 g/dL (12.0-16.0) L 10/08/18 05:40 Hct 27.3 % (34.0-47.0) L 10/08/18 05:40 MCV 91.4 fl (81.0-99.0) 10/08/18 05:40 MCH 30.2 pg (27.0-31.0) 10/08/18 05:40 MCHC 33.1 g/dL (33.0-37.0) 10/08/18 05:40 RDW 18.0 % (11.5-14.5) H 10/08/18 05:40 Plt Count 211 K/uL (130-400) 10/08/18 05:40 MPV 8.6 fl (7.2-11.7) 10/08/18 05:40 Neut % (Auto) 64.1 % (50.0-75.0) 10/08/18 05:40 Lymph % (Auto) 27.1 % (20.0-40.0) 10/08/18 05:40 Stokes % (Auto) 7.8 % (0.0-10.0) 10/08/18 05:40 Eos % (Auto) 0.6 % (0.0-4.0) 10/08/18 05:40 Baso % (Auto) 0.4 % (0.0-2.0) 10/08/18 05:40 Neut # (Auto) 5.2 K/uL (1.8-7.0) 10/08/18 05:40 Lymph # (Auto) 2.2 K/uL (1.0-4.3) 10/08/18 05:40 Stokes # (Auto) 0.6 K/uL (0.0-0.8) 10/08/18 05:40 Eos # (Auto) 0.0 K/uL (0.0-0.7) 10/08/18 05:40 Baso # (Auto) 0.0 K/uL (0.0-0.2) 10/08/18 05:40 Sodium 143 mmol/l (132-148) 10/08/18 05:40 Potassium 3.5 MMOL/L (3.6-5.0) L 10/08/18 05:40 Chloride 111 mmol/L (98-107) H 10/08/18 05:40 Carbon Dioxide 25 mmol/L (22-30) 10/08/18 05:40 Anion Gap 11 (10-20) 10/08/18 05:40 BUN 8 mg/dl (7-17) 10/08/18 05:40 Creatinine 0.8 mg/dl (0.7-1.2) 10/08/18 05:40 Est GFR ( Amer) > 60 10/08/18 05:40 Est GFR (Non-Af Amer) > 60 10/08/18 05:40 Random Glucose 145 mg/dL (65-105) H 10/08/18 05:40 Calcium 9.2 mg/dL (8.4-10.2) 10/08/18 05:40 Phosphorus 5.0 mg/dl (2.5-4.5) H 10/06/18 14:00 Magnesium 1.9 MG/DL (1.6-2.3) 10/07/18 04:30 Total Bilirubin 0.2 mg/dl (0.2-1.3) 10/08/18 05:40 AST 62 U/L (14-36) H D 10/08/18 05:40 ALT 148 U/L (9-52) H D 10/08/18 05:40 Alkaline Phosphatase 60 U/L (38-126) 10/08/18 05:40 Troponin I < 0.0120 ng/mL (0.00-0.120) 10/06/18 14:00 Total Protein 5.9 G/DL (6.3-8.2) L 10/08/18 05:40 Albumin 3.2 g/dL (3.5-5.0) L 10/08/18 05:40 Globulin 2.7 gm/dL (2.2-3.9) 10/08/18 05:40 Albumin/Globulin Ratio 1.2 (1.0-2.1) 10/08/18 05:40 Triglycerides 163 mg/DL (0-149) H 10/07/18 04:30 Cholesterol 119 mg/dL (0-199) 10/07/18 04:30 LDL Cholesterol Direct 69 mg/dL (0-129) 10/07/18 04:30 HDL Cholesterol 23 MG/DL (30-70) L 10/07/18 04:30 TSH 3rd Generation 0.60 mIU/ML (0.46-4.68) 10/07/18 04:30 Cortisol AM Sample 1.2 ug/dL (4.46-22.7) L 10/08/18 05:40 Plasma Cortisol PM 4.57 ug/dL (1.7-14.1) 10/06/18 15:46 ACTH 10 pg/mL (6-50) 10/06/18 20:42 Urine Color Yellow (YELLOW) 10/06/18 14:10 Urine Clarity Cloudy (Clear) 10/06/18 14:10 Urine pH 6.0 (5.0-8.0) 10/06/18 14:10 Ur Specific [place] 1.014 (1.003-1.030) 10/06/18 14:10 Urine Protein 30 mg/dL (NEGATIVE) 10/06/18 14:10 Urine Glucose (UA) Neg mg/dL (NEGATIVE) 10/06/18 14:10 Urine Ketones Negative mg/dL (NEGATIVE) 10/06/18 14:10 Urine Blood Negative (NEGATIVE) 10/06/18 14:10 Urine Nitrate Negative (NEGATIVE) 10/06/18 14:10 Urine Bilirubin Negative (NEGATIVE) 10/06/18 14:10 Urine Urobilinogen 0.2-1.0 mg/dL (0.2-1.0) 10/06/18 14:10 Ur Leukocyte Esterase Small Igor/uL (Negative) 10/06/18 14:10 Urine RBC (Auto) 2 /hpf (0-3) 10/06/18 14:10 Urine Microscopic WBC 15 /hpf (0-5) H 10/06/18 14:10 Ur Squamous Epith Cells 31 /hpf (0-5) H 10/06/18 14:10 Urine Bacteria Occ (<OCC) H 10/06/18 14:10 Hyaline Casts 0-2 /hpf (0-2) 10/06/18 14:10 Hepatitis A IgM Ab Negative (NEGATIVE) 10/07/18 04:30 Hep Bs Antigen Negative (NEGATIVE) 10/07/18 04:30 Hep B Core IgM Ab Negative (NEGATIVE) 10/07/18 04:30 Hepatitis C Antibody Negative (NEGATIVE) 10/07/18 04:30 Attending/Attestation - Attestation I have personally seen and examined this patient.: Yes I have fully participated in the care of the patient.: Yes I have reviewed all pertinent clinical information, including history, physical exam and plan: Yes Notes (Text): 10/08/18 17:26 Patient seen and examined with resident. Case discussed and agreed with assessment. Patient discharged in stable condition.
--- NOTE | 2018-10-08 17:32 | PN ---
DATE: 10/08/2018 ENDO FOLLOWUP NOTE LOCATION: Room 655. SUBJECTIVE: This is a 38-year-old female with recent overt adrenal insufficiency postoperatively as noted following a recent left adrenalectomy for an underlying adrenal adenoma and is now being followed closely for metabolic management. Her latest cortisol level is 32.2 and today's level is still pending at this time. Her ACTH is 10 as expected with secondary hypoadrenalism. Her chemistry showed a BUN of 8, sodium 143, potassium 3.5, chloride 111, CO2 of 25, glucose 145 and creatinine 0.8. So at this time would recommend the switch over from parenteral hydrocortisone to oral steroid therapy as discussed with the ophthalmic medical assistant and hospitalist. We will start her with hydrocortisone given as 20 mg every 8:00 a.m. daily and 10 mg every 6:00 p.m. daily as ordered. Would recommend a repeat cortisol level in 4-6 weeks with dose adjustments to be undertaken thereof. We will follow. Haleigh Beckham MD
== END 2018-10-08 14:46 | disposition home or self-care (01) | DRG 424 ==
LOC: H.ER 13:14 → H.ERHOLD 17:03 → H.TEL 21:14 → H.MEDSURG1 10-08 00:42
DX: E27.2 Addisonian crisis (principal); E24.9 Cushing's syndrome, unspecified; I15.2 Hypertension secondary to endocrine disorders; E27.40 Unspecified adrenocortical insufficiency; E78.5 Hyperlipidemia, unspecified; E66.9 Obesity, unspecified; Z68.35 Body mass index [BMI] 35.0-35.9, adult; R00.0 Tachycardia, unspecified; F06.4 Anxiety disorder due to known physiological condition; R74.0 Nonspecific elevation of levels of transaminase and lactic acid dehydrogenase [LDH]; N39.0 Urinary tract infection, site not specified

== ENCOUNTER 2018-10-16 13:51 | Emergency (ER) | payer SELFPAY ==
[2018-10-16 13:51] VITALS: BMI 38.1
[2018-10-16 13:59] VITALS: RESP 18
[2018-10-16] MEDS ORDERED: Hydrocortisone- 100 MG in Sodium Chloride 0.9% 100 ML IV STA (14:28)
[2018-10-16] MEDS ORDERED: Dextrose 5%/0.9% NS 1,000 ML IV SCH (14:30)
[2018-10-16] MEDS ORDERED: Potassium Chloride 20 mEq ER Tab PO ONE ×2 (14:39→14:53)
[2018-10-16 14:57] LABS: BASO # 0.1 K/uL (0.0-0.2); BASO % 1.4 % (0.0-2.0); EOS # 0.1 K/uL (0.0-0.7); LYMPH # 1.5 K/uL (1.0-4.3); MEAN CELL VOLUME 89.5 fl (81.0-99.0); MEAN CORPUSCULAR HEMOGLOBIN 30.7 pg (27.0-31.0); MEAN CORPUSCULAR HGB CONC 34.3 g/dL (33.0-37.0); MEAN PLATELET VOLUME 8.2 fl (7.2-11.7); MONO # 0.5 K/uL (0.0-0.8); MONO % 9.4 % (0.0-10.0); NEUT # 3.6 K/uL (1.8-7.0); NEUT % 62.2 % (50.0-75.0); NRBC % 0.1 % (0.0-0.0); RBC 3.58 Mil/uL (3.80-5.20); WHITE BLOOD COUNT 5.9 K/uL (4.8-10.8)
--- NOTE | 2018-10-16 15:04 | ED PDOC ---
HPI: General Adult Time Seen by Provider: 10/16/18 14:07 Chief Complaint (Nursing): Abdominal Pain Chief Complaint (Provider): s/p Adrenalectomy History Per: Patient History/Exam Limitations: no limitations Onset/Duration Of Symptoms: Days (x2) Current Symptoms Are (Timing): Still Present Additional Complaint(s): 38 year old female s/p adrenalectomy two weeks ago presents to the ED for further evaluation. Patient was recently admitted on 10/06 for adrenal insufficiency requiring IV steroids and fluids, but was discharged on PO steroids which she has been compliant with. For the past two days, patient states she has been feeling shaky and jittery associated with some abdominal pain. She notes being seen outpatient this morning with a cortisol level of 0.7 and sent here for further eval. 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 ), HTN Denies: HIV, Chronic Kidney Disease - Surgical History Surgical History: Cholecystectomy Other surgeries: adrenalectomy - Family History Family History: States: Unknown Family Hx - Social History Current smoker - smoking cessation education provided: No Drugs: Denies - Immunization History Hx Tetanus Toxoid Vaccination: No Hx Influenza Vaccination: No Hx Pneumococcal Vaccination: No - Home Medications Home Medications: Ambulatory Orders Medication Instructions Recorded Le Mars-3 Fatty Acids [Le Mars-3] 1 cap PO DAILY 09/18/18 Cephalexin [Keflex] 500 mg PO BID #6 capsule 10/08/18 Hydrocortisone [Cortef] 10 mg PO QPM #30 tab 10/08/18 Hydrocortisone [Cortef] 20 mg PO QAM@0800 #30 tab 10/08/18 Metoprolol Tartrate [Lopressor] 25 mg PO Q12H #60 tab 10/08/18 - Allergies Allergies/Adverse Reactions: Allergies Allergy/AdvReac Type Severity Reaction Status Date / Time No Known Allergies Allergy Verified 10/02/18 17:01 Review of Systems ROS Statement: Except As Marked, All Systems Reviewed And Found Negative Constitutional: Positive for: Other (shaky/jittery) Gastrointestinal: Positive for: Abdominal Pain Physical Exam - Reviewed Nursing Documentation Reviewed: Yes Vital Signs Reviewed: Yes - Physical Exam Appears: Positive for: No Acute Distress Head Exam: Positive for: ATRAUMATIC, NORMAL INSPECTION, NORMOCEPHALIC Skin: Positive for: Normal Color, Warm, Dry. Negative for: Rash Eye Exam: Positive for: Normal appearance Neck: Positive for: Normal, Painless ROM, Supple Cardiovascular/Chest: Positive for: Tachycardia (at 100, but regular rhythm) Respiratory: Positive for: Normal Breath Sounds. Negative for: Accessory Muscle Use, Respiratory Distress Gastrointestinal/Abdominal: Positive for: Normal Exam, Soft, Other (healing surgical wounds to left side). Negative for: Tenderness Back: Positive for: Normal Inspection Extremity: Positive for: Normal ROM. Negative for: Calf Tenderness (bilaterally) Neurological/Psych: Positive for: Awake, Alert, Oriented (x3). Negative for: Motor/Sensory Deficits - Laboratory Results Result Diagrams: 10/16/18 14:40 10/16/18 14:40 - ECG O2 Sat by Pulse Oximetry: 96 (RA) Pulse Ox Interpretation: Normal Medical Decision Making Medical Decision Making: Time: 1428 Initial Impression: adrenal insufficiency despite taking PO steroids, but patient does not appear to be in adrenal crisis as electrolytes are normal and s he is not hypotensive Initial Plan: --CMP --U-dip --CBC with differential --IV Dextrose --K-Dur 20 meq PO --Endocrinology consult to see if patient should be on other steroids 1445 Dr. Beckham, top hat body maker, recommend Solu-CORETF IV, and d/c taking steroid as ordered. Low cortisol level most likely due to patient holding off on her steroids secondary to awaiting blood tests this morning. 1500 Patient care endorsed to Dr. Torres pending labs and reevaluation. Scribe Attestation: Documented by Wendy Doll, acting as a scribe for Thiago Hanks MD. Provider Scribe Attestation: All medical record entries made by the Scribe were at my direction and personally dictated by me. I have reviewed the chart and agree that the record accurately reflects my personal performance of the history, physical exam, medical decision making, and the department course for this patient. I have also personally directed, reviewed, and agree with the discharge instructions and disposition. Disposition - Clinical Impression Clinical Impression: Adrenal insufficiency - Patient ED Disposition Is Patient to be Admitted: Transfer of Care - Disposition Referrals: Salvador Thrasher APN [Primary Care Provider] - Disposition: Transfer of Care Disposition Time: 15:00 Condition: IMPROVED Additional Instructions: follow up with Dr Beckham and be sure to take your medications even when cortisol level is being measured return to the ED with any worsening or concerning symptoms Instructions: Adrenal Crisis Forms: [facility] (Citizen Of [place]), [facility] (Amharic) Print Language: SRI LANK[place] Patient Signed Over To: Christina Torres (pending reeval)
[2018-10-16 15:09] LABS: ALB/GLOB RATIO 1.4 (1.0-2.1); ALBUMIN 3.8 g/dL (3.5-5.0); ALT/SGPT 100 U/L (9-52); AST/SGOT 64 U/L (14-36); BLOOD UREA NITROGEN 13 mg/dl (7-17); CALCIUM 9.2 mg/dL (8.4-10.2); GFR NON-AFRICAN AMERICAN > 60
--- NOTE | 2018-10-16 15:31 | ED PDOC ---
- Laboratory Results Result Diagrams: 10/16/18 14:40 10/16/18 14:40 Lab Results: Total Bilirubin 0.6 mg/dl (0.2-1.3) 10/16/18 14:40 AST 64 U/L (14-36) H 10/16/18 14:40 ALT 100 U/L (9-52) H D 10/16/18 14:40 Alkaline Phosphatase 60 U/L (38-126) 10/16/18 14:40 Total Protein 6.5 G/DL (6.3-8.2) 10/16/18 14:40 Albumin 3.8 g/dL (3.5-5.0) 10/16/18 14:40 Globulin 2.7 gm/dL (2.2-3.9) 10/16/18 14:40 Albumin/Globulin Ratio 1.4 (1.0-2.1) 10/16/18 14:40 - ECG O2 Sat by Pulse Oximetry: 96 (RA) Medical Decision Making Medical Decision Makin Patient care endorsed from Dr. Hanks to this provider pending labs and reevaluation. 16:30 Patient reports feeling better and upon provider evaluation, she requires no further intervention in the ED at this time. Patient to be discharged home with encouraged outpatient followup. Used [employer] #[id number] to explain results and relay the need to take medications all the time regardless of when cortisol level is being drawn. Patient verbalizes understanding and agrees to plan and will follow up with Dr Beckham. Scribe Attestation: Documented by Wendy Doll, acting as a scribe for Christina Torres MD. Provider Scribe Attestation: All medical record entries made by the Scribe were at my direction and personally dictated by me. I have reviewed the chart and agree that the record accurately reflects my personal performance of the history, physical exam, medical decision making, and the department course for this patient. I have also personally directed, reviewed, and agree with the discharge instructions and disposition. Disposition - Clinical Impression Clinical Impression: Adrenal insufficiency - POA Present On Arrival: None - Disposition Referrals: Salvador Thrasher APN [Primary Care Provider] - Disposition: Routine/Home Disposition Time: 16:35 Condition: IMPROVED Additional Instructions: follow up with Dr Beckham and be sure to take your medications even when cortisol level is being measured return to the ED with any worsening or concerning symptoms Instructions: Adrenal Crisis Forms: [facility] (Welsh), [facility] (L[place]uanian) Print Language: [place]
[2018-10-16 16:44] VITALS: BP 135/80; PULSE 92; TEMP 98.4
[2018-10-17 16:44] VITALS: O2SAT 96
== END 2018-10-16 16:44 | disposition home or self-care (01) ==
LOC: SUPCPDRO 13:51 → H.ER 13:51
DX: E27.40 Unspecified adrenocortical insufficiency (principal); I10 Essential (primary) hypertension
CPT/HCPCS: 80053; 81025; 85025; 96374; 99283; J1720; J7042